=== PATIENT | female | born 1995 | race Caucasian/White ===

== ENCOUNTER 2019-12-22 13:41 | Emergency (ER) | payer BC, OTHER ==
--- NOTE | 2019-12-22 14:06 | ERPHSYRPT ---
- History of Present Illness Time Seen by Provider: 12/22/19 14:04 Source: patient Exam Limitations: no limitations Patient Subjective Stated Complaint: Pt c/o of pain in the right lateral side of neck that radiates to the jawbone and up the head causing blurred vision and head pain, pt states that this began yesterday afternoon and has gotten worse today Triage Nursing Assessment: Pt was brought to the ER by her , hypertensive , pain to right lateral side of neck with palpatation, denies being around anyone sick, nauseous, denies vomiting, rates overall pain as a 5/10 Physician History: Pt c/o of pain in the right lateral side of neck that radiates to the jawbone and up the head causing blurred vision and head pain, pt states that this began yesterday afternoon and has gotten worse today Timing/Duration: gradual onset Severity: moderate ENT Location: ear (R) Associated Symptoms: ear pain (R), facial pain/swelling, No fever, No chills Allergies/Adverse Reactions: No Known Drug Allergies Allergy (Verified 12/22/19 13:56) Home Medications: Losartan Potassium 100 mg PO DAILY 12/22/19 [History] Metoprolol Tartrate 50 mg PO BID 12/22/19 [History] Norethindrone-Ethin. Estradiol [Pirmella 1-35 28 Tablet] 1 each PO DAILY [History] Travel Risk - International Travel Have you traveled outside of the country in past 3 weeks: No Have you or anyone close to you been diagnosed with or: No Do your reside in a community with a known COVID-19 case?: Yes If Yes where:: [place] - Coronavirus Screening Has patient experienced Coronavirus symptoms: No - Review of Systems Constitutional: No Fever, No Chills Eyes: No Symptoms Ears, Nose, & Throat: Ear Pain, Throat Pain Respiratory: No Cough, No Dyspnea Cardiac: No Chest Pain, No Edema, No Syncope Abdominal/Gastrointestinal: No Abdominal Pain, No Nausea, No Vomiting, No Diarrhea Genitourinary Symptoms: No Dysuria Musculoskeletal: No Back Pain, No Neck Pain Skin: No Rash Neurological: No Dizziness, No Focal Weakness, No Sensory Changes Psychological: No Symptoms Endocrine: No Symptoms All Other Systems: Reviewed and Negative - Past Medical History Pertinent Past Medical History: Yes Cardiac History: Hypertension - Past Surgical History Past Surgical History: Yes Gastrointestinal: Cholecystectomy - Social History Smoking Status: Never smoker Exposure to second hand smoke: Yes Drug Use: none Patient Lives Alone: No - Female History Hx Last Menstrual Period: 12/05/2019 Hx Now: No (unsure) - Nursing Vital Signs Nursing Vital Signs: Initial Vital Signs Temperature 98.1 F 12/22/19 13:46 Pulse Rate 54 L 12/22/19 13:46 Blood Pressure 157/110 12/22/19 13:46 O2 Sat by Pulse Oximetry 97 12/22/19 13:46 Pain Scale Pain Intensity 5 - Physical Exam General Appearance: no apparent distress Eye Exam: bilateral eye: normal inspection Ear Exam: right ear: swelling Nasal Exam: normal inspection Throat Exam: pharynx swelling Neck Exam: normal inspection Cardiovascular/Respiratory Exam: chest non-tender Abdominal Exam: non-tender Neurologic Exam: alert, oriented x 3 SpO2: 97 - Course Nursing assessment & vital signs reviewed: Yes Lab/Rad Data: Laboratory Results 12/22/19 Range/Units 14:15 Group A Strep Antibody NOT DETECTED (NEGATIVE) - Progress Progress: unchanged Counseled pt/family regarding: lab results, diagnosis - Departure Departure Disposition: Home Clinical Impression: Pharyngitis, acute Qualifiers: Pharyngitis/tonsillitis etiology: other specified organisms Qualified Code(s): J02.8 - Acute pharyngitis due to other specified organisms Condition: Stable Critical Care Time: No Referrals: SLOANE TAYLOR [Primary Care Provider] - Instructions: Sore Throat, Adult (DC) Additional Instructions: Discharge/Care Plan WAI CÁRDENAS was seen on 12/22/19 in the Emergency Room. The patient was counseled regarding Diagnosis,Lab results, Imaging studies, need for follow up and when to return to the Emergency Room. Prescriptions given: Discharge Note I have spoken with the patient and/or caregivers. I have explained the patient' s condition, diagnosis and treatment plan based on the information available to me at this time. I have answered the patient's and/or caregiver's questions and addressed any concerns. The patient and/or caregivers have as good understanding of the patient's diagnosis, condition and treatment plan as can be expected at this point. The vital signs have been stable. The patient's condition is stable and appropriate for discharge from the emergency department. The patient will pursue further outpatient evaluation with the primary care physician or other designated or consulting physician as outlined in the discharge instructions. The patient and/or caregivers are agreeable to this plan of care and follow-up instructions have been explained in detail. The patient and/or caregivers have received these instruction. The patient/and or caregivers are aware that any significant change in condition or worsening of symptoms should prompt an immediate return to this or the closest emergency department or call 911. Prescriptions: Azithromycin [Zithromax] 250 mg PO UD 5 Days #6 tablet
[2019-12-22 14:56] VITALS: BP 101/59; PULSE 40; O2SAT 98
== END 2019-12-22 14:57 | disposition home or self-care (01) ==
LOC: ED 13:41
DX: J02.8 Acute pharyngitis due to other specified organisms (principal); I10 Essential (primary) hypertension; M54.2 Cervicalgia; R51 Headache
CPT/HCPCS: 87651; 99283

== ENCOUNTER 2020-01-04 14:43 | Emergency (ER) | payer BC ==
--- NOTE | 2020-01-04 15:19 | ERPHSYRPT ---
- History of Present Illness Time Seen by Provider: 01/04/20 15:17 Source: patient Exam Limitations: no limitations Patient Subjective Stated Complaint: pt reports approx 12/16/19 she dropped a mug onto the top of her right foot. pt states while at work today she stepped onto her right foot and heard a "pop" and began having pain to the right foot. Triage Nursing Assessment: pt is aox3, pupils perrl, afebrile, resps easy and non labored, cap refill < 3 seconds, pt skin pink warm dry. slight bruising noted to the dorsal right foot. skin is intact. pedal pulse strong. Physician History: pt reports approx 12/16/19 she dropped a mug onto the top of her right foot. pt states while at work today she stepped onto her right foot and heard a "pop" and began having pain to the right foot. Denies any other injury Method of Injury: twisted Occurred: just prior to arrival Quality: constant Severity of Pain-Max: moderate Severity of Pain-Current: moderate Lower Extremities Pain: ankle: right Modifying Factors: Improves With: nothing Associated Symptoms: popping sensation Allergies/Adverse Reactions: No Known Drug Allergies Allergy (Verified 01/04/20 15:04) Home Medications: Losartan Potassium 100 mg PO DAILY 12/22/19 [History] Metoprolol Tartrate 50 mg PO BID 12/22/19 [History] Norethindrone-Ethin. Estradiol [Pirmella 1-35 28 Tablet] 1 each PO DAILY [History] Hx Tetanus, Diphtheria Vaccination/Date Given: Yes Hx Influenza Vaccination/Date Given: Yes Hx Pneumococcal Vaccination/Date Given: No Immunizations Up to Date: Yes Travel Risk - International Travel Have you traveled outside of the country in past 3 weeks: No Have you or anyone close to you been diagnosed with or: No Do your reside in a community with a known COVID-19 case?: Yes If Yes where:: [place] - Coronavirus Screening Has patient experienced Coronavirus symptoms: No - Review of Systems Constitutional: No Symptoms Eyes: No Symptoms Ears, Nose, & Throat: No Symptoms Respiratory: No Symptoms Cardiac: No Symptoms Abdominal/Gastrointestinal: No Symptoms Genitourinary Symptoms: No Symptoms Musculoskeletal: Fall, Joint Pain, Joint Swelling (right ankle) - Past Medical History Pertinent Past Medical History: Yes Cardiac History: Hypertension - Past Surgical History Past Surgical History: Yes Gastrointestinal: Cholecystectomy - Social History Smoking Status: Never smoker Exposure to second hand smoke: Yes Drug Use: none Patient Lives Alone: Yes - Female History Hx Last Menstrual Period: 12/05/19 Hx Now: (unk) - Nursing Vital Signs Nursing Vital Signs: Initial Vital Signs Temperature 98 F 01/04/20 14:51 Pulse Rate 58 L 01/04/20 14:51 Respiratory Rate 18 01/04/20 14:51 Blood Pressure 142/96 01/04/20 14:51 O2 Sat by Pulse Oximetry 98 01/04/20 14:51 Pain Scale Pain Intensity 3 - Physical Exam General Appearance: no apparent distress Eyes, Ears, Nose, Throat Exam: normal ENT inspection Neck Exam: normal inspection Back Exam: normal inspection Ankle Exam: right ankle: pain, soft tissue tenderness, swelling SpO2: 98 - Radiology Exams Right Ankle X-ray Interpretation: Reviewed by me Ordered Tests: Active Orders 24 hr Category Date Time Status Cold Application STAT Care 01/04/20 14:55 Active ANKLE (3 VIEWS) Stat Exams 01/04/20 15:16 Taken FOOT (MINIMUM 3 VIEWS) Routine Exams 01/04/20 15:46 Taken - Departure Departure Disposition: Home Clinical Impression: Sprain of foot, right Qualifiers: Encounter type: initial encounter Qualified Code(s): S93.601A - Unspecified sprain of right foot, initial encounter Condition: Stable Critical Care Time: No Referrals: SLOANE TAYLOR [Primary Care Provider] - Instructions: Foot Sprain (DC) Additional Instructions: Discharge/Care Plan WAI CABRERA was seen on 01/04/20 in the Emergency Room. The patient was counseled regarding Diagnosis,Lab results, Imaging studies, need for follow up and when to return to the Emergency Room. Prescriptions given: Discharge Note I have spoken with the patient and/or caregivers. I have explained the patient' s condition, diagnosis and treatment plan based on the information available to me at this time. I have answered the patient's and/or caregiver's questions and addressed any concerns. The patient and/or caregivers have as good understanding of the patient's diagnosis, condition and treatment plan as can be expected at this point. The vital signs have been stable. The patient's condition is stable and appropriate for discharge from the emergency department. The patient will pursue further outpatient evaluation with the primary care physician or other designated or consulting physician as outlined in the discharge instructions. The patient and/or caregivers are agreeable to this plan of care and follow-up instructions have been explained in detail. The patient and/or caregivers have received these instruction. The patient/and or caregivers are aware that any significant change in condition or worsening of symptoms should prompt an immediate return to this or the closest emergency department or call 911. WAI CABRERA was seen on 01/04/20 n the Emergency Room. At that time you were treated for an emergent condition, during your visit Laboratory, Radiology and/or other procedures may have been ordered. It is very important that you follow-up with your Primary Care Physician SLOANE TAYLOR within the next 24-48 hours to review your Emergency Room visit and the final results of testing that was ordered. Some test results such as Urine Cultures, Blood Cultures, and other cultures if ordered will not be finalized for 24-48 hours. If you do not have a Primary Care Provider please call the medical records department at [phone] ext [phone] to obtain a copy of your results or you may sign into our patient portal to obtain these results by visiting us @ [email or web address] and completing the following steps: 1. Click on the Patient Portal link 2. Click the Patient Self Enrollment Link to complete the enrollment form and entering your 3. Once the enrollment form is completed you will receive an email with a temporary ID and password at the email address you provided. 4. Next choose a user name and password. Your user name must be at least 4 characters long and your password must be at least 4 characters long. 5. Choose a security question from the list and provide your answer to the question. If you already have signed into the Health Portal you may access your Health Care Information 27/02 by the following steps: 1. Login to our website @ [email or web address] 2. Enter your original user name and password. FAQS The [facility] Health Portal is an online tool that contains your Lab Results, Radiology Reports, Visit History, Discharge Instructions and Health Summary Lab and Radiology Results will not be available for 72 hours on the portal. The Portal is a secure site, passwords are encryted and URLs are re-written so they cannot be copied and pasted. You and authorized family members are the only ones who can access your Portal. Also there is a timeout feature that protects your information if you leave the Portal page open. If you have technical difficulty please use the Contact Us link on the page this will allow you to submit any questions you have regarding the Portal or you may contact the Medical Record Department at [phone] ext [phone]. Prescriptions: Naproxen 375 mg [Naprosyn 375 mg] 375 mg PO Q8H #30 tablet
[2020-01-04 16:39] VITALS: BP 116/63; PULSE 69; O2SAT 95
--- NOTE | 2020-01-04 20:59 | XRAY ---
Indication: Pain following injury 19 days ago. Comparison: None 3 nonweightbearing views right foot demonstrates tiny posterior heel spur. No other bony, articular, or soft tissue abnormalities.
--- NOTE | 2020-01-04 20:59 | XRAY ---
Indication: Pain following injury 19 days ago. Comparison: None 3 view right ankle demonstrates tiny posterior heel spur. No other bony, articular, or soft tissue abnormalities.
== END 2020-01-04 16:38 | disposition home or self-care (01) ==
LOC: ED 14:43
DX: S93.601A Unspecified sprain of right foot, initial encounter (principal); W22.8XXA Striking against or struck by other objects, initial encounter; Y93.89 Activity, other specified; Y92.29 Other specified public building as the place of occurrence of the external cause; Y99.0 Civilian activity done for income or pay
CPT/HCPCS: 73610; 73630; 99284

== ENCOUNTER 2020-08-14 09:29 | Emergency (ER) | payer BC ==
--- NOTE | 2020-08-14 10:01 | ERPHSYRPT ---
- History of Present Illness Time Seen by Provider: 08/14/20 10:01 Source: patient Exam Limitations: no limitations Patient Subjective Stated Complaint: Pt states that she is 10 weeks and took her blood pressure at work and it 169/101 Triage Nursing Assessment: Pt brought to the ER by her boyfriend, tachycardic, rates head pressure as 6/10 until she stands and then it is 8/10, pt feels like her pressure has been running high for about 3-4 days, blood pressure medicine was changed 2 days ago to a different one due to the other was not safe for the baby, pulses normal, pt doesn't appear to be in any distress Physician History: this is a 24-year-old overweight white female who is approximately 10 weeks pre gnant and presents with concerns of hypertension. Patient has a history of hypertension and was on metoprolol and losartan prior to her becoming . However her medication for controlling her blood pressure was changed to nifedipine XL once she was determined to be . Today she felt her head was a little bit cloudy and had pressure. These are her typical symptoms when she has had elevated blood pressure in the past. Patient states that her normal systolic blood pressure is 135 to 148 and her typical diastolic blood pressure is 70s to mid 80s. Timing/Duration: today Severity: mild Associated Symptoms: denies symptoms Allergies/Adverse Reactions: No Known Drug Allergies Allergy (Verified 08/14/20 09:52) Home Medications: NIFEdipine [Nifedipine ER] 30 mg PO BID 08/14/20 [History] Hx Tetanus, Diphtheria Vaccination/Date Given: Yes Hx Influenza Vaccination/Date Given: Yes Hx Pneumococcal Vaccination/Date Given: No Travel Risk - International Travel Have you traveled outside of the country in past 3 weeks: No - Coronavirus Screening Are you exhibiting any of the following symptoms?: No Close contact with a COVID-19 positive Pt in past 14-21 Days: No - Review of Systems Constitutional: No Symptoms Eyes: No Symptoms Ears, Nose, & Throat: No Symptoms Respiratory: No Symptoms Cardiac: No Symptoms Abdominal/Gastrointestinal: No Symptoms Genitourinary Symptoms: No Symptoms Musculoskeletal: No Symptoms Skin: No Symptoms Neurological: Headache (Not really a headache but more of a pressure and fullness sensation.) Psychological: No Symptoms Endocrine: No Symptoms Hematologic/Lymphatic: No Symptoms Immunological/Allergic: No Symptoms All Other Systems: Reviewed and Negative - Past Medical History Pertinent Past Medical History: Yes Neurological History: No Pertinent History ENT History: No Pertinent History Cardiac History: Hypertension Respiratory History: No Pertinent History Endocrine Medical History: No Pertinent History Musculoskeletal History: No Pertinent History GI Medical History: No Pertinent History History: No Pertinent History Psycho-Social History: No Pertinent History Female Reproductive Disorders: No Pertinent History - Past Surgical History Past Surgical History: Yes Neuro Surgical History: No Pertinent History Cardiac: No Pertinent History Respiratory: No Pertinent History Gastrointestinal: Cholecystectomy Genitourinary: No Pertinent History Musculoskeletal: No Pertinent History Female Surgical History: No Pertinent History - Social History Smoking Status: Never smoker Exposure to second hand smoke: Yes Drug Use: none Patient Lives Alone: Yes - Female History Hx Last Menstrual Period: 06/03/2020 Hx Now: Yes - Nursing Vital Signs Nursing Vital Signs: Initial Vital Signs Temperature 98.6 F 08/14/20 09:42 Pulse Rate 5 L 08/14/20 09:42 Blood Pressure 134/92 08/14/20 09:42 O2 Sat by Pulse Oximetry 99 08/14/20 09:42 Pain Scale Pain Intensity 0 - Physical Exam General Appearance: no apparent distress, anxiety, obese Eye Exam: PERRL/EOMI, eyes nml inspection Ears, Nose, Throat Exam: normal ENT inspection Neck Exam: normal inspection, non-tender, supple, full range of motion Respiratory Exam: normal breath sounds, lungs clear, airway intact, No chest tenderness, No respiratory distress Cardiovascular Exam: regular rate/rhythm, normal heart sounds, normal peripheral pulses Gastrointestinal/Abdomen Exam: soft, normal bowel sounds, No tenderness Pelvic Exam: not done Rectal Exam: not done Back Exam: normal inspection, normal range of motion, No CVA tenderness Extremity Exam: normal inspection, normal range of motion, pelvis stable Neurologic Exam: alert, oriented x 3, cooperative, bonbon dipper II-XII nml as tested, normal mood/affect, nml cerebellar function, nml station & gait, sensation nml Skin Exam: normal color, warm, dry Lymphatic Exam: adenopathy SpO2 Interpretation: normal SpO2: 99 O2 Delivery: Room Air - Course Nursing assessment & vital signs reviewed: Yes Ordered Tests: Active Orders 24 hr Category Date Time Status IV Insertion STAT Care 08/14/20 10:21 Active CBC W DIFF Stat Lab 08/14/20 10:21 Completed CMP Stat Lab 08/14/20 10:33 Completed CULTURE,URINE Stat Lab 08/14/20 10:34 Received UA W/RFX UR CULTURE Stat Lab 08/14/20 10:34 Completed Medication Summary Generic Name Dose Route Start Last Admin Trade Name Alisa PRN Reason Stop Dose Admin Sodium Chloride 500 mls @ 500 mls/hr 08/14/20 10:29 08/14/20 10:40 Sodium Chloride 0.9% 500 Ml IV 08/14/20 11:28 500 mls/hr .Q1H ONE Administration Discontinued Medications Generic Name Dose Route Start Last Admin Trade Name Alisa PRN Reason Stop Dose Admin Sodium Chloride Confirm 08/14/20 10:39 Sodium Chloride 0.9% 1000 Ml Administered 08/14/20 10:40 Dose 1,000 mls @ ud .ROUTE .STK-MED ONE Lab/Rad Data: Laboratory Result Diagrams 08/14/20 10:21 08/14/20 10:33 Laboratory Results 08/14/20 08/14/20 08/14/20 Range/Units 10:34 10:33 10:21 WBC 7.9 (4.0-10.5) K/mm3 RBC 4.71 (4.1-5.4) M/mm3 Hgb 13.2 (12.0-16.0) gm/dl Hct 39.7 (35-47) % MCV 84.3 (78-100) fl MCH 28.0 (26-32) pg MCHC 33.2 (32-36) g/dl RDW 13.9 (11.5-14.0) % Plt Count 299 (150-450) K/mm3 MPV 9.1 (7.5-11.0) fl Gran % 72.6 H (36.0-66.0) % Eos # (Auto) 0.08 (0-0.5) Absolute Lymphs (auto) 1.58 (1.0-4.6) Absolute Monos (auto) 0.47 (0.0-1.3) Lymphocytes % 20.1 L (24.0-44.0) % Monocytes % 6.0 (0.0-12.0) % Eosinophils % 1.0 (0.00-5.0) % Basophils % 0.3 (0.0-0.4) % Absolute Granulocytes 5.72 (1.4-6.9) Basophils # 0.02 (0-0.4) Sodium 136 L (137-145) mmol/L Potassium 3.8 (3.5-5.1) mmol/L Chloride 104 (98-107) mmol/L Carbon Dioxide 25 (22-30) mmol/L Anion Gap 11.4 (5-15) MEQ/L BUN 6 L (7-17) mg/dL Creatinine 0.40 L (0.52-1.04) mg/dL Estimated GFR > 60.0 ML/MIN Glucose 109 H (74-106) mg/dL Calcium 9.7 (8.4-10.2) mg/dL Total Bilirubin 0.60 (0.2-1.3) mg/dL AST 27 (14-36) U/L ALT 29 (0-35) U/L Alkaline Phosphatase 87 (38-126) U/L Serum Total Protein 7.6 (6.3-8.2) g/dL Albumin 4.1 (3.5-5.0) g/dL Urine Color ANAM (YELLOW) Urine Appearance CLOUDY (CLEAR) Urine pH 5.0 (5-6) Ur Specific Hutchinson 1.024 (1.005-1.025) Urine Protein 30 (Negative) Urine Ketones NEGATIVE (NEGATIVE) Urine Blood NEGATIVE (0-5) Raghav/ul Urine Nitrite NEGATIVE (NEGATIVE) Urine Bilirubin NEGATIVE (NEGATIVE) Urine Urobilinogen NEGATIVE (0-1) mg/dL Ur Leukocyte Esterase TRACE (NEGATIVE) Urine WBC (Auto) 6-10 (0-5) /HPF Urine RBC (Auto) 3-5 (0-2) /HPF U Epithel Cells (Auto) FEW (FEW) /HPF Urine Bacteria (Auto) FEW (NEGATIVE) /HPF Calcium Oxalate Crystal >100 (NEGATIVE) /HPF Urine Mucus (Auto) MANY (NEGATIVE) /HPF Urine Culture Reflexed YES (NO) Urine Glucose NEGATIVE (NEGATIVE) mg/dL - Progress Progress: improved, re-examined Progress Note: 08/14/20 11:25 Clinically, the patient's symptoms are improving. Her most recent systolic blood pressure is 113. She does have some protein in her urine. She also has a mild, early urinary tract infection and we will give her Keflex. She will follow up with her medication care manager for further management. Counseled pt/family regarding: lab results, diagnosis, need for follow-up - Departure Departure Disposition: Home Clinical Impression: UTI (urinary tract infection) during Condition: Stable Critical Care Time: No Referrals: SLOANE TAYLOR [Primary Care Provider] - Additional Instructions: Drink plenty of fluids. Call your medication care manager today to make arrangements for follow-up appointment and further management. Continue your medication as prescribed. Prescriptions: Cephalexin Mh 500 mg [Keflex 500 mg] 500 mg PO TID #15 capsule
[2020-08-14] MEDS ORDERED: Sodium Chloride 0.9% 500 ML 500 ML IV ONE (10:29)
[2020-08-14 10:39] LABS: Absolute Neutrophil Ct (ANC) 5.72 (1.4-6.9); BASOPHIL % 0.3 % (0.0-0.4); Basophil (Absolute #) 0.02 (0-0.4); Eosinophil (Absolute #) 0.08 (0-0.5); Hematocrit 39.7 % (35-47); Hemoglobin 13.2 gm/dl (12.0-16.0); Lymphocyte (Absolute #) 1.58 (1.0-4.6); Lymphocytes % 20.1 % (24.0-44.0); Mean Cell Volume 84.3 fl (78-100); Mean Corpuscular Hgb Concent. 33.2 g/dl (32-36); Mean Platelet Volume 9.1 fl (7.5-11.0); Monocyte (Absolute #) 0.47 (0.0-1.3); Neutrophil % 72.6 % (36.0-66.0); Platelet Count 299 K/mm3 (150-450); Red Blood Count 4.71 M/mm3 (4.1-5.4); Red Cell Distribution Width 13.9 % (11.5-14.0); White Blood Count 7.9 K/mm3 (4.0-10.5)
[2020-08-14] MEDS ORDERED: Sodium Chloride 0.9% 1000 ML 1,000 ML ONE (10:39)
[2020-08-14 10:51] VITALS: O2SAT 99
[2020-08-14 10:53] LABS: ALBUMIN 4.1 g/dL (3.5-5.0); ALKALINE PHOSPHATASE 87 U/L (38-126); ANION GAP 11.4 MEQ/L (5-15); BLOOD UREA NITROGEN 6 mg/dL (7-17); CHLORIDE 104 mmol/L (98-107); Calcium 9.7 mg/dL (8.4-10.2); Carbon Dioxide 25 mmol/L (22-30); EST GLOMERULAR FILTRATION RATE > 60.0 ML/MIN; Glucose 109 mg/dL (74-106); Potassium 3.8 mmol/L (3.5-5.1); SGOT/AST 27 U/L (14-36); SGPT/ALT 29 U/L (0-35); SODIUM 136 mmol/L (137-145); Total Protein 7.6 g/dL (6.3-8.2)
[2020-08-14 11:12] LABS: Appearance CLOUDY (CLEAR); Bacteria FEW /HPF (NEGATIVE); Bilirubin NEGATIVE (NEGATIVE); Blood NEGATIVE Ery/ul (0-5); Calcium Oxalate Crystals >100 /HPF (NEGATIVE); Epithelial Cells FEW /HPF (FEW); Glucose NEGATIVE (NEGATIVE); Ketones NEGATIVE (NEGATIVE); Leukocyte Esterase TRACE (NEGATIVE); Mucus MANY /HPF (NEGATIVE); Nitrite NEGATIVE (NEGATIVE); Protein,Urine Dip 30 (Negative); Specific Gravity 1.024 (1.005-1.025); Urobilinogen NEGATIVE mg/dL (0-1)
[2020-08-14 11:27] VITALS: BP 113/73; PULSE 95
[2020-08-14] MEDS ORDERED: KEFLEX 500 MG PO ONE (11:27)
[2020-08-14] MEDS ORDERED: KEFLEX 500 MG ONE (11:37)
== END 2020-08-14 11:51 | disposition home or self-care (01) ==
LOC: ED 09:29
DX: O23.41 Unspecified infection of urinary tract in pregnancy, first trimester (principal); Z3A.10 10 weeks gestation of pregnancy; R51.9 Headache, unspecified; I10 Essential (primary) hypertension
CPT/HCPCS: 36000; 36415; 80053; 81001; 85025; 87086; 96360; 99284; A9270-GY

== ENCOUNTER 2020-09-18 14:11 | Emergency (ER) | payer BC ==
--- NOTE | 2020-09-18 14:19 | ERPHSYRPT ---
- History of Present Illness Time Seen by Provider: 09/18/20 14:19 Source: patient Exam Limitations: no limitations Physician History: This is an obese 24-year-old white female with history of hypertension and is 15 weeks who presents with sudden onset of suprapubic cramping without vaginal bleeding that occurred this morning. She was concerned about the cram ping earlier and thought she would come in to be evaluated. 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 She had no dysuria or hematuria. She has had no vaginal bleeding. On arrival, she has no complaints of abdominal pain and the cramping has nearly completely subsided. Ultrasound performed on 08/13/2020, showed a single intrauterine . Timing/Duration: today Activites at Onset: none Quality: cramping Onset Location: suprapubic Pain Radiation: none Severity of Pain-Max: mild Severity of Pain-Current: none Prior abdominal problems: none Sexual intercourse history: non-contributory Modifying Factors: Improves With: nothing Associated Symptoms: denies symptoms Allergies/Adverse Reactions: No Known Drug Allergies Allergy (Verified 09/18/20 14:14) Home Medications: NIFEdipine [Nifedipine ER] 30 mg PO BID 08/14/20 [History] Labetalol HCl 100 mg [Trandate 100 MG] 1 ea DAILY 09/18/20 [History] Hx Tetanus, Diphtheria Vaccination/Date Given: Yes Hx Influenza Vaccination/Date Given: Yes Hx Pneumococcal Vaccination/Date Given: No Travel Risk - International Travel Have you traveled outside of the country in past 3 weeks: No - Coronavirus Screening Are you exhibiting any of the following symptoms?: No Close contact with a COVID-19 positive Pt in past 14-21 Days: No - Review of Systems Constitutional: No Symptoms Eyes: No Symptoms Ears, Nose, & Throat: No Symptoms Respiratory: No Symptoms Cardiac: No Symptoms Abdominal/Gastrointestinal: No Symptoms Genitourinary Symptoms: No Symptoms Musculoskeletal: No Symptoms Skin: No Symptoms Neurological: No Symptoms Psychological: No Symptoms Endocrine: No Symptoms Hematologic/Lymphatic: No Symptoms Immunological/Allergic: No Symptoms All Other Systems: Reviewed and Negative - Past Medical History Pertinent Past Medical History: Yes Neurological History: No Pertinent History ENT History: No Pertinent History Cardiac History: Hypertension Respiratory History: No Pertinent History Endocrine Medical History: No Pertinent History Musculoskeletal History: No Pertinent History GI Medical History: No Pertinent History History: No Pertinent History Psycho-Social History: No Pertinent History Female Reproductive Disorders: No Pertinent History - Past Surgical History Past Surgical History: Yes Neuro Surgical History: No Pertinent History Cardiac: No Pertinent History Respiratory: No Pertinent History Gastrointestinal: Cholecystectomy Genitourinary: No Pertinent History Musculoskeletal: No Pertinent History Female Surgical History: No Pertinent History - Social History Smoking Status: Never smoker Exposure to second hand smoke: Yes Drug Use: none Patient Lives Alone: Yes - Nursing Vital Signs Nursing Vital Signs: Initial Vital Signs Temperature 97.6 F 09/18/20 14:20 Pulse Rate 85 09/18/20 14:20 Respiratory Rate 18 09/18/20 14:20 Blood Pressure 133/88 09/18/20 14:20 O2 Sat by Pulse Oximetry 97 09/18/20 14:20 Pain Scale Pain Intensity 0 - Physical Exam General Appearance: no apparent distress, alert, anxiety, obese Eye Exam: PERRL/EOMI, eyes nml inspection Ears, Nose, Throat Exam: normal ENT inspection, moist mucous membranes Neck Exam: normal inspection, non-tender, supple, full range of motion Respiratory Exam: normal breath sounds, lungs clear, airway intact, No chest tenderness, No respiratory distress Cardiovascular Exam: regular rate/rhythm, normal heart sounds, normal peripheral pulses Gastrointestinal/Abdomen Exam: soft, normal bowel sounds, No tenderness Pelvic Exam: not done Rectal Exam: not done Back Exam: normal inspection, normal range of motion, No CVA tenderness Extremity Exam: normal inspection, normal range of motion, pelvis stable Neurologic Exam: alert, oriented x 3, cooperative, cob sawyer II-XII nml as tested, normal mood/affect, nml cerebellar function, nml station & gait, sensation nml Skin Exam: normal color, warm, dry Lymphatic Exam: No adenopathy SpO2 Interpretation: normal O2 Delivery: Room Air - Course Nursing assessment & vital signs reviewed: Yes Ordered Tests: Active Orders 24 hr Category Date Time Status OB >14 WKS 1st GESTATION [US] Stat Exams 09/18/20 14:49 Completed CBC W DIFF Stat Lab 09/18/20 14:46 Completed CMP Stat Lab 09/18/20 14:46 Completed UA W/RFX UR CULTURE Stat Lab 09/18/20 15:11 Completed Lab/Rad Data: Laboratory Result Diagrams 09/18/20 14:46 09/18/20 14:46 Laboratory Results 09/18/20 09/18/20 09/18/20 Range/Units 15:11 14:46 14:46 WBC 9.5 (4.0-10.5) K/mm3 RBC 3.98 L (4.1-5.4) M/mm3 Hgb 11.1 L (12.0-16.0) gm/dl Hct 33.8 L (35-47) % MCV 84.9 (78-100) fl MCH 27.9 (26-32) pg MCHC 32.8 (32-36) g/dl RDW 15.0 H (11.5-14.0) % Plt Count 322 (150-450) K/mm3 MPV 9.0 (7.5-11.0) fl Gran % 72.9 H (36.0-66.0) % Eos # (Auto) 0.09 (0-0.5) Absolute Lymphs (auto) 1.90 (1.0-4.6) Absolute Monos (auto) 0.57 (0.0-1.3) Lymphocytes % 20.0 L (24.0-44.0) % Monocytes % 6.0 (0.0-12.0) % Eosinophils % 0.9 (0.00-5.0) % Basophils % 0.2 (0.0-0.4) % Absolute Granulocytes 6.93 H (1.4-6.9) Basophils # 0.02 (0-0.4) Sodium 134 L (137-145) mmol/L Potassium 3.5 (3.5-5.1) mmol/L Chloride 104 (98-107) mmol/L Carbon Dioxide 21 L (22-30) mmol/L Anion Gap 12.3 (5-15) MEQ/L BUN 7 (7-17) mg/dL Creatinine 0.33 L (0.52-1.04) mg/dL Estimated GFR > 60.0 ML/MIN Glucose 86 (74-106) mg/dL Calcium 9.8 (8.4-10.2) mg/dL Total Bilirubin 0.50 (0.2-1.3) mg/dL AST 25 (14-36) U/L ALT 29 (0-35) U/L Alkaline Phosphatase 70 (38-126) U/L Serum Total Protein 6.8 (6.3-8.2) g/dL Albumin 3.7 (3.5-5.0) g/dL Urine Color ANAM (YELLOW) Urine Appearance CLOUDY (CLEAR) Urine pH 5.0 (5-6) Ur Specific [place] 1.024 (1.005-1.025) Urine Protein 30 (Negative) Urine Ketones NEGATIVE (NEGATIVE) Urine Blood NEGATIVE (0-5) Raghav/ul Urine Nitrite NEGATIVE (NEGATIVE) Urine Bilirubin NEGATIVE (NEGATIVE) Urine Urobilinogen NEGATIVE (0-1) mg/dL Ur Leukocyte Esterase NEGATIVE (NEGATIVE) Urine WBC (Auto) 0-2 (0-5) /HPF Urine RBC (Auto) 3-5 (0-2) /HPF U Epithel Cells (Auto) RARE (FEW) /HPF Urine Bacteria (Auto) FEW (NEGATIVE) /HPF Amorphous Crystals FEW (NEGATIVE) /HPF Urine Mucus (Auto) MANY (NEGATIVE) /HPF Urine Culture Reflexed NO (NO) Urine Glucose NEGATIVE (NEGATIVE) mg/dL - Progress Progress: improved, re-examined Air Movement: good Progress Note: 09/18/20 15:29 Limited transabdominal obstetric ultrasound reveals a single viable intrauterine . No other acute or new findings when compared to ultrasound performed on 08/13/2020 Blood Culture(s) Obtained: No Antibiotics given: No Counseled pt/family regarding: lab results, diagnosis, need for follow-up, rad results - Departure Departure Disposition: Home Clinical Impression: Abdominal pain during in second trimester Condition: Stable Critical Care Time: No Referrals: SLOANE TAYLOR [Primary Care Provider] - Additional Instructions: Follow-up with Dr. Guzman for further management. Return to the emergency department if symptoms worsen or recur.
[2020-09-18 15:21] LABS: Hematocrit 33.8 % (35-47); Hemoglobin 11.1 gm/dl (12.0-16.0); Mean Cell Volume 84.9 fl (78-100); Mean Corpuscular Hemoglobin 27.9 pg (26-32); Red Blood Count 3.98 M/mm3 (4.1-5.4); White Blood Count 9.5 K/mm3 (4.0-10.5)
[2020-09-18 15:22] LABS: Absolute Neutrophil Ct (ANC) 6.93 (1.4-6.9); BASOPHIL % 0.2 % (0.0-0.4); Basophil (Absolute #) 0.02 (0-0.4); Eosinophil % 0.9 % (0.00-5.0); Eosinophil (Absolute #) 0.09 (0-0.5); Mean Corpuscular Hgb Concent. 32.8 g/dl (32-36); Monocyte (Absolute #) 0.57 (0.0-1.3); Neutrophil % 72.9 % (36.0-66.0); Platelet Count 322 K/mm3 (150-450)
--- NOTE | 2020-09-18 15:25 | XRAY ---
Indication: Cramping. Previous subchorionic hemorrhage. Limited transabdominal early OB ultrasound performed. Comparison: August 13, 2020. Again there is a single viable intrauterine with heart rate 167 bpm. No abnormal subchorionic fluid or new/acute findings. No measurements obtained.
[2020-09-18 15:33] LABS: Amourphous Crystal FEW /HPF (NEGATIVE); Appearance CLOUDY (CLEAR); Bacteria FEW /HPF (NEGATIVE); Bilirubin NEGATIVE (NEGATIVE); Blood NEGATIVE Ery/ul (0-5); Epithelial Cells RARE /HPF (FEW); Glucose NEGATIVE (NEGATIVE); Ketones NEGATIVE (NEGATIVE); Leukocyte Esterase NEGATIVE (NEGATIVE); Mucus MANY /HPF (NEGATIVE); Nitrite NEGATIVE (NEGATIVE); Protein,Urine Dip 30 (Negative); Specific Gravity 1.024 (1.005-1.025); Urobilinogen NEGATIVE mg/dL (0-1); WBC 0-2 /HPF (0-5)
[2020-09-18 15:42] LABS: ALBUMIN 3.7 g/dL (3.5-5.0); ALKALINE PHOSPHATASE 70 U/L (38-126); ANION GAP 12.3 MEQ/L (5-15); BLOOD UREA NITROGEN 7 mg/dL (7-17); CHLORIDE 104 mmol/L (98-107); Calcium 9.8 mg/dL (8.4-10.2); Carbon Dioxide 21 mmol/L (22-30); Creatinine 1 0.33 mg/dL (0.52-1.04); EST GLOMERULAR FILTRATION RATE > 60.0 ML/MIN; Glucose 86 mg/dL (74-106); Potassium 3.5 mmol/L (3.5-5.1); SGOT/AST 25 U/L (14-36); SGPT/ALT 29 U/L (0-35); SODIUM 134 mmol/L (137-145); Total Protein 6.8 g/dL (6.3-8.2)
[2020-09-18 16:13] VITALS: BP 135/92; PULSE 76; O2SAT 98
== END 2020-09-18 16:15 | disposition home or self-care (01) ==
LOC: ED 14:11
DX: Z34.82 Encounter for supervision of other normal pregnancy, second trimester (principal); R10.2 Pelvic and perineal pain
CPT/HCPCS: 36415; 76805; 80053; 81001; 85025; 99283

== ENCOUNTER 2020-09-26 13:35 | Emergency (ER) | payer BC ==
--- NOTE | 2020-09-26 14:27 | ERPHSYRPT ---
- History of Present Illness Time Seen by Provider: 09/26/20 13:55 Historian: patient Exam Limitations: no limitations Patient Subjective Stated Complaint: PT states. I was at work and I started cramping. I am 16 weeks ." Triage Nursing Assessment: Pt presented alert and oriented X 3, skin pwd. Pt ambulates with an upright steady gait, able to speak in clear full sentences. Pt in nio apparent respiratroy distress. Physician History: 2020[birth year]05-24 or 16 weeks gestation who presents with abdominal pain. This crampy pain started while she was at work she does not have any bleeding or discharge to speak of she was told by her WEAVER HAND that her potassium was low at her last visit. Timing/Duration: today Activities at Onset: other (working) Quality: cramping Abdominal Pain Onset Location: suprapubic Pain Radiation: no radiation Severity of Pain-Max: moderate Severity of Pain-Current: mild Modifying Factors: Improves With: nothing Associated Symptoms: denies symptoms Allergies/Adverse Reactions: No Known Drug Allergies Allergy (Verified 09/18/20 14:14) Home Medications: NIFEdipine [Nifedipine ER] 30 mg PO BID 08/14/20 [History] Labetalol HCl 100 mg [Trandate 100 MG] 1 ea DAILY 09/18/20 [History] Metoclopramide HCl [Reglan] 5 mg PO BID 09/26/20 [History] Hx Tetanus, Diphtheria Vaccination/Date Given: No Hx Influenza Vaccination/Date Given: Yes Hx Pneumococcal Vaccination/Date Given: No Immunizations Up to Date: Yes Travel Risk - International Travel Have you traveled outside of the country in past 3 weeks: No - Coronavirus Screening Are you exhibiting any of the following symptoms?: No Close contact with a COVID-19 positive Pt in past 14-21 Days: No - Review of Systems Constitutional: No Fever, No Chills Eyes: No Symptoms Ears, Nose, & Throat: No Symptoms Respiratory: No Cough, No Dyspnea Cardiac: No Chest Pain, No Edema, No Syncope Abdominal/Gastrointestinal: No Abdominal Pain, No Nausea, No Vomiting, No Diarrhea Genitourinary Symptoms: No Dysuria Musculoskeletal: No Back Pain, No Neck Pain Skin: No Rash Neurological: No Dizziness, No Focal Weakness, No Sensory Changes Psychological: No Symptoms Endocrine: No Symptoms All Other Systems: Reviewed and Negative - Past Medical History Pertinent Past Medical History: Yes Neurological History: No Pertinent History ENT History: No Pertinent History Cardiac History: Hypertension Respiratory History: No Pertinent History Endocrine Medical History: No Pertinent History Musculoskeletal History: No Pertinent History GI Medical History: No Pertinent History History: No Pertinent History Psycho-Social History: No Pertinent History Female Reproductive Disorders: No Pertinent History - Past Surgical History Past Surgical History: Yes Neuro Surgical History: No Pertinent History Cardiac: No Pertinent History Respiratory: No Pertinent History Gastrointestinal: Cholecystectomy Genitourinary: No Pertinent History Musculoskeletal: No Pertinent History Female Surgical History: No Pertinent History - Social History Smoking Status: Never smoker Exposure to second hand smoke: Yes Drug Use: none Patient Lives Alone: No - Female History Hx Last Menstrual Period: 06/03/2020 Hx Now: Yes Expected Date of Delivery: 03/13/21 - Nursing Vital Signs Nursing Vital Signs: Initial Vital Signs Temperature 97.6 F 09/26/20 13:43 Pulse Rate 86 09/26/20 13:43 Respiratory Rate 22 09/26/20 13:43 Blood Pressure 133/89 09/26/20 13:43 O2 Sat by Pulse Oximetry 100 09/26/20 13:43 Pain Scale Pain Intensity 4 - Physical Exam General Appearance: mild distress, alert Eye Exam: PERRL/EOMI, eyes nml inspection Ears, Nose, Throat Exam: normal ENT inspection, pharynx normal, moist mucous membranes Neck Exam: normal inspection, non-tender, supple, full range of motion Respiratory Exam: normal breath sounds, lungs clear, No respiratory distress Cardiovascular Exam: regular rate/rhythm, normal heart sounds Gastrointestinal/Abdomen Exam: soft, other ( heart tones positive), No tenderness, No mass Back Exam: normal inspection, normal range of motion, No CVA tenderness, No vertebral tenderness Extremity Exam: normal inspection, normal range of motion, pelvis stable Neurologic Exam: alert, oriented x 3, cooperative, normal mood/affect, nml cerebellar function, sensation nml, No motor deficits Skin Exam: normal color, warm, dry SpO2: 100 Ordered Tests: Active Orders 24 hr Category Date Time Status BMP Stat Lab 09/26/20 14:22 Completed CBC W DIFF Stat Lab 09/26/20 14:22 Completed UA W/RFX UR CULTURE Stat Lab 09/26/20 14:20 Completed Lab/Rad Data: Laboratory Result Diagrams 09/26/20 14:22 09/26/20 14:22 Laboratory Results 09/26/20 09/26/20 09/26/20 Range/Units 14:22 14:22 14:20 WBC 10.8 H (4.0-10.5) K/mm3 RBC 4.18 (4.1-5.4) M/mm3 Hgb 11.6 L (12.0-16.0) gm/dl Hct 36.0 (35-47) % MCV 86.1 (78-100) fl MCH 27.8 (26-32) pg MCHC 32.2 (32-36) g/dl RDW 15.4 H (11.5-14.0) % Plt Count 341 (150-450) K/mm3 MPV 9.1 (7.5-11.0) fl Gran % 73.1 H (36.0-66.0) % Eos # (Auto) 0.13 (0-0.5) Absolute Lymphs (auto) 2.24 (1.0-4.6) Absolute Monos (auto) 0.52 (0.0-1.3) Lymphocytes % 20.7 L (24.0-44.0) % Monocytes % 4.8 (0.0-12.0) % Eosinophils % 1.2 (0.00-5.0) % Basophils % 0.2 (0.0-0.4) % Absolute Granulocytes 7.89 H (1.4-6.9) Basophils # 0.02 (0-0.4) Sodium 134 L (137-145) mmol/L Potassium 3.7 (3.5-5.1) mmol/L Chloride 104 (98-107) mmol/L Carbon Dioxide 21 L (22-30) mmol/L Anion Gap 12.8 (5-15) MEQ/L BUN 9 (7-17) mg/dL Creatinine 0.48 L (0.52-1.04) mg/dL Estimated GFR > 60.0 ML/MIN Glucose 85 (74-106) mg/dL Calcium 10.1 (8.4-10.2) mg/dL Urine Color YELLOW (YELLOW) Urine Appearance CLOUDY (CLEAR) Urine pH 5.0 (5-6) Ur Specific [place] 1.025 (1.005-1.025) Urine Protein 30 (Negative) Urine Ketones SMALL (NEGATIVE) Urine Blood NEGATIVE (0-5) Raghav/ul Urine Nitrite NEGATIVE (NEGATIVE) Urine Bilirubin NEGATIVE (NEGATIVE) Urine Urobilinogen 2 (0-1) mg/dL Ur Leukocyte Esterase NEGATIVE (NEGATIVE) Urine WBC (Auto) 3-5 (0-5) /HPF Urine RBC (Auto) NONE (0-2) /HPF U Hyaline Cast (Auto) 3-5 (0-2) /LPF U Epithel Cells (Auto) FEW (FEW) /HPF Urine Bacteria (Auto) FEW (NEGATIVE) /HPF Amorphous Crystals FEW (NEGATIVE) /HPF Urine Mucus (Auto) MODERATE (NEGATIVE) /HPF Urine Culture Reflexed NO (NO) Urine Glucose NEGATIVE (NEGATIVE) mg/dL - Progress Progress: improved, pain not gone completely - Departure Departure Disposition: Home Clinical Impression: Threatened miscarriage in early Condition: Stable Critical Care Time: No Referrals: SLOANE TAYLOR [Primary Care Provider] - Instructions: Threatened Miscarriage (DC)
[2020-09-26 14:31] LABS: Absolute Neutrophil Ct (ANC) 7.89 (1.4-6.9); BASOPHIL % 0.2 % (0.0-0.4); Basophil (Absolute #) 0.02 (0-0.4); Eosinophil % 1.2 % (0.00-5.0); Eosinophil (Absolute #) 0.13 (0-0.5); Hemoglobin 11.6 gm/dl (12.0-16.0); Lymphocyte (Absolute #) 2.24 (1.0-4.6); Lymphocytes % 20.7 % (24.0-44.0); Mean Cell Volume 86.1 fl (78-100); Mean Corpuscular Hemoglobin 27.8 pg (26-32); Mean Corpuscular Hgb Concent. 32.2 g/dl (32-36); Mean Platelet Volume 9.1 fl (7.5-11.0); Monocyte (Absolute #) 0.52 (0.0-1.3); Monocytes % 4.8 % (0.0-12.0); Neutrophil % 73.1 % (36.0-66.0); Platelet Count 341 K/mm3 (150-450); Red Blood Count 4.18 M/mm3 (4.1-5.4); Red Cell Distribution Width 15.4 % (11.5-14.0); White Blood Count 10.8 K/mm3 (4.0-10.5)
[2020-09-26 14:35] LABS: Amourphous Crystal FEW /HPF (NEGATIVE); Appearance CLOUDY (CLEAR); Bacteria FEW /HPF (NEGATIVE); Bilirubin NEGATIVE (NEGATIVE); Blood NEGATIVE Ery/ul (0-5); Epithelial Cells FEW /HPF (FEW); Glucose NEGATIVE (NEGATIVE); Ketones SMALL (NEGATIVE); Leukocyte Esterase NEGATIVE (NEGATIVE); Mucus MODERATE /HPF (NEGATIVE); Nitrite NEGATIVE (NEGATIVE); Protein,Urine Dip 30 (Negative); Specific Gravity 1.025 (1.005-1.025); Urobilinogen 2 mg/dL (0-1)
[2020-09-26 14:41] LABS: ANION GAP 12.8 MEQ/L (5-15); BLOOD UREA NITROGEN 9 mg/dL (7-17); CHLORIDE 104 mmol/L (98-107); Calcium 10.1 mg/dL (8.4-10.2); Carbon Dioxide 21 mmol/L (22-30); Creatinine 1 0.48 mg/dL (0.52-1.04); EST GLOMERULAR FILTRATION RATE > 60.0 ML/MIN; Glucose 85 mg/dL (74-106); Potassium 3.7 mmol/L (3.5-5.1); SODIUM 134 mmol/L (137-145)
[2020-09-26 14:56] VITALS: BP 118/74; PULSE 74; O2SAT 99
== END 2020-09-26 14:56 | disposition home or self-care (01) ==
LOC: ED 13:35
DX: O20.0 Threatened abortion (principal); Z3A.16 16 weeks gestation of pregnancy
CPT/HCPCS: 36415; 80048; 81001; 85025; 99283

== ENCOUNTER 2020-10-02 17:26 | Emergency (ER) | payer BC ==
--- NOTE | 2020-10-02 17:59 | ERPHSYRPT ---
- History of Present Illness Time Seen by Provider: 10/02/20 17:45 Patient Subjective Stated Complaint: PT states "I am still cramping. I have been here a few times and it is not getting any better." Triage Nursing Assessment: Pt presented alert and oriented X 3, skin pwd pt ambulates with an upright steady gait, able to speak in clear full sentences pt in no apparent respiratory distress. Physician History: This is a 24-year-old obese white female who is 17 weeks and has a history of hypertension and taking nifedipine and labetalol for this. Patient has been seen in the emergency department 4 times for similar symptoms. That is, suprapubic cramping with no vaginal bleeding and no vaginal discharge. Patient started back to work today and was standing for long period of time which prompted the cramping in the suprapubic region. She has had no fevers. She has no chest pain she is not short of breath. This is the patient's first . She has had an ultrasound on 08/13/2020 which showed a single intrauterine with no abnormalities present. A repeat ultrasound was performed on 09/18/2020 which showed a single viable intrauterine and no abnormalities present. Patient is not short of breath. Recently, patient received a saline infusion because the melting operator felt that the patient's symptoms may be related to mild dehydration and she received this within the last 2 to 3 days. Timing/Duration: today Severity: mild Associated Symptoms: abdominal pain (Mild suprapubic cramping), No nausea, No vomiting, No shortness of breath, No chest pain, No fever, No weakness Allergies/Adverse Reactions: No Known Drug Allergies Allergy (Verified 09/29/20 16:09) Home Medications: NIFEdipine [Nifedipine ER] 30 mg PO BID 08/14/20 [History] Labetalol HCl 100 mg [Trandate 100 MG] 1 ea PO TID 09/18/20 [History] Metoclopramide HCl [Reglan] 5 mg PO BID 09/26/20 [History] Vits W-Ca,Fe,FA(<1Mg) [] 1 each PO DAILY 09/29/20 [History] Pyridoxine HCl 100 mg [Vitamin B-6 (Pyridoxine) 100 MG] 100 mg PO DAILY 09/29/20 [History] Hx Tetanus, Diphtheria Vaccination/Date Given: No Hx Influenza Vaccination/Date Given: Yes Hx Pneumococcal Vaccination/Date Given: No Immunizations Up to Date: Yes Travel Risk - International Travel Have you traveled outside of the country in past 3 weeks: No - Coronavirus Screening Are you exhibiting any of the following symptoms?: No Close contact with a COVID-19 positive Pt in past 14-21 Days: No - Review of Systems Constitutional: No Symptoms Eyes: No Symptoms Ears, Nose, & Throat: No Symptoms Respiratory: No Symptoms Cardiac: No Symptoms Abdominal/Gastrointestinal: Abdominal Pain (Mild suprapubic cramping), No Nausea, No Vomiting, No Diarrhea Genitourinary Symptoms: No Symptoms, No Vaginal Bleeding, No Vaginal Discharge Musculoskeletal: No Symptoms Neurological: No Symptoms Psychological: Anxiety Endocrine: No Symptoms Hematologic/Lymphatic: No Symptoms Immunological/Allergic: No Symptoms All Other Systems: Reviewed and Negative - Past Medical History Pertinent Past Medical History: Yes Neurological History: No Pertinent History ENT History: No Pertinent History Cardiac History: Hypertension Respiratory History: No Pertinent History Endocrine Medical History: No Pertinent History Musculoskeletal History: No Pertinent History GI Medical History: Gallbladder Disease History: No Pertinent History Psycho-Social History: No Pertinent History Female Reproductive Disorders: No Pertinent History - Past Surgical History Past Surgical History: Yes Neuro Surgical History: No Pertinent History Cardiac: No Pertinent History Respiratory: No Pertinent History Gastrointestinal: Cholecystectomy Genitourinary: No Pertinent History Musculoskeletal: No Pertinent History Female Surgical History: No Pertinent History - Social History Smoking Status: Never smoker Exposure to second hand smoke: Yes (daily) Drug Use: none Patient Lives Alone: No - Female History Hx Last Menstrual Period: 06/03/2020 Hx Now: Yes Expected Date of Delivery: 03/10/21 - Nursing Vital Signs Nursing Vital Signs: Initial Vital Signs Temperature 98.4 F 10/02/20 17:34 Pulse Rate 80 10/02/20 17:34 Respiratory Rate 24 10/02/20 17:34 Blood Pressure 144/93 10/02/20 17:34 O2 Sat by Pulse Oximetry 96 10/02/20 17:34 Pain Scale Pain Intensity 4 - Physical Exam General Appearance: no apparent distress, alert, anxiety, obese Eye Exam: PERRL/EOMI, eyes nml inspection Ears, Nose, Throat Exam: normal ENT inspection, moist mucous membranes Neck Exam: normal inspection, non-tender, supple, full range of motion Respiratory Exam: normal breath sounds, lungs clear, airway intact, No chest tenderness, No respiratory distress Cardiovascular Exam: regular rate/rhythm, normal heart sounds, normal peripheral pulses Gastrointestinal/Abdomen Exam: soft, normal bowel sounds, tenderness (Mild suprapubic cramping), No guarding, No rebound Pelvic Exam: No not done Rectal Exam: No not done Back Exam: normal inspection, normal range of motion, CVA tenderness, vertebral tenderness Extremity Exam: normal inspection, normal range of motion, pelvis stable Neurologic Exam: alert, oriented x 3, cooperative, hospital receiving clerk II-XII nml as tested, normal mood/affect, nml cerebellar function, nml station & gait, sensation nml Skin Exam: normal color, warm, dry Lymphatic Exam: No adenopathy SpO2 Interpretation: normal SpO2: 96 O2 Delivery: Room Air Ordered Tests: Active Orders 24 hr Category Date Time Status AMYLASE Stat Lab 10/02/20 18:00 Completed CBC W DIFF Stat Lab 10/02/20 18:00 Completed CMP Stat Lab 10/02/20 18:00 Completed CULTURE,URINE Stat Lab 10/02/20 17:50 Received LIPASE Stat Lab 10/02/20 18:00 Completed Lactic Acid Stat Lab 10/02/20 18:08 Completed UA W/RFX UR CULTURE Stat Lab 10/02/20 17:50 Completed Medication Summary Discontinued Medications Generic Name Dose Route Start Last Admin Trade Name Amariq PRN Reason Stop Dose Admin Potassium Chloride 20 meq 10/02/20 18:25 10/02/20 18:31 Klor Con 10 Meq PO 10/02/20 18:26 20 meq STAT ONE Administration Potassium Chloride Confirm 10/02/20 18:30 Klor Con 10 Meq Administered 10/02/20 18:31 Dose 20 meq PO .STK-MED ONE Lab/Rad Data: Laboratory Result Diagrams 10/02/20 18:00 10/02/20 18:00 Laboratory Results 10/02/20 10/02/20 10/02/20 Range/Units 18:08 18:00 18:00 WBC 9.9 (4.0-10.5) K/mm3 RBC 3.90 L (4.1-5.4) M/mm3 Hgb 10.5 L (12.0-16.0) gm/dl Hct 33.2 L (35-47) % MCV 85.1 (78-100) fl MCH 26.9 (26-32) pg MCHC 31.6 L (32-36) g/dl RDW 15.1 H (11.5-14.0) % Plt Count 325 (150-450) K/mm3 MPV 9.2 (7.5-11.0) fl Gran % 72.1 H (36.0-66.0) % Eos # (Auto) 0.12 (0-0.5) Absolute Lymphs (auto) 2.07 (1.0-4.6) Absolute Monos (auto) 0.56 (0.0-1.3) Lymphocytes % 20.9 L (24.0-44.0) % Monocytes % 5.7 (0.0-12.0) % Eosinophils % 1.2 (0.00-5.0) % Basophils % 0.1 (0.0-0.4) % Absolute Granulocytes 7.14 H (1.4-6.9) Basophils # 0.01 (0-0.4) Sodium 134 L (137-145) mmol/L Potassium 3.2 L (3.5-5.1) mmol/L Chloride 104 (98-107) mmol/L Carbon Dioxide 20 L (22-30) mmol/L Anion Gap 13.8 (5-15) MEQ/L BUN 5 L (7-17) mg/dL Creatinine 0.45 L (0.52-1.04) mg/dL Estimated GFR > 60.0 ML/MIN Glucose 102 (74-106) mg/dL Lactic Acid 0.9 (0.4-2.0) Calcium 9.4 (8.4-10.2) mg/dL Total Bilirubin 0.60 (0.2-1.3) mg/dL AST 34 (14-36) U/L ALT 39 H (0-35) U/L Alkaline Phosphatase 69 (38-126) U/L Serum Total Protein 7.1 (6.3-8.2) g/dL Albumin 3.9 (3.5-5.0) g/dL Amylase 43 (30-110) U/L Lipase 61 (23-300) U/L Urine Color (YELLOW) Urine Appearance (CLEAR) Urine pH (5-6) Ur Specific Schroeder (1.005-1.025) Urine Protein (Negative) Urine Ketones (NEGATIVE) Urine Blood (0-5) Raghav/ul Urine Nitrite (NEGATIVE) Urine Bilirubin (NEGATIVE) Urine Urobilinogen (0-1) mg/dL Ur Leukocyte Esterase (NEGATIVE) Urine WBC (Auto) (0-5) /HPF Urine RBC (Auto) (0-2) /HPF U Epithel Cells (Auto) (FEW) /HPF Urine Bacteria (Auto) (NEGATIVE) /HPF Urine Mucus (Auto) (NEGATIVE) /HPF Urine Culture Reflexed (NO) Urine Glucose (NEGATIVE) mg/dL 10/02/20 Range/Units 17:50 WBC (4.0-10.5) K/mm3 RBC (4.1-5.4) M/mm3 Hgb (12.0-16.0) gm/dl Hct (35-47) % MCV (78-100) fl MCH (26-32) pg MCHC (32-36) g/dl RDW (11.5-14.0) % Plt Count (150-450) K/mm3 MPV (7.5-11.0) fl Gran % (36.0-66.0) % Eos # (Auto) (0-0.5) Absolute Lymphs (auto) (1.0-4.6) Absolute Monos (auto) (0.0-1.3) Lymphocytes % (24.0-44.0) % Monocytes % (0.0-12.0) % Eosinophils % (0.00-5.0) % Basophils % (0.0-0.4) % Absolute Granulocytes (1.4-6.9) Basophils # (0-0.4) Sodium (137-145) mmol/L Potassium (3.5-5.1) mmol/L Chloride (98-107) mmol/L Carbon Dioxide (22-30) mmol/L Anion Gap (5-15) MEQ/L BUN (7-17) mg/dL Creatinine (0.52-1.04) mg/dL Estimated GFR ML/MIN Glucose (74-106) mg/dL Lactic Acid (0.4-2.0) Calcium (8.4-10.2) mg/dL Total Bilirubin (0.2-1.3) mg/dL AST (14-36) U/L ALT (0-35) U/L Alkaline Phosphatase (38-126) U/L Serum Total Protein (6.3-8.2) g/dL Albumin (3.5-5.0) g/dL Amylase (30-110) U/L Lipase (23-300) U/L Urine Color ANAM (YELLOW) Urine Appearance CLOUDY (CLEAR) Urine pH 5.0 (5-6) Ur Specific Schroeder 1.034 (1.005-1.025) Urine Protein 100 (Negative) Urine Ketones TRACE (NEGATIVE) Urine Blood NEGATIVE (0-5) Raghav/ul Urine Nitrite NEGATIVE (NEGATIVE) Urine Bilirubin SMALL (NEGATIVE) Urine Urobilinogen 2 (0-1) mg/dL Ur Leukocyte Esterase NEGATIVE (NEGATIVE) Urine WBC (Auto) 6-10 (0-5) /HPF Urine RBC (Auto) 3-5 (0-2) /HPF U Epithel Cells (Auto) RARE (FEW) /HPF Urine Bacteria (Auto) MANY (NEGATIVE) /HPF Urine Mucus (Auto) MANY (NEGATIVE) /HPF Urine Culture Reflexed YES (NO) Urine Glucose NEGATIVE (NEGATIVE) mg/dL - Progress Progress: improved, re-examined Progress Note: 10/02/20 18:46 Medical decision making: The patient has no vaginal bleeding and no vaginal d ischarge. She has mild hypokalemia and we supplemented her with potassium today. She is to continue taking her vitamins. She is to push oral fluid intake. She was told to eat bananas and green leafy vegetables. She is also told to rest over the weekend and contact her OB doctor on Monday, October 05, 2020. I did speak with Dr. Lew who is covering for the [facility]. He agrees with the above plan. He also does not think that the patient has urinary tract infection. I reviewed the lab work and the patient's vital signs and clinical findings with him. He also does not feel that is necessary to order another ultrasound. Patient's heart tones is in the 16 0s range. Discussed with : Len Counseled pt/family regarding: lab results, diagnosis, need for follow-up - Departure Departure Disposition: Home Clinical Impression: Abdominal pain during in second trimester Condition: Stable Critical Care Time: No Referrals: SLOANE TAYLOR [Primary Care Provider] - Additional Instructions: Rest through the weekend and includes Monday, October 05, 2020. Follow-up with your melting operator on Monday, October 05, 2020 for further management. Drink plenty of fluids. Take your vitamins and iron as prescribed/instructed. We return to the emergency department if you are having a different type of pain or cramping or have associated vaginal discharge, vaginal bleeding or vomiting episodes. Forms: Work/School Release Form
[2020-10-02 18:18] LABS: ALBUMIN 3.9 g/dL (3.5-5.0); ALKALINE PHOSPHATASE 69 U/L (38-126); AMYLASE 43 U/L (30-110); ANION GAP 13.8 MEQ/L (5-15); Absolute Neutrophil Ct (ANC) 7.14 (1.4-6.9); BASOPHIL % 0.1 % (0.0-0.4); BLOOD UREA NITROGEN 5 mg/dL (7-17); Basophil (Absolute #) 0.01 (0-0.4); CHLORIDE 104 mmol/L (98-107); Calcium 9.4 mg/dL (8.4-10.2); Carbon Dioxide 20 mmol/L (22-30); Creatinine 1 0.45 mg/dL (0.52-1.04); EST GLOMERULAR FILTRATION RATE > 60.0 ML/MIN; Eosinophil % 1.2 % (0.00-5.0); Eosinophil (Absolute #) 0.12 (0-0.5); Glucose 102 mg/dL (74-106); Hematocrit 33.2 % (35-47); Hemoglobin 10.5 gm/dl (12.0-16.0); LIPASE 61 U/L (23-300); Lymphocyte (Absolute #) 2.07 (1.0-4.6); Lymphocytes % 20.9 % (24.0-44.0); Mean Cell Volume 85.1 fl (78-100); Mean Corpuscular Hemoglobin 26.9 pg (26-32); Mean Corpuscular Hgb Concent. 31.6 g/dl (32-36); Mean Platelet Volume 9.2 fl (7.5-11.0); Monocyte (Absolute #) 0.56 (0.0-1.3); Monocytes % 5.7 % (0.0-12.0); Neutrophil % 72.1 % (36.0-66.0); Platelet Count 325 K/mm3 (150-450); Potassium 3.2 mmol/L (3.5-5.1); Red Cell Distribution Width 15.1 % (11.5-14.0); SGOT/AST 34 U/L (14-36); SGPT/ALT 39 U/L (0-35); SODIUM 134 mmol/L (137-145); Total Protein 7.1 g/dL (6.3-8.2); White Blood Count 9.9 K/mm3 (4.0-10.5)
[2020-10-02 18:19] LABS: Appearance CLOUDY (CLEAR); Bacteria MANY /HPF (NEGATIVE); Bilirubin SMALL (NEGATIVE); Blood NEGATIVE Ery/ul (0-5); Epithelial Cells RARE /HPF (FEW); Glucose NEGATIVE (NEGATIVE); Ketones TRACE (NEGATIVE); Leukocyte Esterase NEGATIVE (NEGATIVE); Mucus MANY /HPF (NEGATIVE); Nitrite NEGATIVE (NEGATIVE); Protein,Urine Dip 100 (Negative); Specific Gravity 1.034 (1.005-1.025); Urobilinogen 2 mg/dL (0-1)
[2020-10-02] MEDS ORDERED: Klor Con 10 MEQ PO ONE ×2 (18:25→18:30)
[2020-10-02 18:30] VITALS: BP 128/73; PULSE 89
[2020-10-02 18:50] VITALS: O2SAT 96
== END 2020-10-02 19:03 | disposition home or self-care (01) ==
LOC: ED 17:26
DX: R10.30 Lower abdominal pain, unspecified (principal); Z3A.17 17 weeks gestation of pregnancy; I10 Essential (primary) hypertension; E87.6 Hypokalemia
CPT/HCPCS: 36415; 80053; 81001; 82150; 83605; 83690; 85025; 87086; 99284; A9270-GY

== ENCOUNTER 2020-11-20 14:11 | Observation (INO) | payer BC, MEDICAID ==
[2020-11-20 15:09] LABS: Appearance CLOUDY (CLEAR); Bacteria MANY /HPF (NEGATIVE); Bilirubin SMALL (NEGATIVE); Blood NEGATIVE Ery/ul (0-5); Epithelial Cells FEW /HPF (FEW); Glucose NEGATIVE (NEGATIVE); Ketones TRACE (NEGATIVE); Leukocyte Esterase NEGATIVE (NEGATIVE); Mucus MANY /HPF (NEGATIVE); Nitrite NEGATIVE (NEGATIVE); Protein,Urine Dip 100 (Negative); Specific Gravity 1.032 (1.005-1.025); Urobilinogen 2 mg/dL (0-1)
--- NOTE | 2020-11-20 15:22 | XRAY ---
Indication: Right lower quadrant pain. Limited OB ultrasound performed. Comparison: October 06, 2020. Again there is a single viable intrauterine in breech presentation with heart rate 159 bpm and posterior placenta without abruption/previa. Cervical length is 4.4 cm.
[2020-11-20 15:26] LABS: Amphetamine,Urine NEGATIVE (NEGATIVE); Barbiturate,Urine NEGATIVE (NEGATIVE); Benzodiazepine,Urine NEGATIVE (NEGATIVE); Cocaine,Urine NEGATIVE (NEGATIVE); Methadone,Urine NEGATIVE (NEGATIVE); Opiate,Urine NEGATIVE (NEGATIVE); PCP,Urine NEGATIVE (NEGATIVE); THC,Urine NEGATIVE (NEGATIVE)
[2020-11-20] MEDS ORDERED: Lactated Ringers 1,000 ML IV ONE (15:58)
[2020-11-20] MEDS ORDERED: ROCEPHIN 1 Gm-D5w 50 ml Bag** 1 G/50 ML IVPB IV SCH (16:00)
[2020-11-20 16:46] LABS: Absolute Neutrophil Ct (ANC) 8.13 (1.4-6.9); BASOPHIL % 0.2 % (0.0-0.4); Basophil (Absolute #) 0.02 (0-0.4); Eosinophil % 0.9 % (0.00-5.0); Hematocrit 31.7 % (35-47); Hemoglobin 10.4 gm/dl (12.0-16.0); Lymphocyte (Absolute #) 1.99 (1.0-4.6); Lymphocytes % 18.6 % (24.0-44.0); Mean Cell Volume 87.3 fl (78-100); Mean Corpuscular Hemoglobin 28.7 pg (26-32); Mean Corpuscular Hgb Concent. 32.8 g/dl (32-36); Mean Platelet Volume 8.9 fl (7.5-11.0); Monocyte (Absolute #) 0.44 (0.0-1.3); Monocytes % 4.1 % (0.0-12.0); Neutrophil % 76.2 % (36.0-66.0); Platelet Count 301 K/mm3 (150-450); Red Blood Count 3.63 M/mm3 (4.1-5.4); Red Cell Distribution Width 14.9 % (11.5-14.0); White Blood Count 10.7 K/mm3 (4.0-10.5)
[2020-11-20 17:11] LABS: ALBUMIN 3.7 g/dL (3.5-5.0); ALKALINE PHOSPHATASE 83 U/L (38-126); ANION GAP 11.4 MEQ/L (5-15); BLOOD UREA NITROGEN 5 mg/dL (7-17); CHLORIDE 107 mmol/L (98-107); Calcium 9.1 mg/dL (8.4-10.2); Carbon Dioxide 20 mmol/L (22-30); Creatinine 1 0.39 mg/dL (0.52-1.04); EST GLOMERULAR FILTRATION RATE > 60.0 ML/MIN; Glucose 73 mg/dL (74-106); Potassium 3.3 mmol/L (3.5-5.1); SGOT/AST 40 U/L (14-36); SGPT/ALT 28 U/L (0-35); SODIUM 136 mmol/L (137-145); Total Protein 6.8 g/dL (6.3-8.2)
[2020-11-20 19:44] VITALS: PULSE 81
[2020-11-20 19:46] VITALS: BP 130/60
== END 2020-11-20 20:00 | disposition home or self-care (01) ==
LOC: OB 14:11 → UNDOADMOB 14:11
PROVIDERS: ADMIT Family Medicine; ATTEND Family Medicine
DX: Z34.82 Encounter for supervision of other normal pregnancy, second trimester (principal); Z3A.24 24 weeks gestation of pregnancy
CPT/HCPCS: 36415; 76815; 80053; 80307; 81001; 85025; 87086; G0378; J0696

== ENCOUNTER 2020-12-12 18:38 | Observation (INO) | payer BC, MEDICAID ==
[2020-12-12 21:03] LABS: Amourphous Crystal FEW /HPF (NEGATIVE); Appearance SLIGHTLY CLOUDY (CLEAR); Bacteria MODERATE /HPF (NEGATIVE); Bilirubin NEGATIVE (NEGATIVE); Blood NEGATIVE Ery/ul (0-5); Epithelial Cells RARE /HPF (FEW); Glucose NEGATIVE (NEGATIVE); Ketones NEGATIVE (NEGATIVE); Leukocyte Esterase NEGATIVE (NEGATIVE); Mucus SLIGHT /HPF (NEGATIVE); Nitrite NEGATIVE (NEGATIVE); Protein,Urine Dip NEGATIVE (Negative); RBC 0-2 /HPF (0-2); Specific Gravity 1.014 (1.005-1.025); Urobilinogen NEGATIVE mg/dL (0-1)
[2020-12-12 21:24] LABS: Amphetamine,Urine NEGATIVE (NEGATIVE); Barbiturate,Urine NEGATIVE (NEGATIVE); Benzodiazepine,Urine NEGATIVE (NEGATIVE); Cocaine,Urine NEGATIVE (NEGATIVE); Methadone,Urine NEGATIVE (NEGATIVE); Opiate,Urine NEGATIVE (NEGATIVE); PCP,Urine NEGATIVE (NEGATIVE); THC,Urine NEGATIVE (NEGATIVE)
[2020-12-13 01:17] VITALS: BP 117/56; PULSE 78; O2SAT 98
== END 2020-12-12 22:45 | disposition home or self-care (01) ==
LOC: OB 18:38
PROVIDERS: ADMIT Family Medicine; ATTEND Family Medicine
DX: Z34.02 Encounter for supervision of normal first pregnancy, second trimester (principal); Z3A.27 27 weeks gestation of pregnancy
CPT/HCPCS: 80307; 81001; 87086; G0378

== ENCOUNTER 2020-12-17 14:01 | Observation (INO) | payer BC, MEDICAID ==
[2020-12-17 15:16] VITALS: BP 123/79; PULSE 72
--- NOTE | 2020-12-17 16:24 | XRAY ---
Exam: OB biophysical profile with nonstress from 12/17/2020. Comparison: None. Indication: Supervision for normal . heart rate measured 145 bpm. The amniotic fluid index measured 10.18 cm. Biophysical profile consisting of breath breathing movements, gross body movements, tone, and qualitative amniotic fluid volume scored 6 points out of a maximum of 8 points. The score for breathing movements with 0 (less than 30 seconds of sustained breathing movements in 30 minutes observation). Impression: 1. OB biophysical profile score was 6 points out of a maximum of 8 points. See above.
== END 2020-12-17 16:35 | disposition home or self-care (01) ==
LOC: OB 14:01
PROVIDERS: ADMIT Family Medicine; ATTEND Family Medicine
DX: Z34.02 Encounter for supervision of normal first pregnancy, second trimester (principal); Z3A.25 25 weeks gestation of pregnancy
CPT/HCPCS: 59025; 76818; G0378

== ENCOUNTER 2021-01-05 11:52 | Observation (INO) | payer BC, MEDICAID ==
[2021-01-05 12:54] LABS: Appearance CLOUDY (CLEAR); Bacteria RARE /HPF (NEGATIVE); Bilirubin SMALL (NEGATIVE); Blood NEGATIVE Ery/ul (0-5); Epithelial Cells FEW /HPF (FEW); Glucose NEGATIVE (NEGATIVE); Ketones TRACE (NEGATIVE); Leukocyte Esterase NEGATIVE (NEGATIVE); Mucus MANY /HPF (NEGATIVE); Nitrite NEGATIVE (NEGATIVE); Protein,Urine Dip 100 (Negative); Specific Gravity 1.031 (1.005-1.025); Urobilinogen 2 mg/dL (0-1); WBC 26-50 /HPF (0-5)
[2021-01-05 12:59] LABS: Granular Casts 25-50 /LPF (NEGATIVE)
[2021-01-05 13:06] LABS: Amphetamine,Urine NEGATIVE (NEGATIVE); Barbiturate,Urine NEGATIVE (NEGATIVE); Benzodiazepine,Urine NEGATIVE (NEGATIVE); Cocaine,Urine NEGATIVE (NEGATIVE); Methadone,Urine NEGATIVE (NEGATIVE); Opiate,Urine NEGATIVE (NEGATIVE); PCP,Urine NEGATIVE (NEGATIVE); THC,Urine NEGATIVE (NEGATIVE)
[2021-01-05 13:58] LABS: Absolute Neutrophil Ct (ANC) 9.83 (1.4-6.9); BASOPHIL % 0.2 % (0.0-0.4); Basophil (Absolute #) 0.02 (0-0.4); Eosinophil % 0.7 % (0.00-5.0); Eosinophil (Absolute #) 0.09 (0-0.5); Hematocrit 30.5 % (35-47); Lymphocyte (Absolute #) 2.05 (1.0-4.6); Lymphocytes % 16.4 % (24.0-44.0); Mean Cell Volume 87.6 fl (78-100); Mean Corpuscular Hemoglobin 28.7 pg (26-32); Mean Corpuscular Hgb Concent. 32.8 g/dl (32-36); Mean Platelet Volume 9.1 fl (7.5-11.0); Monocyte (Absolute #) 0.54 (0.0-1.3); Monocytes % 4.3 % (0.0-12.0); Neutrophil % 78.4 % (36.0-66.0); Platelet Count 279 K/mm3 (150-450); Red Blood Count 3.48 M/mm3 (4.1-5.4); Red Cell Distribution Width 15.5 % (11.5-14.0); White Blood Count 12.5 K/mm3 (4.0-10.5)
[2021-01-05 14:10] LABS: ALBUMIN 3.7 g/dL (3.5-5.0); ALKALINE PHOSPHATASE 91 U/L (38-126); ANION GAP 13.3 MEQ/L (5-15); BLOOD UREA NITROGEN 10 mg/dL (7-17); CHLORIDE 104 mmol/L (98-107); Calcium 9.9 mg/dL (8.4-10.2); Carbon Dioxide 22 mmol/L (22-30); Creatinine 1 0.43 mg/dL (0.52-1.04); EST GLOMERULAR FILTRATION RATE > 60.0 ML/MIN; Glucose 106 mg/dL (74-106); Potassium 3.1 mmol/L (3.5-5.1); SGOT/AST 27 U/L (14-36); SGPT/ALT 27 U/L (0-35); SODIUM 136 mmol/L (137-145); Total Protein 6.3 g/dL (6.3-8.2)
--- NOTE | 2021-01-05 15:16 | XRAY ---
Indication: Bilateral flank pain. 32 weeks . Two-dimensional renal sonogram performed. Comparison: October 12, 2020. Again both kidneys demonstrate normal reniform shape with normal color perfusion. Right kidney measures 13.9 x 6.6 x 8.2 cm and the left measures 14.1 x 5.4 x 6.1 cm. Right kidney now demonstrates mild hydronephrosis presumably related to . Otherwise no focal solid/cystic renal mass. Cortical medullary differentiation preserved. Images of the minimally distended urinary bladder grossly unremarkable. Normal left ureteral jet. Right ureteral jet not seen within the allotted exam time. Post void demonstrates complete emptying of the urinary bladder. Impression: New mild right hydronephrosis presumed related to . Remaining renal sonogram negative.
--- NOTE | 2021-01-05 15:17 | XRAY ---
Indication: Bilateral flank pain. labor. Evaluate cervical length. 2-dimensional OB ultrasound performed. Comparison: October 27, 2020. Again there is a single viable intrauterine in cephalic presentation. heart rate 154 BPM. anatomy previously documented. Again posterior placenta without abruption/previa. Cervical length is 3.5 cm. BPD measures 7.86 cm corresponding to 31 weeks 4 days. HC measures 29.24 cm corresponding to 32 weeks 2 days. AC measures 27.54 cm corresponding to 31 weeks 4 days. FL measures 5.79 cm corresponding to 30 weeks 2 days. Estimated weight 3 lbs. 13 oz., +/-9 ounces. Approximately 52 percentile. MILANA is 10.7 cm. Impression: Again single viable intrauterine with mean gestational age 31 weeks 3 days. There has been progression of with fetus now measuring 8 days larger with respect to first exam August 13, 2020.
[2021-01-05 15:55] LABS: Creatinine, Urine Random 419.7 mg/dl
[2021-01-05] MEDS ORDERED: TYLENOL 325 MG PO PRN (16:40)
[2021-01-05] MEDS ORDERED: XYLOCAINE 1% HCL 20 ML MDV IJ PRN (16:51)
[2021-01-05] MEDS ORDERED: Rocephin 1000 MG INJ IM ONE (17:00)
[2021-01-05] MEDS ORDERED: Lactated Ringers 1,000 ML IV ONE ×2 (17:27→20:42)
[2021-01-05 17:34] LABS: CHLAMYDIA DNA NOT DETECTED (NEGATIVE); GC DNA Probe NOT DETECTED (NEGATIVE)
[2021-01-05] MEDS: Trandate 100 MG PO SCH (20:41)
[2021-01-05] MEDS: Adalat CC 30 MG TABLET PO SCH (20:41)
[2021-01-05] MEDS: ROCEPHIN 1 Gm-D5w 50 ml Bag** 1 G/50 ML IVPB IV SCH (20:43)
[2021-01-05] MEDS: Lactated Ringers 1,000 ML IV SCH (20:43)
[2021-01-06] MEDS ORDERED: Lactated Ringers 1,000 ML IV ONE (04:24)
[2021-01-06] MEDS: Lactated Ringers 1,000 ML IV SCH (04:25)
[2021-01-06 05:11] LABS: Absolute Neutrophil Ct (ANC) 8.04 (1.4-6.9); BASOPHIL % 0.2 % (0.0-0.4); Basophil (Absolute #) 0.02 (0-0.4); Eosinophil (Absolute #) 0.11 (0-0.5); Hematocrit 30.8 % (35-47); Hemoglobin 9.9 gm/dl (12.0-16.0); Lymphocyte (Absolute #) 2.45 (1.0-4.6); Lymphocytes % 22.1 % (24.0-44.0); Mean Corpuscular Hemoglobin 28.3 pg (26-32); Mean Corpuscular Hgb Concent. 32.1 g/dl (32-36); Mean Platelet Volume 9.2 fl (7.5-11.0); Monocyte (Absolute #) 0.47 (0.0-1.3); Monocytes % 4.2 % (0.0-12.0); Neutrophil % 72.5 % (36.0-66.0); Platelet Count 277 K/mm3 (150-450); Red Cell Distribution Width 15.8 % (11.5-14.0); White Blood Count 11.1 K/mm3 (4.0-10.5)
[2021-01-06 05:17] LABS: ALBUMIN 3.4 g/dL (3.5-5.0); ALKALINE PHOSPHATASE 95 U/L (38-126); ANION GAP 12.2 MEQ/L (5-15); BLOOD UREA NITROGEN 6 mg/dL (7-17); CHLORIDE 105 mmol/L (98-107); Calcium 8.8 mg/dL (8.4-10.2); Carbon Dioxide 22 mmol/L (22-30); Creatinine 1 0.35 mg/dL (0.52-1.04); EST GLOMERULAR FILTRATION RATE > 60.0 ML/MIN; Glucose 90 mg/dL (74-106); SGOT/AST 25 U/L (14-36); SGPT/ALT 25 U/L (0-35); SODIUM 135 mmol/L (137-145); Total Protein 6.2 g/dL (6.3-8.2)
[2021-01-06] MEDS ORDERED: Sodium Chloride 0.9% W/ 20 mEq KCl/LITER 1,000 ML IV SCH (08:45)
--- NOTE | 2021-01-06 08:47 | PCM.DS ---
Discharge Summary Date of Admission: 01/05/21 11:52 Admitting Physician: RIKI ARORA Primary Care Provider: SLOANE TAYLOR Allergies Allergies No Known Drug Allergies Allergy (Verified 12/17/20 14:52) Hospital Summary - Hospital Course Hospital Course: Pt is 25 yo at 31w 6d, came in yesterday for abd pain. Found to have nl u/s, good FHT. Mildly elevated WBC count and generalized TTP. Found to have UTI; ucx pending and started on IV rocephin. This morning she is denying abd pain but c/o some "discomfort." Thinks she may want to eat breakfast. On exam, she is only mildly tender in suprapubic and periumbilical areas, less than yesterday. Her potassium was 3.0 this morning; will replete that and recheck at noon. Rocephin dose #2 at noon, then home on keflex to finish 7d. She is to return to ER if the abd pain returns. - Vitals & Intake/Output Vital Signs: Vital Signs Temperature 98.3 F 01/06/21 04:00 Pulse Rate 78 01/06/21 04:00 Respiratory Rate 18 01/06/21 04:00 Blood Pressure 128/70 01/06/21 04:00 O2 Sat by Pulse Oximetry Intake & Output: Intake & Output 01/03/21 01/04/21 01/05/21 01/06/21 11:59 11:59 11:59 11:59 Intake Total 1200 Balance 1200 Weight 150.139 kg - Lab Result Diagrams: 01/06/21 04:57 01/06/21 04:57 Lab Results-Last 24 Hrs: Lab Results-Last 24 Hours 01/05/21 01/05/21 01/05/21 Range/Units 12:05 12:30 12:30 WBC (4.0-10.5) K/mm3 RBC (4.1-5.4) M/mm3 Hgb (12.0-16.0) gm/dl Hct (35-47) % MCV (78-100) fl MCH (26-32) pg MCHC (32-36) g/dl RDW (11.5-14.0) % Plt Count (150-450) K/mm3 MPV (7.5-11.0) fl Gran % (36.0-66.0) % Eos # (Auto) (0-0.5) Absolute Lymphs (auto) (1.0-4.6) Absolute Monos (auto) (0.0-1.3) Lymphocytes % (24.0-44.0) % Monocytes % (0.0-12.0) % Eosinophils % (0.00-5.0) % Basophils % (0.0-0.4) % Absolute Granulocytes (1.4-6.9) Basophils # (0-0.4) Sodium (137-145) mmol/L Potassium (3.5-5.1) mmol/L Chloride (98-107) mmol/L Carbon Dioxide (22-30) mmol/L Anion Gap (5-15) MEQ/L BUN (7-17) mg/dL Creatinine (0.52-1.04) mg/dL Estimated GFR ML/MIN Glucose (74-106) mg/dL Uric Acid (2.6-6.0) mg/dL Calcium (8.4-10.2) mg/dL Total Bilirubin (0.2-1.3) mg/dL AST (14-36) U/L ALT (0-35) U/L Alkaline Phosphatase (38-126) U/L Serum Total Protein (6.3-8.2) g/dL Albumin (3.5-5.0) g/dL Urine Color ANAM (YELLOW) Urine Appearance CLOUDY (CLEAR) Urine pH 5.0 (5-6) Ur Specific [place] 1.031 (1.005-1.025) Urine Protein 100 (Negative) Urine Ketones TRACE (NEGATIVE) Urine Blood NEGATIVE (0-5) Raghav/ul Urine Nitrite NEGATIVE (NEGATIVE) Urine Bilirubin SMALL (NEGATIVE) Urine Urobilinogen 2 (0-1) mg/dL Ur Leukocyte Esterase NEGATIVE (NEGATIVE) Urine WBC (Auto) 26-50 (0-5) /HPF Urine RBC (Auto) 3-5 (0-2) /HPF U Epithel Cells (Auto) FEW (FEW) /HPF Urine Bacteria (Auto) RARE (NEGATIVE) /HPF Calcium Oxalate Crystal 11-25 (NEGATIVE) /HPF Granular Casts (Auto) 25-50 (NEGATIVE) /LPF Urine Mucus (Auto) MANY (NEGATIVE) /HPF Urine Culture Reflexed YES (NO) Ur Random Creatinine mg/dl U Random Total Protein (<12) mg/dl U Sunset Prot/Creat Ratio (0.00-0.15) mg/mg Urine Glucose NEGATIVE (NEGATIVE) mg/dL POC Amnio Swab Test Negative Urine Opiates Level NEGATIVE (NEGATIVE) Ur Methadone NEGATIVE (NEGATIVE) Urine Barbiturates NEGATIVE (NEGATIVE) Ur Phencyclidine (PCP) NEGATIVE (NEGATIVE) Urine Amphetamine NEGATIVE (NEGATIVE) U Benzodiazepine Level NEGATIVE (NEGATIVE) Urine Cocaine NEGATIVE (NEGATIVE) Urine Marijuana (THC) NEGATIVE (NEGATIVE) Chlamydia DNA Probe (NEGATIVE) N.gonorrhoeae DNA Probe (NEGATIVE) 01/05/21 01/05/21 01/05/21 Range/Units 12:45 13:35 13:54 WBC 12.5 H (4.0-10.5) K/mm3 RBC 3.48 L (4.1-5.4) M/mm3 Hgb 10.0 L (12.0-16.0) gm/dl Hct 30.5 L (35-47) % MCV 87.6 (78-100) fl MCH 28.7 (26-32) pg MCHC 32.8 (32-36) g/dl RDW 15.5 H (11.5-14.0) % Plt Count 279 (150-450) K/mm3 MPV 9.1 (7.5-11.0) fl Gran % 78.4 H (36.0-66.0) % Eos # (Auto) 0.09 (0-0.5) Absolute Lymphs (auto) 2.05 (1.0-4.6) Absolute Monos (auto) 0.54 (0.0-1.3) Lymphocytes % 16.4 L (24.0-44.0) % Monocytes % 4.3 (0.0-12.0) % Eosinophils % 0.7 (0.00-5.0) % Basophils % 0.2 (0.0-0.4) % Absolute Granulocytes 9.83 H (1.4-6.9) Basophils # 0.02 (0-0.4) Sodium (137-145) mmol/L Potassium (3.5-5.1) mmol/L Chloride (98-107) mmol/L Carbon Dioxide (22-30) mmol/L Anion Gap (5-15) MEQ/L BUN (7-17) mg/dL Creatinine (0.52-1.04) mg/dL Estimated GFR ML/MIN Glucose (74-106) mg/dL Uric Acid 4.2 (2.6-6.0) mg/dL Calcium (8.4-10.2) mg/dL Total Bilirubin (0.2-1.3) mg/dL AST (14-36) U/L ALT (0-35) U/L Alkaline Phosphatase (38-126) U/L Serum Total Protein (6.3-8.2) g/dL Albumin (3.5-5.0) g/dL Urine Color (YELLOW) Urine Appearance (CLEAR) Urine pH (5-6) Ur Specific [place] (1.005-1.025) Urine Protein (Negative) Urine Ketones (NEGATIVE) Urine Blood (0-5) Raghav/ul Urine Nitrite (NEGATIVE) Urine Bilirubin (NEGATIVE) Urine Urobilinogen (0-1) mg/dL Ur Leukocyte Esterase (NEGATIVE) Urine WBC (Auto) (0-5) /HPF Urine RBC (Auto) (0-2) /HPF U Epithel Cells (Auto) (FEW) /HPF Urine Bacteria (Auto) (NEGATIVE) /HPF Calcium Oxalate Crystal (NEGATIVE) /HPF Granular Casts (Auto) (NEGATIVE) /LPF Urine Mucus (Auto) (NEGATIVE) /HPF Urine Culture Reflexed (NO) Ur Random Creatinine mg/dl U Random Total Protein (<12) mg/dl U Sunset Prot/Creat Ratio (0.00-0.15) mg/mg Urine Glucose (NEGATIVE) mg/dL POC Amnio Swab Test Urine Opiates Level (NEGATIVE) Ur Methadone (NEGATIVE) Urine Barbiturates (NEGATIVE) Ur Phencyclidine (PCP) (NEGATIVE) Urine Amphetamine (NEGATIVE) U Benzodiazepine Level (NEGATIVE) Urine Cocaine (NEGATIVE) Urine Marijuana (THC) (NEGATIVE) Chlamydia DNA Probe NOT DETECTED (NEGATIVE) N.gonorrhoeae DNA Probe NOT DETECTED (NEGATIVE) 01/05/21 01/05/21 01/06/21 Range/Units 13:54 14:16 04:57 WBC 11.1 H (4.0-10.5) K/mm3 RBC 3.50 L (4.1-5.4) M/mm3 Hgb 9.9 L (12.0-16.0) gm/dl Hct 30.8 L (35-47) % MCV 88.0 (78-100) fl MCH 28.3 (26-32) pg MCHC 32.1 (32-36) g/dl RDW 15.8 H (11.5-14.0) % Plt Count 277 (150-450) K/mm3 MPV 9.2 (7.5-11.0) fl Gran % 72.5 H (36.0-66.0) % Eos # (Auto) 0.11 (0-0.5) Absolute Lymphs (auto) 2.45 (1.0-4.6) Absolute Monos (auto) 0.47 (0.0-1.3) Lymphocytes % 22.1 L (24.0-44.0) % Monocytes % 4.2 (0.0-12.0) % Eosinophils % 1.0 (0.00-5.0) % Basophils % 0.2 (0.0-0.4) % Absolute Granulocytes 8.04 H (1.4-6.9) Basophils # 0.02 (0-0.4) Sodium 136 L (137-145) mmol/L Potassium 3.1 L (3.5-5.1) mmol/L Chloride 104 (98-107) mmol/L Carbon Dioxide 22 (22-30) mmol/L Anion Gap 13.3 (5-15) MEQ/L BUN 10 (7-17) mg/dL Creatinine 0.43 L (0.52-1.04) mg/dL Estimated GFR > 60.0 ML/MIN Glucose 106 (74-106) mg/dL Uric Acid (2.6-6.0) mg/dL Calcium 9.9 (8.4-10.2) mg/dL Total Bilirubin 0.50 (0.2-1.3) mg/dL AST 27 (14-36) U/L ALT 27 (0-35) U/L Alkaline Phosphatase 91 (38-126) U/L Serum Total Protein 6.3 (6.3-8.2) g/dL Albumin 3.7 (3.5-5.0) g/dL Urine Color (YELLOW) Urine Appearance (CLEAR) Urine pH (5-6) Ur Specific [place] (1.005-1.025) Urine Protein (Negative) Urine Ketones (NEGATIVE) Urine Blood (0-5) Raghav/ul Urine Nitrite (NEGATIVE) Urine Bilirubin (NEGATIVE) Urine Urobilinogen (0-1) mg/dL Ur Leukocyte Esterase (NEGATIVE) Urine WBC (Auto) (0-5) /HPF Urine RBC (Auto) (0-2) /HPF U Epithel Cells (Auto) (FEW) /HPF Urine Bacteria (Auto) (NEGATIVE) /HPF Calcium Oxalate Crystal (NEGATIVE) /HPF Granular Casts (Auto) (NEGATIVE) /LPF Urine Mucus (Auto) (NEGATIVE) /HPF Urine Culture Reflexed (NO) Ur Random Creatinine 419.7 mg/dl U Random Total Protein 18.0 (<12) mg/dl U Sunset Prot/Creat Ratio 0.04 (0.00-0.15) mg/mg Urine Glucose (NEGATIVE) mg/dL POC Amnio Swab Test Urine Opiates Level (NEGATIVE) Ur Methadone (NEGATIVE) Urine Barbiturates (NEGATIVE) Ur Phencyclidine (PCP) (NEGATIVE) Urine Amphetamine (NEGATIVE) U Benzodiazepine Level (NEGATIVE) Urine Cocaine (NEGATIVE) Urine Marijuana (THC) (NEGATIVE) Chlamydia DNA Probe (NEGATIVE) N.gonorrhoeae DNA Probe (NEGATIVE) 01/06/21 Range/Units 04:57 WBC (4.0-10.5) K/mm3 RBC (4.1-5.4) M/mm3 Hgb (12.0-16.0) gm/dl Hct (35-47) % MCV (78-100) fl MCH (26-32) pg MCHC (32-36) g/dl RDW (11.5-14.0) % Plt Count (150-450) K/mm3 MPV (7.5-11.0) fl Gran % (36.0-66.0) % Eos # (Auto) (0-0.5) Absolute Lymphs (auto) (1.0-4.6) Absolute Monos (auto) (0.0-1.3) Lymphocytes % (24.0-44.0) % Monocytes % (0.0-12.0) % Eosinophils % (0.00-5.0) % Basophils % (0.0-0.4) % Absolute Granulocytes (1.4-6.9) Basophils # (0-0.4) Sodium 135 L (137-145) mmol/L Potassium 3.0 L* (3.5-5.1) mmol/L Chloride 105 (98-107) mmol/L Carbon Dioxide 22 (22-30) mmol/L Anion Gap 12.2 (5-15) MEQ/L BUN 6 L (7-17) mg/dL Creatinine 0.35 L (0.52-1.04) mg/dL Estimated GFR > 60.0 ML/MIN Glucose 90 (74-106) mg/dL Uric Acid (2.6-6.0) mg/dL Calcium 8.8 (8.4-10.2) mg/dL Total Bilirubin 0.60 (0.2-1.3) mg/dL AST 25 (14-36) U/L ALT 25 (0-35) U/L Alkaline Phosphatase 95 (38-126) U/L Serum Total Protein 6.2 L (6.3-8.2) g/dL Albumin 3.4 L (3.5-5.0) g/dL Urine Color (YELLOW) Urine Appearance (CLEAR) Urine pH (5-6) Ur Specific [place] (1.005-1.025) Urine Protein (Negative) Urine Ketones (NEGATIVE) Urine Blood (0-5) Raghav/ul Urine Nitrite (NEGATIVE) Urine Bilirubin (NEGATIVE) Urine Urobilinogen (0-1) mg/dL Ur Leukocyte Esterase (NEGATIVE) Urine WBC (Auto) (0-5) /HPF Urine RBC (Auto) (0-2) /HPF U Epithel Cells (Auto) (FEW) /HPF Urine Bacteria (Auto) (NEGATIVE) /HPF Calcium Oxalate Crystal (NEGATIVE) /HPF Granular Casts (Auto) (NEGATIVE) /LPF Urine Mucus (Auto) (NEGATIVE) /HPF Urine Culture Reflexed (NO) Ur Random Creatinine mg/dl U Random Total Protein (<12) mg/dl U Sunset Prot/Creat Ratio (0.00-0.15) mg/mg Urine Glucose (NEGATIVE) mg/dL POC Amnio Swab Test Urine Opiates Level (NEGATIVE) Ur Methadone (NEGATIVE) Urine Barbiturates (NEGATIVE) Ur Phencyclidine (PCP) (NEGATIVE) Urine Amphetamine (NEGATIVE) U Benzodiazepine Level (NEGATIVE) Urine Cocaine (NEGATIVE) Urine Marijuana (THC) (NEGATIVE) Chlamydia DNA Probe (NEGATIVE) N.gonorrhoeae DNA Probe (NEGATIVE) Micro Results-Entire Visit: Microbiology 01/05/21 12:30 Urine Culture - Preliminary Clean Catch Midstream NO GROWTH TO DATE - Radiology Exams Ordered Rad Exams-Entire Visit: Radiology Procedures Category Date Time Status OB >14 WKS 1st GESTATION [US] Stat Exams 01/05/21 14:40 Completed Ultrasound Kidney [KIDNEY] [US] Stat Exams 01/05/21 14:40 Completed Discharge Exam General Appearance: no apparent distress, obese Neurologic Exam: oriented x 3, cooperative Eye Exam: eyes nml inspection Ears, Nose, Throat Exam: moist mucous membranes Respiratory Exam: normal breath sounds, lungs clear, No crackles/rales, No rhonchi, No wheezing Cardiovascular Exam: regular rate/rhythm, normal heart sounds, No murmur Gastrointestinal/Abdomen Exam: soft, tenderness (suprapubic and periumbilical), other (gravid), No normal bowel sounds (hypoactive but present), No guarding, No rebound Back Exam: normal inspection, No rash Skin Exam: normal color, warm, dry, No rash Final Diagnosis/Problem List - Final Discharge Diagnosis/Problem (1) Abdominal pain during in third trimester Current Visit: Yes Status: Acute Assessment & Plan: I think d/t UTI. Much improved. If returns, or she has other sx, return to [facility]. Intermittent monitoring with good FHT here. Code(s): O26.893 - OTH RELATED CONDITIONS, THIRD TRIMESTER; R10.9 - UNSPECIFIED ABDOMINAL PAIN (2) UTI (urinary tract infection) during Current Visit: No Status: Acute Assessment & Plan: home after Rocephin #2 today. Keflex at home to finish 7d. F/u with Dr. Guzman next week. Code(s): O23.40 - UNSP INFECTION OF URINARY TRACT IN , UNSP TRIMESTER - Discharge Disposition: Home, Self-Care Condition: Stable Prescriptions: New Cephalexin Mh 500 mg [Keflex 500 mg] 500 mg PO QID #20 capsule Continue NIFEdipine [Nifedipine ER] 30 mg PO BID Labetalol HCl 100 mg [Trandate 100 MG] 1 ea PO TID Metoclopramide HCl [Reglan] 5 mg PO BID Pyridoxine HCl 100 mg [Vitamin B-6 (Pyridoxine) 100 MG] 100 mg PO DAILY Vits W-Ca,Fe,FA(<1Mg) [] 1 each PO DAILY Ferrous Sulfate [Iron] 650 mg PO DAILY Docusate Sodium [Stool Softener] 50 mg PO DAILY Aspirin EC 81 mg [Ecotrin 81 mg] 81 mg PO DAILY Ascorbic Acid 500 mg [Vitamin C 500 MG] 1,000 mg PO DAILY Follow up with: SLOANE TAYLOR [Primary Care Provider] -
[2021-01-06] MEDS: Adalat CC 30 MG TABLET PO SCH (09:12)
[2021-01-06] MEDS ORDERED: Klor Con 10 MEQ PO ONE (10:00)
[2021-01-06] MEDS: Trandate 100 MG PO SCH (11:59)
[2021-01-06] MEDS: ROCEPHIN 1 Gm-D5w 50 ml Bag** 1 G/50 ML IVPB IV SCH (12:00)
[2021-01-06 13:38] VITALS: BP 127/58; PULSE 81; O2SAT 97
[2021-01-06 14:40] LABS: ANION GAP 14.2 MEQ/L (5-15); BLOOD UREA NITROGEN 5 mg/dL (7-17); CHLORIDE 106 mmol/L (98-107); Calcium 8.7 mg/dL (8.4-10.2); Carbon Dioxide 22 mmol/L (22-30); Creatinine 1 0.36 mg/dL (0.52-1.04); EST GLOMERULAR FILTRATION RATE > 60.0 ML/MIN; Glucose 137 mg/dL (74-106); MAGNESIUM 1.5 mg/dL (1.6-2.3); Potassium 3.3 mmol/L (3.5-5.1); SODIUM 139 mmol/L (137-145)
== END 2021-01-06 14:00 | disposition home or self-care (01) ==
LOC: OB 11:52
PROVIDERS: ADMIT Family Medicine; ATTEND Family Medicine
DX: O26.893 Other specified pregnancy related conditions, third trimester (principal); R10.9 Unspecified abdominal pain; O23.43 Unspecified infection of urinary tract in pregnancy, third trimester; Z3A.31 31 weeks gestation of pregnancy; I10 Essential (primary) hypertension; Z79.899 Other long term (current) drug therapy; N13.30 Unspecified hydronephrosis
CPT/HCPCS: 36415; 76770; 76805; 80048; 80053; 80307; 81001; 82570; 83735; 84112; 84156; 84550; 85025; 87086; 87491; 87591; G0378; J0696; A9270-GY

== ENCOUNTER 2021-01-14 13:31 | Observation (INO) | payer BC, MEDICAID ==
--- NOTE | 2021-01-14 15:12 | XRAY ---
Indication: Routine care. Ultrasound biophysical profile exam performed. Comparison: December 17, 2020 biophysical profile score 6 out of 8. Again single viable intrauterine with heart rate 150 BPM. Four-quadrant MILANA is 13.8 cm, largest pocket 4.8 cm. 2 points given for breathing, movements, tone, and qualitative amniotic fluid volume. Impression: Total biophysical profile score is now 8 out of 8.
[2021-01-14 15:14] VITALS: BP 129/81; PULSE 73
== END 2021-01-14 15:15 | disposition home or self-care (01) ==
LOC: OB 13:31
PROVIDERS: ADMIT Family Medicine; ATTEND Family Medicine
DX: Z34.03 Encounter for supervision of normal first pregnancy, third trimester (principal); Z3A.32 32 weeks gestation of pregnancy
CPT/HCPCS: 59025; 76818; G0378

== ENCOUNTER 2021-01-22 13:33 | Observation (INO) | payer BC, MEDICAID ==
--- NOTE | 2021-01-22 14:32 | XRAY ---
Indication: Routine care. Ultrasound biophysical profile exam performed. Comparison: January 14, 2021 Again single viable intrauterine in cephalic presentation with heart rate 152 bpm. 4 quadrant MILANA is 13.3 cm, largest pocket 3.9 cm. 2 points given for breathing, movements, tone, and qualitative amniotic fluid volume. Impression: Total biophysical profile score is again 8 out of 8.
[2021-01-22 14:36] VITALS: BP 134/65; PULSE 76; O2SAT 98
== END 2021-01-22 15:05 | disposition home or self-care (01) ==
LOC: RAD 13:33 → EDSTATUS 13:35 → OB 13:36
PROVIDERS: ADMIT Family Medicine; ATTEND Family Medicine
DX: O24.419 Gestational diabetes mellitus in pregnancy, unspecified control (principal); Z3A.32 32 weeks gestation of pregnancy
CPT/HCPCS: 59025; 76818; G0378

== ENCOUNTER 2021-01-29 10:19 | Observation (INO) | payer BC, MEDICAID ==
[2021-01-29 19:37] VITALS: BP 136/66; PULSE 73; O2SAT 96
--- NOTE | 2021-01-30 20:42 | XRAY ---
Exam: OB biophysical profile with nonstress from 01/29/2021. Comparison: OB biophysical profile with nonstress from 24/09/2020. Indication: Routine care. Findings: A single live intrauterine fetus is seen in the cephalic lie. The heart rate measured 133 bpm. The amniotic fluid index measured 13.35 cm (previously 13.3 cm) with the largest vertical pocket measuring 3.9 cm in AP dimension. Biophysical profile score was 6 points out of a maximum of 8 points, with a score of 0 points for movements, i.e. 2 or less gross body movements in 30 minutes of observation. The other parameters of breathing movements, tone, and qualitative amniotic fluid scored 2 points out of a possible 2 points for each category. Impression: 1. Biophysical profile score is 6 points out of a maximum of 8 points, previously 8 points on 01/22/2021. 2. The fetus is in cephalic lie with the heart rate of 133 bpm.
== END 2021-01-29 16:30 | disposition home or self-care (01) ==
LOC: OB 14:06
PROVIDERS: ADMIT Family Medicine; ATTEND Family Medicine
DX: Z34.03 Encounter for supervision of normal first pregnancy, third trimester (principal); Z3A.34 34 weeks gestation of pregnancy
CPT/HCPCS: 59025; 76818; G0378

== ENCOUNTER 2021-02-05 13:39 | Observation (INO) | payer BC, MEDICAID ==
[2021-02-05 14:48] VITALS: PULSE 73
[2021-02-05 15:09] VITALS: BP 138/83
--- NOTE | 2021-02-05 15:11 | XRAY ---
Indication: Third trimester . History of hypertension. Ultrasound biophysical profile study performed and compared to January 29, 2021. Biophysical profile score then was 6 out of 8. Again there is a single viable intrauterine with heart rate 161 BPM. Four-quadrant MILANA is 14.6 cm, largest pocket 4.5 cm. 2 points given for breathing, movements, tone, and qualitative amniotic fluid volume. Impression: Total biophysical profile score is now 8 out of 8.
== END 2021-02-05 15:05 | disposition home or self-care (01) ==
LOC: OB 13:39
PROVIDERS: ADMIT Family Medicine; ATTEND Family Medicine
DX: O24.419 Gestational diabetes mellitus in pregnancy, unspecified control (principal); Z3A.35 35 weeks gestation of pregnancy
CPT/HCPCS: 59025; 76819; G0378

== ENCOUNTER 2021-02-12 13:48 | Observation (INO) | payer BC, MEDICAID ==
[2021-02-12 15:01] VITALS: BP 134/74; PULSE 92; O2SAT 97
== END 2021-02-12 15:29 | disposition home or self-care (01) ==
LOC: OB 14:42
PROVIDERS: ADMIT Family Medicine; ATTEND Family Medicine
DX: O24.419 Gestational diabetes mellitus in pregnancy, unspecified control (principal); Z3A.36 36 weeks gestation of pregnancy
CPT/HCPCS: 59025; G0378

== ENCOUNTER 2021-02-13 19:15 | Observation (INO) | payer BC, MEDICAID ==
[2021-02-13 20:26] LABS: Appearance CLOUDY (CLEAR); Bacteria MANY /HPF (NEGATIVE); Bilirubin NEGATIVE (NEGATIVE); Blood NEGATIVE Ery/ul (0-5); Calcium Oxalate Crystals 26-50 /HPF (NEGATIVE); Epithelial Cells MODERATE /HPF (FEW); Glucose NEGATIVE (NEGATIVE); Ketones NEGATIVE (NEGATIVE); Leukocyte Esterase SMALL (NEGATIVE); Mucus MANY /HPF (NEGATIVE); Nitrite NEGATIVE (NEGATIVE); Protein,Urine Dip 30 (Negative); Specific Gravity 1.024 (1.005-1.025); Urobilinogen 2 mg/dL (0-1)
[2021-02-13 20:37] LABS: Amphetamine,Urine NEGATIVE (NEGATIVE); Barbiturate,Urine NEGATIVE (NEGATIVE); Benzodiazepine,Urine NEGATIVE (NEGATIVE); Cocaine,Urine NEGATIVE (NEGATIVE); Methadone,Urine NEGATIVE (NEGATIVE); Opiate,Urine NEGATIVE (NEGATIVE); PCP,Urine NEGATIVE (NEGATIVE); THC,Urine NEGATIVE (NEGATIVE)
[2021-02-13] MEDS ORDERED: KEFLEX 500 MG PO ONE (21:55)
[2021-02-13] MEDS ORDERED: KEFLEX 500 MG ONE ×2 (21:59→22:23)
[2021-02-13 22:55] VITALS: BP 134/75; PULSE 80; O2SAT 98
[2021-02-14] MEDS ORDERED: KEFLEX 500 MG PO ONE (04:00)
== END 2021-02-13 22:29 | disposition home or self-care (01) ==
LOC: OB 19:15
PROVIDERS: ADMIT Family Medicine; ATTEND Family Medicine
DX: Z34.03 Encounter for supervision of normal first pregnancy, third trimester (principal); Z3A.36 36 weeks gestation of pregnancy
CPT/HCPCS: 80307; 81001; 87086; G0378; A9270-GY

== ENCOUNTER 2021-02-16 15:42 | Observation (INO) | payer BC, MEDICAID ==
[2021-02-16 16:34] VITALS: BP 140/85; PULSE 69; O2SAT 93
[2021-02-16 16:37] LABS: Absolute Neutrophil Ct (ANC) 10.41 (1.4-6.9); BASOPHIL % 0.1 % (0.0-0.4); Basophil (Absolute #) 0.01 (0-0.4); Eosinophil % 0.8 % (0.00-5.0); Eosinophil (Absolute #) 0.11 (0-0.5); Hematocrit 34.1 % (35-47); Hemoglobin 11.1 gm/dl (12.0-16.0); Lymphocyte (Absolute #) 2.08 (1.0-4.6); Lymphocytes % 15.7 % (24.0-44.0); Mean Cell Volume 88.6 fl (78-100); Mean Corpuscular Hemoglobin 28.8 pg (26-32); Mean Corpuscular Hgb Concent. 32.6 g/dl (32-36); Mean Platelet Volume 8.9 fl (7.5-11.0); Monocyte (Absolute #) 0.64 (0.0-1.3); Monocytes % 4.8 % (0.0-12.0); Neutrophil % 78.6 % (36.0-66.0); Platelet Count 312 K/mm3 (150-450); Red Blood Count 3.85 M/mm3 (4.1-5.4); Red Cell Distribution Width 16.1 % (11.5-14.0); White Blood Count 13.3 K/mm3 (4.0-10.5)
[2021-02-16 16:56] LABS: ALBUMIN 3.7 g/dL (3.5-5.0); ALKALINE PHOSPHATASE 136 U/L (38-126); ANION GAP 15.2 MEQ/L (5-15); BLOOD UREA NITROGEN 7 mg/dL (7-17); CHLORIDE 105 mmol/L (98-107); Calcium 9.4 mg/dL (8.4-10.2); Carbon Dioxide 21 mmol/L (22-30); Creatinine 1 0.42 mg/dL (0.52-1.04); EST GLOMERULAR FILTRATION RATE > 60.0 ML/MIN; Glucose 93 mg/dL (74-106); Potassium 4.1 mmol/L (3.5-5.1); SGOT/AST 30 U/L (14-36); SGPT/ALT 23 U/L (0-35); SODIUM 137 mmol/L (137-145); Uric Acid 4.7 mg/dL (2.6-6.0)
[2021-02-16 16:58] LABS: Creatinine, Urine Random 230.7 mg/dl
--- NOTE | 2021-02-17 13:28 | XRAY ---
Exam: OB biophysical profile with nonstress from 02/16/2021. Comparison: OB biophysical profile from 02/12/2021 Indication: well-being; third trimester . Findings: The fetus scored 0 points for breathing movements (i.e. less than 30 seconds of breathing movements in a 30 minute observation period). However, the fetus scored 2 points out of a possible 2 points for gross body movements, tone, and qualitative amniotic fluid volume. The fetus is in cephalic lie. heart rate measured 144 bpm. Amniotic fluid alignment is given as 11.64 cm with the largest pocket measuring 5.60 cm. Impression: 1. Total biophysical profile score is 6 points out of a possible 8 points. This is the same as that noted on 02/12/2021.
--- NOTE | 2021-02-17 13:48 | XRAY ---
Exam: OB ultrasound follow-up for fetus from 02/16/2021. Comparison: OB ultrasound greater than 14 weeks from 01/05/2021. Indication: Supervision of normal . Findings: A single live intrauterine fetus is seen in the cephalic lie. The placenta is posterior. There is a normal amount of amniotic fluid with the amniotic fluid index measuring 14.0 cm, previously 10.8 cm. The heart measures 147 bpm. biometry: The biparietal diameter measures 9.35 cm consistent with a gestational age of 38 weeks, 0 days. The head circumference measures 32.62 cm consistent with a gestational age is 37 weeks, 0 days. The abdominal circumference measures 31.62 cm consistent with a gestational age of 35 weeks, 4 days. The femur length measures 7.19 cm consistent with a gestational age of 36 weeks, 6 days. The average gestational age based on all of the above measurements is 36 weeks, 6 days plus or -2 weeks, 4 days yielding an estimated due date of 03/10/2021, which is in excellent accordance with the gestational age by dates (also 03/10/2021). Estimated weight is 2903 g plus or -435.47 g (6 lbs. 6 oz.+ or -15 ounces) placing the fetus in the 40.2 percentile. The amniotic fluid index measures 14.00 cm which is normal. All size ratios are within normal limits. The nuclear medicine pet ct technologist took some color flow images where she noticed a nuchal cord around the neck. In addition, the renal pelvi are slightly prominent. However, AP diameter on 1 side is about 3.7 mm and on the other side about 3.6 mm. This is not dilated for a third trimester . The urinary bladder did appear somewhat prominent throughout the course of this study. A full detailed anatomy scan was not performed. Impression: 1. 36 week, 6 day single live intrauterine fetus in the cephalic lie with a heart rate of 147 bpm. Estimated due date is 03/10/2021 which is in good agreement with the gestational age by dates (also 03/10/2021). 2. The placenta is posterior. 3. Amniotic fluid index measures 14.0 cm which is unremarkable. 4. Incidentally, with color blood flow imaging, there appears to be a nuchal cord around the neck. Clinical correlation is recommended.
== END 2021-02-16 17:50 | disposition home or self-care (01) ==
LOC: RAD 15:42 → OB 15:43
PROVIDERS: ADMIT Family Medicine; ATTEND Family Medicine
DX: O24.419 Gestational diabetes mellitus in pregnancy, unspecified control (principal); Z3A.36 36 weeks gestation of pregnancy
CPT/HCPCS: 36415; 59025; 76816; 76818; 80053; 82570; 84156; 84550; 85025; G0378

== ENCOUNTER 2021-02-19 13:34 | Observation (INO) | payer BC, MEDICAID ==
[2021-02-19 14:37] VITALS: PULSE 68
[2021-02-19 14:38] VITALS: BP 124/78
--- NOTE | 2021-02-19 15:22 | XRAY ---
Indication: Routine care. Ultrasound biophysical profile study performed and compared to February 16, 2021. Again single viable intrauterine with heart rate 147 BPM. Four-quadrant MILANA is 15.1 cm, largest pocket 5.2 cm. 2 points given for breathing, movements, tone, and qualitative amniotic fluid volume. Impression: Total biophysical profile score is now 8 out of 8. This was previously 6 out of 8.
== END 2021-02-19 15:01 | disposition home or self-care (01) ==
LOC: OB 13:34
PROVIDERS: ADMIT Family Medicine; ATTEND Family Medicine
DX: O24.419 Gestational diabetes mellitus in pregnancy, unspecified control (principal); Z3A.37 37 weeks gestation of pregnancy
CPT/HCPCS: 59025; 76818; G0378

== ENCOUNTER 2021-02-24 08:30 | Inpatient (IN) | payer BC, MEDICAID ==
[2021-02-24] MEDS ORDERED: Zofran 4 MG/2 ML VIAL IV PRN (20:00)
[2021-02-24 20:54] LABS: Absolute Neutrophil Ct (ANC) 11.54 (1.4-6.9); BASOPHIL % 0.2 % (0.0-0.4); Basophil (Absolute #) 0.03 (0-0.4); Eosinophil % 0.6 % (0.00-5.0); Eosinophil (Absolute #) 0.09 (0-0.5); Hematocrit 34.6 % (35-47); Hemoglobin 11.3 gm/dl (12.0-16.0); Lymphocytes % 15.8 % (24.0-44.0); Mean Cell Volume 88.3 fl (78-100); Mean Corpuscular Hemoglobin 28.8 pg (26-32); Mean Corpuscular Hgb Concent. 32.7 g/dl (32-36); Mean Platelet Volume 9.1 fl (7.5-11.0); Monocyte (Absolute #) 0.61 (0.0-1.3); Monocytes % 4.2 % (0.0-12.0); Neutrophil % 79.2 % (36.0-66.0); Platelet Count 334 K/mm3 (150-450); Red Blood Count 3.92 M/mm3 (4.1-5.4); Red Cell Distribution Width 16.1 % (11.5-14.0); White Blood Count 14.6 K/mm3 (4.0-10.5)
[2021-02-24] MEDS: CYTOTEC PO SCH ×2 (20:55→22:55)
[2021-02-24 21:04] LABS: Appearance CLOUDY (CLEAR); Bacteria PACKED /HPF (NEGATIVE); Bilirubin NEGATIVE (NEGATIVE); Blood NEGATIVE Ery/ul (0-5); Epithelial Cells MANY /HPF (FEW); Glucose NEGATIVE (NEGATIVE); Ketones NEGATIVE (NEGATIVE); Leukocyte Esterase MODERATE (NEGATIVE); Mucus MANY /HPF (NEGATIVE); Nitrite NEGATIVE (NEGATIVE); Protein,Urine Dip 100 (Negative); Specific Gravity 1.025 (1.005-1.025); Urobilinogen 2 mg/dL (0-1)
[2021-02-24 21:07] LABS: ALBUMIN 3.8 g/dL (3.5-5.0); ALKALINE PHOSPHATASE 182 U/L (38-126); ANION GAP 17.2 MEQ/L (5-15); BLOOD UREA NITROGEN 12 mg/dL (7-17); CHLORIDE 105 mmol/L (98-107); Calcium 9.2 mg/dL (8.4-10.2); Carbon Dioxide 19 mmol/L (22-30); EST GLOMERULAR FILTRATION RATE > 60.0 ML/MIN; Glucose 137 mg/dL (74-106); Potassium 3.4 mmol/L (3.5-5.1); SGOT/AST 40 U/L (14-36); SGPT/ALT 32 U/L (0-35); SODIUM 139 mmol/L (137-145); Total Protein 7.2 g/dL (6.3-8.2)
[2021-02-24 21:12] LABS: Amphetamine,Urine NEGATIVE (NEGATIVE); Barbiturate,Urine NEGATIVE (NEGATIVE); Benzodiazepine,Urine NEGATIVE (NEGATIVE); Cocaine,Urine NEGATIVE (NEGATIVE); Methadone,Urine NEGATIVE (NEGATIVE); Opiate,Urine NEGATIVE (NEGATIVE); PCP,Urine NEGATIVE (NEGATIVE); THC,Urine NEGATIVE (NEGATIVE)
[2021-02-24] MEDS ORDERED: TRANDATE 20 MG/4 ML SYRINGE IV PRN (21:30)
[2021-02-24] MEDS ORDERED: Nubain 10 MG/ML IV PRN (21:45)
[2021-02-24] MEDS ORDERED: Vitamin C 500 MG PO SCH (22:00)
[2021-02-24] MEDS ORDERED: ROCEPHIN 1 Gm-D5w 50 ml Bag** 1 G/50 ML IVPB IV ONE (22:09)
[2021-02-24] MEDS: ECOTRIN 81 MG PO SCH (22:17)
[2021-02-24] MEDS: Pepcid 20 MG PO SCH (22:18)
[2021-02-24] MEDS: Trandate 100 MG PO SCH (22:18)
[2021-02-24] MEDS: FEOSOL 325 MG PO SCH (22:18)
[2021-02-24] MEDS: Adalat CC 30 MG TABLET PO SCH (22:18)
[2021-02-24] MEDS ORDERED: Lactated Ringers 1,000 ML IV ONE (22:27)
[2021-02-24] MEDS: Lactated Ringers 1,000 ML IV SCH (22:51)
[2021-02-25] MEDS: CYTOTEC PO SCH ×5 (00:55→06:57)
[2021-02-25] MEDS ORDERED: XYLOCAINE 1% HCL 20 ML MDV IJ PRN (08:00)
[2021-02-25] MEDS ORDERED: PITOCIN 30 UNITS/ LR 500 ML 30 UNITS/500 ML IV.SOLN. IV SCH ×2 (08:00→09:00)
[2021-02-25] MEDS ORDERED: BRETHINE 1 MG/ML SQ PRN (09:00)
[2021-02-25] MEDS ORDERED: ROCEPHIN 1 Gm-D5w 50 ml Bag** 1 G/50 ML IVPB IV SCH (10:00)
[2021-02-25] MEDS: Vitamin B-6 (Pyridoxine) 100 MG PO SCH (10:31)
[2021-02-25] MEDS: FEOSOL 325 MG PO SCH ×2 (10:33→21:28)
[2021-02-25] MEDS: Colace 100 MG PO SCH (10:33)
[2021-02-25] MEDS: Trandate 100 MG PO SCH ×3 (10:33→21:28)
[2021-02-25] MEDS: Adalat CC 30 MG TABLET PO SCH ×2 (10:33→21:28)
[2021-02-25] MEDS: THERAGRAN MULTIVITAMIN PO SCH (10:33)
[2021-02-25] MEDS: TYLENOL EXTRA STRENGTH 500 MG PO PRN ×2 (13:52→22:47)
[2021-02-25] MEDS: Lactated Ringers 1,000 ML IV SCH (18:28)
[2021-02-25 19:51] LABS: Creatinine, Urine Random 165.7 mg/dl
[2021-02-25 20:19] LABS: ABO TYPING O; RH TYPING POSITIVE
[2021-02-25 20:20] LABS: Antibody Screen NEGATIVE (NEGATIVE)
[2021-02-25] MEDS: ECOTRIN 81 MG PO SCH (21:28)
[2021-02-25] MEDS: Pepcid 20 MG PO SCH (21:28)
[2021-02-25] MEDS ORDERED: ROCEPHIN 1 Gm-D5w 50 ml Bag** 1 G/50 ML IVPB IV ONE (22:00)
[2021-02-26] MEDS: Vitamin C 500 MG PO SCH ×2 (00:45→21:03)
[2021-02-26] MEDS: Trandate 100 MG PO SCH ×3 (09:40→22:15)
[2021-02-26] MEDS: Colace 100 MG PO SCH ×2 (09:40→21:02)
[2021-02-26] MEDS: Adalat CC 30 MG TABLET PO SCH ×2 (09:41→22:15)
[2021-02-26] MEDS: FEOSOL 325 MG PO SCH ×2 (09:41→21:02)
[2021-02-26] MEDS: THERAGRAN MULTIVITAMIN PO SCH (09:41)
[2021-02-26] MEDS: Vitamin B-6 (Pyridoxine) 100 MG PO SCH (09:55)
[2021-02-26] MEDS ORDERED: SOD CITRATE-CITRIC ACID SOLN PO SCH (12:15)
[2021-02-26] MEDS ORDERED: Reglan 10 MG/2 ML IV SCH (12:15)
[2021-02-26] MEDS ORDERED: Pepcid 20 MG VIAL IV SCH (12:15)
[2021-02-26 12:48] LABS: Hematocrit 32.7 % (35-47); Hemoglobin 10.7 gm/dl (12.0-16.0); Mean Cell Volume 88.9 fl (78-100); Mean Corpuscular Hemoglobin 29.1 pg (26-32); Mean Corpuscular Hgb Concent. 32.7 g/dl (32-36); Platelet Count 315 K/mm3 (150-450); Red Blood Count 3.68 M/mm3 (4.1-5.4); White Blood Count 12.5 K/mm3 (4.0-10.5)
[2021-02-26 12:56] LABS: INR 1.02 (0.8-3.0)
[2021-02-26 12:58] LABS: PTT 30.6 SECONDS (25.1-36.5)
[2021-02-26] MEDS ORDERED: Zithromax 500 MG/ 250 ML NaCl Premix 500 MG/250 ML IVPB IV ONE (13:30)
[2021-02-26] MEDS: KEFZOL 1 GM** 3 G in Sodium Chloride 0.9% 50 ML 50 ML IV SCH ×2 (14:14→22:13)
[2021-02-26] MEDS ORDERED: Astramorph-Pf 5 MG/10 ML ONE (15:34)
[2021-02-26] MEDS ORDERED: Dextrose 5%-Lr IV Solution 1000 ML 1,000 ML IV SCH (16:00)
[2021-02-26] MEDS ORDERED: CLARITIN 10 MG PO PRN (16:00)
[2021-02-26] MEDS ORDERED: Sodium Chloride 0.9% 10 ML FLUSH Syringe IJ PRN (16:00)
[2021-02-26] MEDS ORDERED: CORTISONE 1% CREAM TP PRN (16:00)
[2021-02-26] MEDS ORDERED: MORPHINE SULFATE 2 MG INJ IV PRN (16:00)
[2021-02-26] MEDS ORDERED: HOLD NARCOTIC ANALGESICS AND SEDATIVES X24 HR MC PRN (16:00)
[2021-02-26] MEDS ORDERED: Narcan 0.4 MG/ML IV PRN (16:00)
[2021-02-26] MEDS ORDERED: Nubain 10 MG/ML IV PRN (16:00)
[2021-02-26] MEDS ORDERED: PERCOCET TABLET 5/325MG PO PRN (16:00)
[2021-02-26] MEDS ORDERED: Mylicon 80MG PO PRN (16:00)
[2021-02-26] MEDS ORDERED: DEMEROL 50 MG IV PRN (16:00)
[2021-02-26] MEDS ORDERED: Dulcolax 10 MG SUPP PR PRN (16:00)
[2021-02-26] MEDS ORDERED: Anucort-HC SUPPOSITORY PR PRN (16:00)
[2021-02-26] MEDS ORDERED: LANSINOH 40 GM TOP PRN (16:00)
[2021-02-26] MEDS ORDERED: BENADRYL 50 MG/ML IV PRN (16:00)
[2021-02-26] MEDS ORDERED: TUCKS TP PRN (16:00)
[2021-02-26] MEDS ORDERED: PHENYLEPHRINE HCL ONE (16:14)
[2021-02-26] MEDS ORDERED: TORAdol 30 mg Injection ONE (16:14)
[2021-02-26] MEDS ORDERED: Pitocin 10 UNITS/ML ONE ×2 (16:14)
[2021-02-26] MEDS ORDERED: Zofran 4 MG/2 ML VIAL ONE (16:14)
[2021-02-26 17:44] LABS: Appearance SLIGHTLY CLOUDY (CLEAR); Bilirubin NEGATIVE (NEGATIVE); Blood NEGATIVE Ery/ul (0-5); Epithelial Cells RARE /HPF (FEW); Glucose NEGATIVE (NEGATIVE); Ketones SMALL (NEGATIVE); Leukocyte Esterase NEGATIVE (NEGATIVE); Mucus SLIGHT /HPF (NEGATIVE); Nitrite NEGATIVE (NEGATIVE); Protein,Urine Dip 30 (Negative); Specific Gravity 1.023 (1.005-1.025); Urobilinogen NEGATIVE mg/dL (0-1)
[2021-02-26 19:32] LABS: HBsAg Screen Negative (Negative)
[2021-02-26] MEDS: ECOTRIN 81 MG PO SCH (21:02)
[2021-02-26] MEDS: Pepcid 20 MG PO SCH (21:03)
[2021-02-27] MEDS: TYLENOL EXTRA STRENGTH 500 MG PO PRN ×2 (02:00→22:05)
[2021-02-27] MEDS ORDERED: ENOXAPARIN SODIUM SQ SCH (03:00)
[2021-02-27 05:47] LABS: Absolute Neutrophil Ct (ANC) 9.44 (1.4-6.9); BASOPHIL % 0.2 % (0.0-0.4); Basophil (Absolute #) 0.02 (0-0.4); Eosinophil % 0.8 % (0.00-5.0); Lymphocyte (Absolute #) 2.36 (1.0-4.6); Lymphocytes % 18.7 % (24.0-44.0); Mean Cell Volume 90.6 fl (78-100); Mean Corpuscular Hemoglobin 29.3 pg (26-32); Mean Corpuscular Hgb Concent. 32.3 g/dl (32-36); Monocyte (Absolute #) 0.72 (0.0-1.3); Monocytes % 5.7 % (0.0-12.0); Neutrophil % 74.6 % (36.0-66.0); Platelet Count 262 K/mm3 (150-450); Red Blood Count 2.87 M/mm3 (4.1-5.4); Red Cell Distribution Width 16.2 % (11.5-14.0); White Blood Count 12.6 K/mm3 (4.0-10.5)
[2021-02-27 05:50] LABS: Hemoglobin 8.4 gm/dl (12.0-16.0)
[2021-02-27] MEDS: MOTRIN 400 MG PO PRN ×2 (07:03→16:02)
[2021-02-27] MEDS: Adalat CC 30 MG TABLET PO SCH ×2 (10:28→22:05)
[2021-02-27] MEDS: Colace 100 MG PO SCH ×2 (10:28→22:06)
[2021-02-27] MEDS: ENOXAPARIN SODIUM SQ SCH (10:28)
[2021-02-27] MEDS: FERREX 150 PO SCH (10:28)
[2021-02-27] MEDS: THERAGRAN MULTIVITAMIN PO SCH (10:28)
[2021-02-27] MEDS: Vitamin B-6 (Pyridoxine) 100 MG PO SCH (10:29)
[2021-02-27] MEDS: Trandate 100 MG PO SCH ×3 (10:30→22:13)
--- NOTE | 2021-02-27 11:00 | PCM.NOTE ---
Date and Time: 02/27/21 1057 Subjective Assessment: POD 1 SP CSCTION PT RESTING IN BED AND DOING WELL. PT NOT AMBULATING AT THIS POINT. PT TOLERATING DIET. VSS AFEBRILE ABD; SOFT INCISION C/D/INTACT UTERUS; FIRM LOCHIA; MILD HGB; 8.4 A/P SP CSECTON POD 1 SECONDARY TO CHRONIC HTN WITH FAILED INDUCTION BP STABLE WITHOUT LABETOLOL WILL CONTINUE WITH PROCARDIA SHOULD ENCOURAGE AMBULATION Objective Exam Wound Assessment: Skin/Wound Assessment Wound/Incision Assessment Start: 02/27/21 01:58 Text: Status: Active Freq: Q6H Protocol: Document 02/27/21 01:58 LM (Rec: 02/27/21 01:59 LM [id number]) Wound/Incision Assessment Lower Anterior Abdomen Wound Type Incision Dressing Status Drainage circled Drainage Amount Minimal Drainage Description Serosanguineous Drainage Odor None/Absent OBJECTIVE DATA Vital Signs: Vital Signs - 24 hr Temp Pulse Resp BP BP Pulse Ox 02/27/21 01:47 97.4 F 74 18 125/67 98 02/26/21 21:57 98.2 F 72 18 135/71 97 02/26/21 19:15 85 18 121/57 02/26/21 17:45 64 18 124/66 02/26/21 17:15 62 18 131/74 02/26/21 15:00 98.1 F 18 02/26/21 14:12 98.1 F 70 18 134/77 02/26/21 12:00 98.1 F 70 18 132/72 Pain Assessment - Last Documented Pain Intensity [Anterior 5 Medial] Pain Intensity 4 Pain Scale Used 0-10 Pain Scale Intake and Output: Intake & Output 02/24/21 02/25/21 02/26/21 02/27/21 11:59 11:59 11:59 11:59 Intake Total 800 2170 0 Balance 800 2170 0 Weight 149.685 kg 149.685 kg Lab Results: Lab Results-Last 24 Hours 02/24/21 02/26/21 02/26/21 Range/Units 20:45 12:36 12:36 WBC 12.5 H (4.0-10.5) K/mm3 RBC 3.68 L (4.1-5.4) M/mm3 Hgb 10.7 L (12.0-16.0) gm/dl Hct 32.7 L (35-47) % MCV 88.9 (78-100) fl MCH 29.1 (26-32) pg MCHC 32.7 (32-36) g/dl RDW 16.0 H (11.5-14.0) % Plt Count 315 (150-450) K/mm3 MPV 9.0 (7.5-11.0) fl Gran % (36.0-66.0) % Eos # (Auto) (0-0.5) Absolute Lymphs (auto) (1.0-4.6) Absolute Monos (auto) (0.0-1.3) Lymphocytes % (24.0-44.0) % Monocytes % (0.0-12.0) % Eosinophils % (0.00-5.0) % Basophils % (0.0-0.4) % Absolute Granulocytes (1.4-6.9) Basophils # (0-0.4) PT 12.0 (9.4-12.5) SECONDS INR 1.02 (0.8-3.0) APTT 30.6 (25.1-36.5) SECONDS POC Glucometer (74 to 106) mg/dL Urine Color (YELLOW) Urine Appearance (CLEAR) Urine pH (5-6) Ur Specific [place] (1.005-1.025) Urine Protein (Negative) Urine Ketones (NEGATIVE) Urine Blood (0-5) Raghav/ul Urine Nitrite (NEGATIVE) Urine Bilirubin (NEGATIVE) Urine Urobilinogen (0-1) mg/dL Ur Leukocyte Esterase (NEGATIVE) Urine WBC (Auto) (0-5) /HPF Urine RBC (Auto) (0-2) /HPF U Epithel Cells (Auto) (FEW) /HPF Urine Bacteria (Auto) (NEGATIVE) /HPF Urine Mucus (Auto) (NEGATIVE) /HPF Urine Glucose (NEGATIVE) mg/dL Hep Bs Antigen Negative (Negative) 02/26/21 02/27/21 02/27/21 Range/Units 16:33 05:42 07:44 WBC 12.6 H (4.0-10.5) K/mm3 RBC 2.87 L (4.1-5.4) M/mm3 Hgb 8.4 L D (12.0-16.0) gm/dl Hct 26.0 L (35-47) % MCV 90.6 (78-100) fl MCH 29.3 (26-32) pg MCHC 32.3 (32-36) g/dl RDW 16.2 H (11.5-14.0) % Plt Count 262 (150-450) K/mm3 MPV 9.0 (7.5-11.0) fl Gran % 74.6 H (36.0-66.0) % Eos # (Auto) 0.10 (0-0.5) Absolute Lymphs (auto) 2.36 (1.0-4.6) Absolute Monos (auto) 0.72 (0.0-1.3) Lymphocytes % 18.7 L (24.0-44.0) % Monocytes % 5.7 (0.0-12.0) % Eosinophils % 0.8 (0.00-5.0) % Basophils % 0.2 (0.0-0.4) % Absolute Granulocytes 9.44 H (1.4-6.9) Basophils # 0.02 (0-0.4) PT (9.4-12.5) SECONDS INR (0.8-3.0) APTT (25.1-36.5) SECONDS POC Glucometer 66 L (74 to 106) mg/dL Urine Color ANAM (YELLOW) Urine Appearance SLIGHTLY CLOUDY (CLEAR) Urine pH 5.0 (5-6) Ur Specific [place] 1.023 (1.005-1.025) Urine Protein 30 (Negative) Urine Ketones SMALL (NEGATIVE) Urine Blood NEGATIVE (0-5) Raghav/ul Urine Nitrite NEGATIVE (NEGATIVE) Urine Bilirubin NEGATIVE (NEGATIVE) Urine Urobilinogen NEGATIVE (0-1) mg/dL Ur Leukocyte Esterase NEGATIVE (NEGATIVE) Urine WBC (Auto) 3-5 (0-5) /HPF Urine RBC (Auto) 6-10 (0-2) /HPF U Epithel Cells (Auto) RARE (FEW) /HPF Urine Bacteria (Auto) NONE (NEGATIVE) /HPF Urine Mucus (Auto) SLIGHT (NEGATIVE) /HPF Urine Glucose NEGATIVE (NEGATIVE) mg/dL Hep Bs Antigen (Negative) Multi-Disciplinary Progress Notes: Multi-Disciplinary Progress Notes 02/26/21 16:35 Respiratory Note by Nancy Richardson Baby born via . Baby crying upon delivery. Dried and stimulated and pinked up. Initialized on 02/26/21 16:35 - END OF NOTE Assessment/Plan (1) delivery due to maternal disorder Current Visit: Yes Status: Acute Code(s): O99.892 - OTH DISEASES AND CONDITIONS COMPLICATING CHILDBIRTH (2) Chronic hypertension affecting Current Visit: Yes Status: Acute Code(s): O10.919 - UNSP PRE-EXISTING HTN COMP , UNSP TRIMESTER (3) Morbid obesity Current Visit: Yes Status: Acute Code(s): E66.01 - MORBID (SEVERE) OBESITY DUE TO EXCESS CALORIES (4) Failed induction of labor Current Visit: Yes Status: Acute Code(s): O61.9 - FAILED INDUCTION OF LABOR, UNSPECIFIED
[2021-02-27] MEDS: FEOSOL 325 MG PO SCH ×2 (11:10→22:06)
[2021-02-27] MEDS: KEFZOL 1 GM** 3 G in Sodium Chloride 0.9% 50 ML 50 ML IV SCH (11:33)
[2021-02-27] MEDS ORDERED: NORCO 5/325 MG PO PRN (16:00)
[2021-02-27] MEDS ORDERED: Nubain 10 MG/ML IV PRN (16:00)
[2021-02-27 19:30] VITALS: O2SAT 97
[2021-02-27] MEDS: Vitamin C 500 MG PO SCH (22:05)
[2021-02-27] MEDS: Pepcid 20 MG PO SCH (22:05)
[2021-02-27] MEDS: ECOTRIN 81 MG PO SCH (22:06)
[2021-02-28] MEDS: MOTRIN 400 MG PO PRN ×2 (07:51→18:01)
[2021-02-28] MEDS: FEOSOL 325 MG PO SCH (09:12)
[2021-02-28] MEDS: Colace 100 MG PO SCH (09:12)
[2021-02-28] MEDS: Trandate 100 MG PO SCH ×2 (09:13→18:01)
[2021-02-28] MEDS: ENOXAPARIN SODIUM SQ SCH (09:13)
[2021-02-28] MEDS: THERAGRAN MULTIVITAMIN PO SCH (09:13)
[2021-02-28] MEDS: FERREX 150 PO SCH (09:14)
[2021-02-28] MEDS: Adalat CC 30 MG TABLET PO SCH (09:14)
[2021-02-28] MEDS: Vitamin B-6 (Pyridoxine) 100 MG PO SCH (09:14)
--- NOTE | 2021-02-28 09:25 | PCM.NOTE ---
Date and Time: 02/28/21922 Subjective Assessment: pod 2 sp csection pt resting in bed and doing well able to ambulate and tolerate diet.\ vss afebrile abd; soft incision c/d/intact uterus; firm lochia; mild a/p sp csection pod 2 with chronic htn will continue her procardia bid and labetolol will receive her lovenox this am will dc home today and fu in office this monday for incision check she will fu with provider for bp evaluation. Objective Exam Wound Assessment: Skin/Wound Assessment Wound/Incision Assessment Start: 02/27/21 01:58 Text: Status: Active Freq: Q6H Protocol: Document 02/28/21 01:00 (Rec: 02/28/21 06:35 [id number]) Wound/Incision Assessment Lower Anterior Abdomen Wound Type Incision Dressing Status Drainage circled Drainage Amount Minimal Drainage Description Serosanguineous Drainage Odor None/Absent OBJECTIVE DATA Vital Signs: Vital Signs - 24 hr Temp Pulse Resp BP Pulse Ox 02/28/21 07:00 98 F 97 H 18 143/92 02/28/21 06:40 98.3 F 82 18 131/72 02/28/21 01:28 98.6 F 93 H 18 133/81 02/27/21 16:00 98.2 F 79 18 128/60 97 02/27/21 09:55 98.1 F 79 18 122/60 Pain Assessment - Last Documented Pain Intensity [Anterior 5 Medial] Pain Intensity 6 Pain Scale Used 0-10 Pain Scale Intake and Output: Intake & Output 02/25/21 02/26/21 02/27/21 02/28/21 11:59 11:59 11:59 11:59 Intake Total 800 2170 0 Output Total 100 Balance 800 2170 0 -100 Weight 149.685 kg 149.685 kg Lab Results: Lab Results-Last 24 Hours 02/28/21 Range/Units 08:48 POC Glucometer 91 (74 to 106) mg/dL Assessment/Plan (1) delivery due to maternal disorder Current Visit: Yes Status: Acute Code(s): O99.892 - OTH DISEASES AND CONDITIONS COMPLICATING CHILDBIRTH (2) Chronic hypertension affecting Current Visit: Yes Status: Acute Code(s): O10.919 - UNSP PRE-EXISTING HTN COMP , UNSP TRIMESTER (3) Morbid obesity Current Visit: Yes Status: Acute Code(s): E66.01 - MORBID (SEVERE) OBESITY DUE TO EXCESS CALORIES (4) Failed induction of labor Current Visit: Yes Status: Acute Code(s): O61.9 - FAILED INDUCTION OF LABOR, UNSPECIFIED
--- NOTE | 2021-02-28 09:33 | PCM.DS ---
Discharge Summary Date of Admission: 02/26/21 08:30 Admitting Physician: MICHELLE MOON MD Consults: Consults on Case 02/26/21 12:15 Notify Physician OF ADMISSION 02/26/21 12:23 Notify Anesthesia Provider PRN Notify Anesthesia Provider ROUTINE 02/26/21 20:10 Navigation ONCE Primary Care Provider: SLOANE TAYLOR Allergies Allergies No Known Drug Allergies Allergy (Verified 02/24/21 21:13) Hospital Summary - Hospital Course Hospital Course: pt admitted on for induction secondary to chronic htn and morbid obesity however after two rounds of cytotec with oral and vaginal pt did not have cerv ical change therefore it was decided to proceed with csection on february 26. pt underwent csection without complication and delivered live baby boy without complication. during postop period did well and bp remained stable however reducing her labetolol dose to only taking it once daily however resuming her procardia to twice daily. at this time pt is stable for discharge and is to fu in my office this monday for incision check and her provider for bp evaluation. all questions answered to her satisfaction and rx for norco and ibuprofen to be sent. - Vitals & Intake/Output Vital Signs: Vital Signs Temperature 98 F 02/28/21 07:00 Pulse Rate 97 H 02/28/21 07:00 Respiratory Rate 18 02/28/21 07:00 Blood Pressure 143/92 02/28/21 07:00 O2 Sat by Pulse Oximetry 97 02/27/21 16:00 Intake & Output: Intake & Output 02/25/21 02/26/21 02/27/21 02/28/21 11:59 11:59 11:59 11:59 Intake Total 800 2170 0 Output Total 100 Balance 800 2170 0 -100 Weight 149.685 kg 149.685 kg - Lab Result Diagrams: 02/27/21 05:42 02/24/21 20:45 Lab Results-Last 24 Hrs: Lab Results-Last 24 Hours 02/28/21 Range/Units 08:48 POC Glucometer 91 (74 to 106) mg/dL Micro Results-Entire Visit: Microbiology 02/26/21 16:33 Urine Culture - Final Urine, Void NO GROWTH 02/24/21 20:45 Urine Culture - Final Urine, Void <10K NORMAL SKIN ALISA PROBABLE SKIN CONTAMINANT - Procedures and Test Procedures and Tests throughout Hospitalization: Therapy Orders & Screens 02/26/21 16:37 Standby STAT Comment: Discharge Exam Wound Assessment: Skin/Wound Assessment Wound/Incision Assessment Start: 02/27/21 01:58 Text: Status: Active Freq: Q6H Protocol: Document 02/28/21 01:00 (Rec: 02/28/21 06:35 [id number]) Wound/Incision Assessment Lower Anterior Abdomen Wound Type Incision Dressing Status Drainage circled Drainage Amount Minimal Drainage Description Serosanguineous Drainage Odor None/Absent Final Diagnosis/Problem List - Final Discharge Diagnosis/Problem (1) delivery due to maternal disorder Current Visit: Yes Status: Acute Code(s): O99.892 - OTH DISEASES AND CONDITIONS COMPLICATING CHILDBIRTH (2) Chronic hypertension affecting Current Visit: Yes Status: Acute Code(s): O10.919 - UNSP PRE-EXISTING HTN COMP , UNSP TRIMESTER (3) Morbid obesity Current Visit: Yes Status: Acute Code(s): E66.01 - MORBID (SEVERE) OBESITY DUE TO EXCESS CALORIES (4) Failed induction of labor Current Visit: Yes Status: Acute Code(s): O61.9 - FAILED INDUCTION OF LABOR, UNSPECIFIED - Discharge Disposition: Home, Self-Care Condition: Stable Prescriptions: New Aspirin EC 81 mg [Ecotrin 81 mg] 162 mg PO HS tablet.ec Ferrous Sulfate 325 mg [Feosol 325 mg] 325 mg PO BID 30 Days #60 tablet Labetalol HCl 100 mg [Trandate 100 MG] 100 mg PO TID tablet Hydrocodone/Acetaminophen [Hydrocodone-Acetamin 5-325 mg] 1 tab PO Q6HPRN PRN #30 tablet MDD 4 PRN Reason: Pain Ibuprofen 600 mg PO Q6H PRN PRN #42 tablet PRN Reason: Pain Continue NIFEdipine [Nifedipine ER] 60 mg PO BID Labetalol HCl 100 mg [Trandate 100 MG] 1 ea PO TID Pyridoxine HCl 100 mg [Vitamin B-6 (Pyridoxine) 100 MG] 25 mg PO DAILY Vits W-Ca,Fe,FA(<1Mg) [] 1 each PO DAILY Ferrous Sulfate [Iron] 325 mg PO BID Docusate Sodium [Stool Softener] 100 mg PO DAILY Aspirin EC 81 mg [Ecotrin 81 mg] 162 mg PO HS Ascorbic Acid [Vitamin C] 100 mg PO HS Discontinued Cephalexin Mh 500 mg [Keflex 500 mg] 250 mg PO BID Follow up with: SLOANE TAYLOR [Primary Care Provider] -
[2021-02-28] MEDS: TYLENOL EXTRA STRENGTH 500 MG PO PRN (09:42)
[2021-02-28 22:28] VITALS: BP 145/81; PULSE 92
--- NOTE | 2021-03-01 13:36 | OP ---
SURGERY DATE/TIME: 02/26/2021 1538 PREOPERATIVE DIAGNOSIS: Intrauterine at 38 weeks and 4 days gestation with chronic hypertension, morbid obesity, arrest of dilatation with failed induction. POSTOPERATIVE DIAGNOSIS: Intrauterine at 38 weeks and 4 days gestation with chronic hypertension, morbid obesity, arrest of dilatation with failed induction with nuchal cord x2. PROCEDURE: Primary section, low flap transverse uterine incision, Pfannenstiel skin incision. SURGEON: Cortez Alba D.O. [employer] HELPER: Dru Banks and Michelle Gunn, surgical technicians. ANESTHESIA: Spinal. ESTIMATED BLOOD LOSS: 400 cc. COMPLICATIONS: None. INDICATIONS: The risks, benefits, indications and alternatives of the procedure were reviewed with the patient prior to procedure. The patient understood the risk of infection, bleeding, bowel injury, bladder injury, ureteral injury, uterine perforation, pelvic infection and thromboembolic disorder associated with the surgery however desires to have this surgery as a possible need to alleviate her current medical condition. DESCRIPTION OF PROCEDURE AND FINDINGS: At this point the patient is taken to the operating room where her spinal anesthesia was found to adequate. She was then prepared and draped in normal sterile fashion in the dorsal supine position with a leftward tilt. A Pfannenstiel skin incision is made with a scalpel and carried through to the underlying layer of the fascia with Bovie. The fascia was then incised in the midline and the incision extended laterally with Fiore scissors. The superior aspect of the fascial incision was then grasped Kimmy clamps elevated and the underlying rectus muscles dissected off bluntly. Attention is then turned to the inferior aspect of this incision which in similar fashion was grasped, tented up with Kimmy clamps and the rectus muscles dissected off bluntly. The rectus muscles were then at the midline and the peritoneum identified, tented up and entered sharply with Metzenbaum scissors. The peritoneal incision was then extended superiorly and inferiorly with good visualization of the bladder. The bladder blade was then inserted and the vesicouterine peritoneum identified, grasped with a pickup and entered sharply with Metzenbaum scissors. This incision was then extended laterally and bladder flap created digitally. The bladder blade was then reinserted and the lower uterine segment incised in transverse fashion with a scalpel. The uterine incision was then extended laterally with bandage scissors. The bladder blade was then removed. The 's head was delivered atraumatically and was noted with nuchal cord x2 which was reduced. The nose and mouth were suctioned with bulb suction and the cord clamped and cut. The infant was then handed off to the awaiting nurses. The placenta was then removed manually. The uterus exteriorized and cleared of all clots and debris. The uterine incision was repaired with 1-0 chromic in a running locked fashion. A second layer of the same suture was used to obtain excellent hemostasis. At this point the uterus is then returned to the abdomen. The gutters were cleared of clots and the peritoneal muscle closed in interrupted fashion using 2-0 chromic suture. The fascia was re-approximated with 0 Vicryl in a running fashion. The subcutaneous layer was closed with 2-0 Vicryl and the skin was closed with absorbable donna called INSORB. The patient tolerated the procedure well. Sponge, lap, needle and instrument counts were correct x2. The patient was then taken to the recovery room in stable condition. The patient delivered a live baby boy at 1611 hours, weight of the baby was 6 pounds 9 ounces and 's were 9 at 1 minute and 9 at 5 minutes.
== END 2021-02-28 20:00 | disposition home or self-care (01) | DRG 788 ==
LOC: OB 08:30 → OBSVTOIN 02-26 08:30
PROVIDERS: ADMIT Family Medicine; ATTEND Family Medicine
PROC: 10D00Z1 Extraction of Products of Conception, Low, Open Approach (ICD-10-PCS; principal; 2021-02-26)
DX: O10.92 Unspecified pre-existing hypertension complicating childbirth (principal); O62.0 Primary inadequate contractions; O61.0 Failed medical induction of labor; Z3A.38 38 weeks gestation of pregnancy; Z37.0 Single live birth; E66.01 Morbid (severe) obesity due to excess calories
CPT/HCPCS: 36415; 59510; 62322; 64488; 76942; 80053; 80307; 81001; 82570; 82947; 84156; 84550; 85025; 85027; 85610; 85730; 86850; 86900; 86901; 87086; 87340; 94799; 96372; G0378; J0456; J0690; J0696; J1650; J1885; J2274; J2370; J2405; J2590; L0625; A9270-GY

== ENCOUNTER 2021-03-02 14:03 | Emergency (ER) | payer BC, MEDICAID ==
[2021-03-02] MEDS ORDERED: Sodium Chloride 0.9% 1000 ML 1,000 ML ONE (15:19)
[2021-03-02] MEDS: Sodium Chloride 0.9% 1000 ML 1,000 ML IV STA (15:21)
[2021-03-02 15:24] LABS: Absolute Neutrophil Ct (ANC) 9.17 (1.4-6.9); BASOPHIL % 0.3 % (0.0-0.4); Basophil (Absolute #) 0.04 (0-0.4); Eosinophil % 2.4 % (0.00-5.0); Hemoglobin 8.9 gm/dl (12.0-16.0); Lymphocyte (Absolute #) 2.37 (1.0-4.6); Lymphocytes % 18.9 % (24.0-44.0); Mean Cell Volume 91.2 fl (78-100); Mean Corpuscular Hgb Concent. 31.8 g/dl (32-36); Mean Platelet Volume 9.2 fl (7.5-11.0); Monocyte (Absolute #) 0.68 (0.0-1.3); Monocytes % 5.4 % (0.0-12.0); Platelet Count 383 K/mm3 (150-450); Red Blood Count 3.07 M/mm3 (4.1-5.4); Red Cell Distribution Width 15.8 % (11.5-14.0); White Blood Count 12.6 K/mm3 (4.0-10.5)
[2021-03-02 15:30] LABS: ALBUMIN 3.7 g/dL (3.5-5.0); ALKALINE PHOSPHATASE 113 U/L (38-126); ANION GAP 14.1 MEQ/L (5-15); BLOOD UREA NITROGEN 8 mg/dL (7-17); CHLORIDE 105 mmol/L (98-107); Calcium 9.5 mg/dL (8.4-10.2); Carbon Dioxide 24 mmol/L (22-30); Creatinine 1 0.47 mg/dL (0.52-1.04); EST GLOMERULAR FILTRATION RATE > 60.0 ML/MIN; Glucose 84 mg/dL (74-106); Potassium 3.4 mmol/L (3.5-5.1); SGOT/AST 74 U/L (14-36); SGPT/ALT 58 U/L (0-35); SODIUM 139 mmol/L (137-145); Total Protein 6.8 g/dL (6.3-8.2)
[2021-03-02 17:38] LABS: Appearance SLIGHTLY CLOUDY (CLEAR); Bilirubin NEGATIVE (NEGATIVE); Blood LARGE Ery/ul (0-5); Epithelial Cells RARE /HPF (FEW); Glucose NEGATIVE (NEGATIVE); Ketones NEGATIVE (NEGATIVE); Leukocyte Esterase NEGATIVE (NEGATIVE); Mucus SLIGHT /HPF (NEGATIVE); Nitrite NEGATIVE (NEGATIVE); Protein,Urine Dip 30 (Negative); Specific Gravity 1.018 (1.005-1.025); Urobilinogen NEGATIVE mg/dL (0-1)
[2021-03-02 17:39] LABS: Bacteria NONE SEEN /HPF (NEGATIVE); RBC >101 /HPF (0-2)
--- NOTE | 2021-03-02 17:45 | ERPHSYRPT ---
- History of Present Illness Time Seen by Provider: 03/02/21 14:35 Source: patient Exam Limitations: no limitations Patient Subjective Stated Complaint: pt here for loose stools since last night , total 7 stools, she has had 4 glasses of water today, but is breast feeding 136/92, pt had c/s on 02/26 Triage Nursing Assessment: pt alert, walked in , resp easy skin w/d/p. abd soft, mucus membranses moist Physician History: Patient is a 25-year-old female 1 week postop secondary delivery. The delivery was uncomplicated. Patient states she has been experiencing loose stools all day today. Patient had approximately 7 loose stools today. Patient called the primary care doctor who advised her to come to our ED for hydration. Patient does not have pain. No fever. No rash. No trauma. Symptoms are mild to moderate in intensity. No specific worsening or improving factors. Patient voices no other complaints or concerns at this time. Timing/Duration: today Severity: moderate Modifying Factors: Improves With: nothing Associated Symptoms: denies symptoms Allergies/Adverse Reactions: No Known Drug Allergies Allergy (Verified 03/02/21 14:28) Home Medications: NIFEdipine [Nifedipine ER] 60 mg PO BID 08/14/20 [History] Vits W-Ca,Fe,FA(<1Mg) [] 1 each PO DAILY 09/29/20 [History] Pyridoxine HCl 100 mg [Vitamin B-6 (Pyridoxine) 100 MG] 25 mg PO DAILY 09/29/20 [History] Docusate Sodium [Stool Softener] 100 mg PO DAILY 10/06/20 [History] Ferrous Sulfate [Iron] 325 mg PO BID 10/06/20 [History] Ascorbic Acid [Vitamin C] 100 mg PO HS 01/22/21 [History] Labetalol HCl 100 mg [Trandate 100 MG] 200 mg PO BID 03/02/21 [History] Hx Tetanus, Diphtheria Vaccination/Date Given: No Hx Influenza Vaccination/Date Given: Yes Hx Pneumococcal Vaccination/Date Given: No Immunizations Up to Date: Yes Travel Risk - International Travel Have you traveled outside of the country in past 3 weeks: No - Coronavirus Screening Are you exhibiting any of the following symptoms?: No Close contact with a COVID-19 positive Pt in past 14-21 Days: No - Vaccine Status Have you recieved a Covid-19 vaccination: No - Review of Systems Constitutional: No Symptoms, No Fever, No Chills Eyes: No Symptoms Ears, Nose, & Throat: No Symptoms Respiratory: No Symptoms, No Cough, No Dyspnea Cardiac: No Symptoms, No Chest Pain, No Edema, No Syncope Abdominal/Gastrointestinal: No Symptoms, No Abdominal Pain, No Nausea, No Vo miting, No Diarrhea Genitourinary Symptoms: No Symptoms, No Dysuria Musculoskeletal: No Symptoms, No Back Pain, No Neck Pain Skin: No Symptoms, No Rash Neurological: No Symptoms, No Dizziness, No Focal Weakness, No Sensory Changes Psychological: No Symptoms Endocrine: No Symptoms Hematologic/Lymphatic: No Symptoms Immunological/Allergic: No Symptoms All Other Systems: Reviewed and Negative - Past Medical History Pertinent Past Medical History: Yes Neurological History: Migraines ENT History: No Pertinent History Cardiac History: Hypertension Respiratory History: No Pertinent History Endocrine Medical History: Diabetes Type II, Other Musculoskeletal History: No Pertinent History GI Medical History: Gallbladder Disease, Other History: No Pertinent History, Other Psycho-Social History: No Pertinent History Female Reproductive Disorders: No Pertinent History Other Medical History: GESTASIONAL DIABETES, GALLBLADDER REMOVED, UTI WITH - Past Surgical History Past Surgical History: Yes Neuro Surgical History: No Pertinent History Cardiac: No Pertinent History Respiratory: No Pertinent History Gastrointestinal: Cholecystectomy Genitourinary: No Pertinent History Musculoskeletal: No Pertinent History Female Surgical History: Section - Social History Smoking Status: Never smoker Exposure to second hand smoke: No Drug Use: none Patient Lives Alone: No - Female History Hx Last Menstrual Period: may 2020 Hx Now: No - Nursing Vital Signs Nursing Vital Signs: Initial Vital Signs Temperature 96.8 F 03/02/21 14:03 Pulse Rate 75 03/02/21 14:03 Respiratory Rate 16 03/02/21 14:03 Blood Pressure 136/92 03/02/21 14:03 O2 Sat by Pulse Oximetry 97 03/02/21 14:03 Pain Scale Pain Intensity 0 - Physical Exam General Appearance: no apparent distress, alert Eye Exam: PERRL/EOMI, eyes nml inspection Ears, Nose, Throat Exam: normal ENT inspection, TMs normal, pharynx normal, moist mucous membranes Neck Exam: normal inspection, non-tender, supple, full range of motion Respiratory Exam: normal breath sounds, lungs clear, No respiratory distress Cardiovascular Exam: regular rate/rhythm, normal heart sounds, normal peripheral pulses Gastrointestinal/Abdomen Exam: soft, normal bowel sounds, No tenderness, No mass Back Exam: normal inspection, normal range of motion, No CVA tenderness, No vertebral tenderness Extremity Exam: normal inspection, normal range of motion, pelvis stable Neurologic Exam: alert, oriented x 3, cooperative, normal mood/affect, nml cerebellar function, nml station & gait, sensation nml, No motor deficits Skin Exam: normal color, warm, dry, No rash Lymphatic Exam: No adenopathy SpO2 Interpretation: normal SpO2: 98 O2 Delivery: Room Air - Course Nursing assessment & vital signs reviewed: Yes Ordered Tests: Active Orders 24 hr Category Date Time Status IV Insertion STAT Care 03/02/21 15:02 Active CBC W DIFF Stat Lab 03/02/21 15:00 Completed CMP Stat Lab 03/02/21 15:00 Completed CULTURE,URINE Stat Lab 03/02/21 16:08 Received UA W/RFX UR CULTURE Stat Lab 03/02/21 16:08 Completed Medication Summary Discontinued Medications Generic Name Dose Route Start Last Admin Trade Name Alisa PRN Reason Stop Dose Admin Sodium Chloride 1,000 mls @ 999 mls/hr 03/02/21 15:18 03/02/21 16:34 Sodium Chloride 0.9% 1000 Ml IV 03/02/21 16:18 Infused .Q1H1M STA Infusion Sodium Chloride Confirm 03/02/21 15:19 Sodium Chloride 0.9% 1000 Ml Administered 03/02/21 15:20 Dose 1,000 mls @ ud .ROUTE .K-MED ONE Lab/Rad Data: Laboratory Result Diagrams 03/02/21 15:00 03/02/21 15:00 Laboratory Results 03/02/21 03/02/21 03/02/21 Range/Units 16:08 15:00 15:00 WBC 12.6 H (4.0-10.5) K/mm3 RBC 3.07 L (4.1-5.4) M/mm3 Hgb 8.9 L (12.0-16.0) gm/dl Hct 28.0 L (35-47) % MCV 91.2 (78-100) fl MCH 29.0 (26-32) pg MCHC 31.8 L (32-36) g/dl RDW 15.8 H (11.5-14.0) % Plt Count 383 (150-450) K/mm3 MPV 9.2 (7.5-11.0) fl Gran % 73.0 H (36.0-66.0) % Eos # (Auto) 0.30 (0-0.5) Absolute Lymphs (auto) 2.37 (1.0-4.6) Absolute Monos (auto) 0.68 (0.0-1.3) Lymphocytes % 18.9 L (24.0-44.0) % Monocytes % 5.4 (0.0-12.0) % Eosinophils % 2.4 (0.00-5.0) % Basophils % 0.3 (0.0-0.4) % Absolute Granulocytes 9.17 H (1.4-6.9) Basophils # 0.04 (0-0.4) Sodium 139 (137-145) mmol/L Potassium 3.4 L (3.5-5.1) mmol/L Chloride 105 (98-107) mmol/L Carbon Dioxide 24 (22-30) mmol/L Anion Gap 14.1 (5-15) MEQ/L BUN 8 (7-17) mg/dL Creatinine 0.47 L (0.52-1.04) mg/dL Estimated GFR > 60.0 ML/MIN Glucose 84 (74-106) mg/dL Calcium 9.5 (8.4-10.2) mg/dL Total Bilirubin 0.40 (0.2-1.3) mg/dL AST 74 H (14-36) U/L ALT 58 H (0-35) U/L Alkaline Phosphatase 113 (38-126) U/L Serum Total Protein 6.8 (6.3-8.2) g/dL Albumin 3.7 (3.5-5.0) g/dL Urine Color YELLOW (YELLOW) Urine Appearance SLIGHTLY CLOUDY (CLEAR) Urine pH 6.0 (5-6) Ur Specific [place] 1.018 (1.005-1.025) Urine Protein 30 (Negative) Urine Ketones NEGATIVE (NEGATIVE) Urine Blood LARGE (0-5) Raghav/ul Urine Nitrite NEGATIVE (NEGATIVE) Urine Bilirubin NEGATIVE (NEGATIVE) Urine Urobilinogen NEGATIVE (0-1) mg/dL Ur Leukocyte Esterase NEGATIVE (NEGATIVE) Urine WBC (Auto) 6-10 (0-5) /HPF Urine RBC (Auto) >101 (0-2) /HPF U Epithel Cells (Auto) RARE (FEW) /HPF Urine Bacteria (Auto) NONE SEEN (NEGATIVE) /HPF Urine Mucus (Auto) SLIGHT (NEGATIVE) /HPF Urine Culture Reflexed YES (NO) Urine Glucose NEGATIVE (NEGATIVE) mg/dL - Progress Progress: improved Progress Note: Case discussed with Dr. Alba. We will treat patient symptomatically. Patient received a liter IV fluids. She feels much better. No bowel movements while in our ED. Patient's hemoglobin is 8.9. Her hemoglobin is trending up as compared to her discharge hemoglobin. Mild leukocytosis. UA appears to have a UTI. We forwarded a prescription of Zofran and Macrobid to patient's pharmacy. Patient currently has a an appointment scheduled with Dr. Beckford next Monday. Patient states he is ready for discharge. She voices no other complaints or concerns at this time. 03/02/21 17:[address] Soledad Will see patient in: office Counseled pt/family regarding: lab results, diagnosis, need for follow-up - Departure Departure Disposition: Home Clinical Impression: UTI (urinary tract infection), Nausea and vomiting, Normocytic anemia Condition: Stable Critical Care Time: No Referrals: SLOANE TAYLOR [Primary Care Provider] - Instructions: Dehydration, Adult (DC) Prescriptions: Ondansetron ODT 4 MG [Zofran Odt 4 mg] 4 mg PO Q6H PRN PRN #10 tab.rapdis PRN Reason: Vomiting Nitrofurantoin Monohyd/M-Cryst [Macrobid 100 mg Capsule] 100 mg PO BID 7 Days #14 capsule
[2021-03-02 17:48] VITALS: BP 134/85; PULSE 68
[2021-03-02 17:53] VITALS: O2SAT 98
== END 2021-03-02 17:52 | disposition home or self-care (01) ==
LOC: ED 14:03
DX: N39.0 Urinary tract infection, site not specified (principal)
CPT/HCPCS: 36000; 36415; 80053; 81001; 85025; 87077; 87086; 87186; 96360; 99284

== ENCOUNTER 2022-05-08 03:46 | Emergency (ER) | payer BC, MEDICAID ==
[2022-05-08] MEDS ORDERED: Hydromorphone 1 mg/ml Injection IV ONE (04:15)
[2022-05-08] MEDS ORDERED: Sodium Chloride 0.9% 1000 ML 1,000 ML IV STA ×2 (04:15→04:55)
[2022-05-08] MEDS ORDERED: Zofran 4 MG/2 ML VIAL IV ONE (04:15)
[2022-05-08] MEDS ORDERED: PROTONIX 40 MG IV IV ONE ×2 (04:15→04:31)
--- NOTE | 2022-05-08 04:15 | ERPHSYRPT ---
- History of Present Illness Historian: patient Exam Limitations: no limitations Patient Subjective Stated Complaint: pt is stating that she has been feeling sick to her stomach, then for the last 4 hours has had nusea and vomiting. states pain is 7/10 in abdomen Triage Nursing Assessment: pt is alert and oriented. vitals wnl. Timing/Duration: today Activities at Onset: none Quality: cramping Abdominal Pain Onset Location: generalized abdomen Pain Radiation: no radiation Severity of Pain-Max: moderate Severity of Pain-Current: moderate Modifying Factors: Improves With: vomiting Associated Symptoms: diarrhea, loss of appetite, nausea, vomiting, No chest pain, No shortness of breath Previous symptoms: no prior history Hx Tetanus, Diphtheria Vaccination/Date Given: No Hx Influenza Vaccination/Date Given: Yes Hx Pneumococcal Vaccination/Date Given: No - History of Present Illness Time Seen by Provider: 05/08/22 04:10 Physician History: This is a morbidly obese 26-year-old white female who feels she may have food poisoning. Patient ate at 11 PM over 24 hours ago and within 8 to 12 hours of eating her meal she began feeling nausea and having a "acid" stomach. Few hours later she began having more intense nausea and a few episodes of vomiting. Within the last 4 hours she has had several episodes of vomiting, diarrhea and abdominal cramping pain. She has not had a fever. No one else in the family ate what she ate and is not having symptoms that she is having. She has had no fever. She denies cough. She has no chest pain she is not short of breath her abdominal pain is nonradiating, cramping and generalized. (LEONARDO MOROCHO) Allergies/Adverse Reactions: No Known Drug Allergies Allergy (Verified 03/02/21 14:28) Home Medications: NIFEdipine [Nifedipine ER] 60 mg PO BID 08/14/20 [History] Vits W-Ca,Fe,FA(<1Mg) [] 1 each PO DAILY 09/29/20 [History] Pyridoxine HCl 100 mg [Vitamin B-6 (Pyridoxine) 100 MG] 25 mg PO DAILY 09/29/20 [History] Docusate Sodium [Stool Softener] 100 mg PO DAILY 10/06/20 [History] Ferrous Sulfate [Iron] 325 mg PO BID 10/06/20 [History] Ascorbic Acid [Vitamin C] 100 mg PO HS 01/22/21 [History] Labetalol HCl 100 mg [Trandate 100 MG] 200 mg PO BID 03/02/21 [History] Travel Risk - International Travel Have you traveled outside of the country in past 3 weeks: No - Coronavirus Screening Are you exhibiting any of the following symptoms?: No Close contact with a COVID-19 positive Pt in past 14-21 Days: No - Vaccine Status Have you recieved a Covid-19 vaccination: No - Review of Systems Constitutional: No Symptoms Eyes: No Symptoms Ears, Nose, & Throat: No Symptoms Respiratory: No Symptoms Cardiac: No Symptoms Abdominal/Gastrointestinal: Abdominal Pain, Nausea, Vomiting, Diarrhea, No C onstipation Genitourinary Symptoms: No Symptoms Musculoskeletal: No Symptoms Skin: No Symptoms Neurological: No Symptoms Psychological: No Symptoms Endocrine: No Symptoms Hematologic/Lymphatic: No Symptoms Immunological/Allergic: No Symptoms All Other Systems: Reviewed and Negative - Past Medical History Pertinent Past Medical History: Yes Neurological History: Migraines ENT History: No Pertinent History Cardiac History: Hypertension Respiratory History: No Pertinent History Endocrine Medical History: Diabetes Type II, Other Musculoskeletal History: No Pertinent History GI Medical History: Gallbladder Disease, Other History: No Pertinent History, Other Psycho-Social History: No Pertinent History Female Reproductive Disorders: No Pertinent History Other Medical History: GESTASIONAL DIABETES, GALLBLADDER REMOVED, UTI WITH - Past Surgical History Past Surgical History: Yes Neuro Surgical History: No Pertinent History Cardiac: No Pertinent History Respiratory: No Pertinent History Gastrointestinal: Cholecystectomy Genitourinary: No Pertinent History Musculoskeletal: No Pertinent History Female Surgical History: Section - Social History Smoking Status: Never smoker Exposure to second hand smoke: No Drug Use: none Patient Lives Alone: No - Female History Hx Last Menstrual Period: 08/07/21 Hx Now: No - Physical Exam General Appearance: no apparent distress, alert, anxiety, obese Eye Exam: PERRL/EOMI, eyes nml inspection Ears, Nose, Throat Exam: normal ENT inspection, moist mucous membranes Neck Exam: normal inspection, non-tender, supple, full range of motion Respiratory Exam: normal breath sounds, lungs clear, airway intact, No chest tenderness, No respiratory distress Cardiovascular Exam: regular rate/rhythm, normal heart sounds, normal peripheral pulses Gastrointestinal/Abdomen Exam: soft, normal bowel sounds, tenderness, guarding, No rebound Pelvic Exam: not done Rectal Exam: not done Back Exam: normal inspection, normal range of motion, No CVA tenderness, No vertebral tenderness Extremity Exam: normal inspection, normal range of motion, pelvis stable Neurologic Exam: alert, oriented x 3, cooperative, clinical trial leader II-XII nml as tested, normal mood/affect, nml cerebellar function, nml station & gait, sensation nml Skin Exam: normal color, warm, dry Lymphatic Exam: No adenopathy SpO2 Interpretation: normal SpO2: 97 O2 Delivery: Room Air - Nursing Vital Signs Nursing Vital Signs: Initial Vital Signs Temperature 97.4 F 05/08/22 03:51 Pulse Rate 75 05/08/22 03:51 Respiratory Rate 18 05/08/22 03:51 Blood Pressure 148/98 05/08/22 03:51 O2 Sat by Pulse Oximetry 97 05/08/22 03:51 Pain Scale Pain Intensity 0 - Course Nursing assessment & vital signs reviewed: Yes Ordered Tests: Active Orders 24 hr Category Date Time Status IV Insertion STAT Care 05/08/22 04:15 Completed ABDOMEN AND PELVIS W/0 CONTRAS [CT] Stat Exams 05/08/22 04:15 Completed AMYLASE Stat Lab 05/08/22 04:30 Completed BLOOD CULTURE Stat Lab 05/08/22 04:31 Received CBC W DIFF Stat Lab 05/08/22 04:30 Completed CMP Stat Lab 05/08/22 04:30 Completed HCG,QUALITATIVE URINE Stat Lab 05/08/22 04:22 Completed LIPASE Stat Lab 05/08/22 04:30 Completed Lactic Acid Stat Lab 05/08/22 04:27 Completed UA W/RFX CULTURE Stat Lab 05/08/22 04:22 Completed Medication Summary Discontinued Medications Generic Name Dose Route Start Last Admin Trade Name Freq PRN Reason Stop Dose Admin Hydromorphone HCl 1 mg 05/08/22 04:15 05/08/22 04:33 Hydromorphone 1 Mg/1ml Inj 1 Mg/Ml Syringe IV 05/08/22 04:16 1 mg STAT ONE Administration Hydromorphone HCl Confirm 05/08/22 04:31 Hydromorphone 1 Mg/1ml Inj 1 Mg/Ml Syringe Administered 05/08/22 04:32 Dose 1 mg .ROUTE .STK-MED ONE Sodium Chloride 1,000 mls @ 999 mls/hr 05/08/22 04:15 05/08/22 07:04 Sodium Chloride 0.9% 1000 Ml IV 05/08/22 05:15 Infused .Q1H1M STA Infusion Sodium Chloride Confirm 05/08/22 04:31 Sodium Chloride 0.9% 1000 Ml Administered 05/08/22 04:32 Dose 1,000 mls @ ud .ROUTE .STK-MED ONE Sodium Chloride 1,000 mls @ 999 mls/hr 05/08/22 04:55 05/08/22 07:03 Sodium Chloride 0.9% 1000 Ml IV 05/08/22 05:55 Infused .Q1H1M STA Infusion Sodium Chloride Confirm 05/08/22 05:47 Sodium Chloride 0.9% 1000 Ml Administered 05/08/22 05:48 Dose 1,000 mls @ ud .ROUTE .STK-MED ONE Sodium Chloride 500 mls @ 500 mls/hr 05/08/22 06:43 05/08/22 08:14 Sodium Chloride 0.9% 500 Ml IV 05/08/22 07:42 Infused .Q1H ONE Infusion Sodium Chloride Confirm 05/08/22 06:45 Sodium Chloride 0.9% 500 Ml Administered 05/08/22 06:46 Dose 500 mls @ ud IV .STK-MED ONE Ondansetron HCl 4 mg 05/08/22 04:15 05/08/22 04:34 Ondansetron Hcl 4 Mg/2 Ml Vial IV 05/08/22 04:16 4 mg STAT ONE Administration Ondansetron HCl Confirm 05/08/22 04:31 Ondansetron Hcl 4 Mg/2 Ml Vial Administered 05/08/22 04:32 Dose 4 mg .ROUTE .STK-MED ONE Pantoprazole Sodium 40 mg 05/08/22 04:15 05/08/22 04:34 Pantoprazole 40 Mg Vial IV 05/08/22 04:16 40 mg STAT ONE Administration Pantoprazole Sodium Confirm 05/08/22 04:31 Pantoprazole 40 Mg Vial Administered 05/08/22 04:32 Dose 40 mg IV .STK-MED ONE Lab/Rad Data: Laboratory Result Diagrams 05/08/22 04:30 05/08/22 04:30 Laboratory Results 05/08/22 05/08/22 05/08/22 Range/Units 04:36 04:30 04:30 WBC 10.8 H (4.0-10.5) x10^3/uL RBC 4.77 (4.1-5.4) x10^6/uL Hgb 13.6 (12.0-16.0) g/dL Hct 41.2 (35-47) % MCV 86.4 (78-100) fL MCH 28.5 (26-32) pg MCHC 33.0 (32-36) g/dL RDW 13.2 (11.5-14.0) % Plt Count 376 (150-450) x10^3/uL MPV 9.1 (7.5-11.0) fL Gran % 67.7 H (36.0-66.0) % Immature Gran % (Auto) 0.2 (0.00-0.4) % Nucleat RBC Rel Count 0.0 (0.00-0.1) % Eos # (Auto) 0.17 (0-0.5) x10^3/uL Immature Gran # (Auto) 0.02 (0.00-0.03) x10^3u/L Absolute Lymphs (auto) 2.67 (1.0-4.6) x10^3/uL Absolute Monos (auto) 0.56 (0.0-1.3) x10^3/uL Absolute Nucleated RBC 0.00 (0.00-0.01) x10^3u/L Lymphocytes % 24.8 (24.0-44.0) % Monocytes % 5.2 (0.0-12.0) % Eosinophils % 1.6 (0.00-5.0) % Basophils % 0.5 (0.0-0.4) % Absolute Granulocytes 7.29 H (1.4-6.9) x10^3/uL Basophils # 0.05 (0-0.4) x10^3/uL Sodium 138 (137-145) mmol/L Potassium 4.2 (3.5-5.1) mmol/L Chloride 104 (98-107) mmol/L Carbon Dioxide 27 (22-30) mmol/L Anion Gap 11.0 (5-15) MEQ/L BUN 9 (7-17) mg/dL Creatinine 0.55 (0.52-1.04) mg/dL Estimated GFR > 60.0 ML/MIN Glucose 136 H (74-106) mg/dL Lactic Acid (0.4-2.0) Calcium 8.9 (8.4-10.2) mg/dL Total Bilirubin 1.00 (0.2-1.3) mg/dL AST 31 (14-36) U/L ALT 37 H (0-35) U/L Alkaline Phosphatase 115 (38-126) U/L Serum Total Protein 7.0 (6.3-8.2) g/dL Albumin 4.1 (3.5-5.0) g/dL Amylase 54 (30-110) U/L Lipase 84 (23-300) U/L Urinalys Dipstick Clnc Urine Color (YELLOW) Urine Appearance (CLEAR) Urine pH (5-6) Ur Specific [place] (1.005-1.025) POC Urine Protein Conf (Negative) Urine Ketones (NEGATIVE) Urine Nitrite (NEGATIVE) Urine Bilirubin (NEGATIVE) Urine Urobilinogen (0-1) mg/dL Urine Leukocytes (NEGATIVE) Urine WBC (Auto) (0-5) /HPF Urine RBC (Auto) (0-2) /HPF U Hyaline Cast (Auto) (0-2) /LPF U Epithel Cells (Auto) (FEW) /HPF Urine Bacteria (Auto) (NEGATIVE) /HPF Urine RBC (0-5) Raghav/ul Other Casts (Auto) (NEGATIVE) /LPF Urine Mucus (Auto) (NEGATIVE) /HPF Ur Culture Indicated? Urine Glucose (NEGATIVE) mg/dL Urine HCG, Qual (Negative) Influenza Type A Ag NEGATIVE (NEGATIVE) Influenza Type B Ag NEGATIVE (NEGATIVE) RSV (PCR) NEGATIVE (Negative) SARS-CoV-2 (PCR) NEGATIVE (NEGATIVE) 05/08/22 05/08/22 05/08/22 Range/Units 04:27 04:22 04:22 WBC (4.0-10.5) x10^3/uL RBC (4.1-5.4) x10^6/uL Hgb (12.0-16.0) g/dL Hct (35-47) % MCV (78-100) fL MCH (26-32) pg MCHC (32-36) g/dL RDW (11.5-14.0) % Plt Count (150-450) x10^3/uL MPV (7.5-11.0) fL Gran % (36.0-66.0) % Immature Gran % (Auto) (0.00-0.4) % Nucleat RBC Rel Count (0.00-0.1) % Eos # (Auto) (0-0.5) x10^3/uL Immature Gran # (Auto) (0.00-0.03) x10^3u/L Absolute Lymphs (auto) (1.0-4.6) x10^3/uL Absolute Monos (auto) (0.0-1.3) x10^3/uL Absolute Nucleated RBC (0.00-0.01) x10^3u/L Lymphocytes % (24.0-44.0) % Monocytes % (0.0-12.0) % Eosinophils % (0.00-5.0) % Basophils % (0.0-0.4) % Absolute Granulocytes (1.4-6.9) x10^3/uL Basophils # (0-0.4) x10^3/uL Sodium (137-145) mmol/L Potassium (3.5-5.1) mmol/L Chloride (98-107) mmol/L Carbon Dioxide (22-30) mmol/L Anion Gap (5-15) MEQ/L BUN (7-17) mg/dL Creatinine (0.52-1.04) mg/dL Estimated GFR ML/MIN Glucose (74-106) mg/dL Lactic Acid 1.1 (0.4-2.0) Calcium (8.4-10.2) mg/dL Total Bilirubin (0.2-1.3) mg/dL AST (14-36) U/L ALT (0-35) U/L Alkaline Phosphatase (38-126) U/L Serum Total Protein (6.3-8.2) g/dL Albumin (3.5-5.0) g/dL Amylase (30-110) U/L Lipase (23-300) U/L Urinalys Dipstick Clnc MAIN LAB Urine Color DARK YELLOW (YELLOW) Urine Appearance CLEAR (CLEAR) Urine pH 5.5 (5-6) Ur Specific [place] >=1.030 (1.005-1.025) POC Urine Protein Conf 30 (Negative) Urine Ketones NEGATIVE (NEGATIVE) Urine Nitrite NEGATIVE (NEGATIVE) Urine Bilirubin NEGATIVE (NEGATIVE) Urine Urobilinogen 0.2 (0-1) mg/dL Urine Leukocytes NEGATIVE (NEGATIVE) Urine WBC (Auto) 0-2 (0-5) /HPF Urine RBC (Auto) 0-2 (0-2) /HPF U Hyaline Cast (Auto) 3-5 (0-2) /LPF U Epithel Cells (Auto) RARE (FEW) /HPF Urine Bacteria (Auto) NONE SEEN (NEGATIVE) /HPF Urine RBC NEGATIVE (0-5) Raghav/ul Other Casts (Auto) NEGATIVE (NEGATIVE) /LPF Urine Mucus (Auto) SLIGHT (NEGATIVE) /HPF Ur Culture Indicated? NO Urine Glucose NEGATIVE (NEGATIVE) mg/dL Urine HCG, Qual NEGATIVE (Negative) Influenza Type A Ag (NEGATIVE) Influenza Type B Ag (NEGATIVE) RSV (PCR) (Negative) SARS-CoV-2 (PCR) (NEGATIVE) - Progress Progress: improved, pain not gone completely, re-examined Counseled pt/family regarding: lab results, diagnosis, need for follow-up, rad results - Progress Progress Note: 05/08/22 06:40 Patient states that she is feeling better. She has some mild nausea but that is much better than before. Her abdominal cramping is improving. We have checked a couple times with radiology and nighttime radiology service is on slow time which generally means prolonged time before we get our CAT scans read. I discussed this with the patient. Patient care is being transferred to Dr. Ballard at shift change. He will follow- up on the lab and radiographic study results and make final disposition. (LEONARDO MOROCHO) 05/08/22 08:06 Patient is checked out to me at shift change from Dr. Morocho with pending CT abdomen pelvis. On my evaluation patient is complaining of mild nausea but no abdominal cramping at all. No vomiting or diarrhea episodes since she has been in here. I reviewed lab which seems unremarkable. If CT is negative patient will be discharged and Dr. Morocho has already sent prescription of Zofran/Pepcid which she is advised to take. 05/08/22 08:21 CT abdomen pelvis is negative. She is being discharged with outpatient follow- up. Discussed signs symptoms of worsening needing return to ER which she seems understanding. (MYRNA BALLARD) - Departure Departure Disposition: Home Critical Care Time: No - Departure Clinical Impression: Abdominal pain, Vomiting and diarrhea Condition: Stable Referrals: RIKI SEARS [Primary Care Provider] - Follow up/PCP as directed Additional Instructions: Drink plenty of clear liquids before advancing diet. Take your medication as prescribed. Follow-up with your primary care physician for further evaluation and management. Prescriptions: Ondansetron ODT 4 MG [Zofran Odt 4 mg] 4 mg PO Q6H PRN PRN #10 tablet PRN Reason: Vomiting Famotidine 20 mg [Pepcid 20 MG] 20 mg PO DAILY #10 tablet
[2022-05-08] MEDS ORDERED: Sodium Chloride 0.9% 1000 ML 1,000 ML ONE ×2 (04:31→05:47)
[2022-05-08] MEDS ORDERED: Zofran 4 MG/2 ML VIAL ONE (04:31)
[2022-05-08] MEDS ORDERED: Hydromorphone 1 mg/ml Injection ONE (04:31)
[2022-05-08 04:33] LABS: Absolute Neutrophil Ct (ANC) 7.29 x10^3/uL (1.4-6.9); Basophil (Absolute #) 0.05 x10^3/uL (0-0.4); Eosinophil % 1.6 % (0.00-5.0); Eosinophil (Absolute #) 0.17 x10^3/uL (0-0.5); Hematocrit 41.2 % (35-47); Hemoglobin 13.6 g/dL (12.0-16.0); Lymphocyte (Absolute #) 2.67 x10^3/uL (1.0-4.6); Lymphocytes % 24.8 % (24.0-44.0); Mean Cell Volume 86.4 fL (78-100); Mean Corpuscular Hemoglobin 28.5 pg (26-32); Mean Platelet Volume 9.1 fL (7.5-11.0); Monocyte (Absolute #) 0.56 x10^3/uL (0.0-1.3); Monocytes % 5.2 % (0.0-12.0); Neutrophil % 67.7 % (36.0-66.0); Platelet Count 376 x10^3/uL (150-450); Red Blood Count 4.77 x10^6/uL (4.1-5.4); Red Cell Distribution Width 13.2 % (11.5-14.0); White Blood Count 10.8 x10^3/uL (4.0-10.5)
[2022-05-08 04:48] LABS: ALBUMIN 4.1 g/dL (3.5-5.0); ALKALINE PHOSPHATASE 115 U/L (38-126); AMYLASE 54 U/L (30-110); BLOOD UREA NITROGEN 9 mg/dL (7-17); CHLORIDE 104 mmol/L (98-107); Calcium 8.9 mg/dL (8.4-10.2); Carbon Dioxide 27 mmol/L (22-30); Creatinine 1 0.55 mg/dL (0.52-1.04); EST GLOMERULAR FILTRATION RATE > 60.0 ML/MIN; Glucose 136 mg/dL (74-106); LIPASE 84 U/L (23-300); Potassium 4.2 mmol/L (3.5-5.1); SGOT/AST 31 U/L (14-36); SGPT/ALT 37 U/L (0-35); SODIUM 138 mmol/L (137-145)
[2022-05-08 04:49] LABS: Epithelial Cells RARE /HPF (FEW); Mucus SLIGHT /HPF (NEGATIVE); RBC 0-2 /HPF (0-2); WBC 0-2 /HPF (0-5)
[2022-05-08 04:50] LABS: Appearance CLEAR (CLEAR); Bacteria NONE SEEN /HPF (NEGATIVE); Bilirubin NEGATIVE (NEGATIVE); Dipstick done @ ? MAIN LAB; Glucose NEGATIVE (NEGATIVE); Ketones NEGATIVE (NEGATIVE); Nitrite NEGATIVE (NEGATIVE); Ph 5.5 (5-6); Protein,Urine Dip 30 (Negative); RBC NEGATIVE Ery/ul (0-5); Specific Gravity >=1.030 (1.005-1.025); Urine Cultured Indicated? NO; Urobilinogen 0.2 mg/dL (0-1)
[2022-05-08 05:15] LABS: INFLUENZA A NEGATIVE (NEGATIVE); INFLUENZA B NEGATIVE (NEGATIVE); RESPIRATORY SYNCTIAL VIRUS NEGATIVE (Negative); SARS-CoV-2 Xpert Express NEGATIVE (NEGATIVE)
[2022-05-08 06:30] VITALS: PULSE 68
[2022-05-08] MEDS ORDERED: Sodium Chloride 0.9% 500 ML 500 ML IV ONE ×2 (06:43→06:45)
[2022-05-08 08:28] VITALS: BP 117/71; O2SAT 98
--- NOTE | 2022-05-08 09:15 | XRAY ---
Indication: Lower abdomen pain. Bloating, nausea, vomiting, diarrhea, and chills. Multiple contiguous axial images obtained through the abdomen and pelvis without contrast. Comparison: None Lung bases clear. Heart not enlarged. Stomach distended with food/fluid. Noncontrasted stomach and bowel loops appear nonobstructed with normal appendix. Previous cholecystectomy. No free fluid/air. Mild diffuse fatty liver and 16.5 cm splenomegaly. Uterus demonstrates IUD in situ. Remaining liver, pancreas, spleen, adrenal glands, kidneys, ureters, bladder, and aorta are unremarkable for noncontrast exam. Osseous structures intact. No ventral or inguinal hernias. Impression: 1. Mild fatty liver, splenomegaly, and IUD in situ. 2. Remaining CT abdomen/pelvis without contrast exam is negative. Comment: Preliminary interpretation made by C. No critical discrepancy.
== END 2022-05-08 08:27 | disposition home or self-care (01) ==
LOC: ED 03:46
DX: R10.84 Generalized abdominal pain (principal); R11.2 Nausea with vomiting, unspecified; R19.7 Diarrhea, unspecified; I10 Essential (primary) hypertension; E11.9 Type 2 diabetes mellitus without complications; Z79.899 Other long term (current) drug therapy; Z28.310 Unvaccinated for COVID-19
CPT/HCPCS: 0241U; 36000; 36415; 74176; 80053; 81015; 81025; 82150; 83605; 83690; 85025; 87040; 96360; 96361; 96374; 96375; 99284; J1170; J2405

== ENCOUNTER 2023-12-19 23:32 | Emergency (ER) | payer BC, MEDICAID ==
[2023-12-19 23:50] VITALS: RESP 16; TEMP 97.7
--- NOTE | 2023-12-20 00:02 | ERPHSYRPT ---
- History of Present Illness Time Seen by Provider: 12/19/23 23:57 Source: patient Exam Limitations: no limitations Patient Subjective Stated Complaint: pt states she had a sharp shooting pain to her lower back Triage Nursing Assessment: pt ambulated into the er; pt is axo x4; c/o back pain; pt states 8/10 pain to lower back; no bruising or deformity present to back; good ROM; skin PDW; no respiratory distress present; vitals wnl Physician History: 28-year-old female presents to our ED for evaluation and treatment of acute on chronic back pain. Patient works at a local [employer]. 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 Patient states her back pain typically improves with Tylenol. Patient's pain has not improved. Pain described as an ache that radiates into her legs. No change in bowel bladder function. No saddle anesthesia. No falls no injuries. Pain rated 8 out of 10. Patient denies fever or recent back procedure. Patient that she is otherwise healthy. She voices no other complaints or concerns at this time. Portions of this note were created with voice recognition technology. There may be grammatical, spelling, punctuation or sound alike errors Timing/Duration: yesterday Severity: moderate Modifying Factors: Improves With: movement Associated Symptoms: denies symptoms Allergies/Adverse Reactions: No Known Drug Allergies Allergy (Verified 12/19/23 23:37) Home Medications: NIFEdipine [Nifedipine ER] 60 mg PO BID 08/14/20 [History] Labetalol HCl 100 mg [Trandate 100 MG] 200 mg PO BID 03/02/21 [History] Ergocalciferol (Vitamin D2) [Vitamin D2] 1 cap PO WEEKLY 12/19/23 [History] Metformin HCl 500 mg [Glucophage 500 MG] 500 mg PO BIDWM 12/19/23 [History] Hx Tetanus, Diphtheria Vaccination/Date Given: No Hx Influenza Vaccination/Date Given: Yes Hx Pneumococcal Vaccination/Date Given: No Immunizations Up to Date: No Travel Risk - International Travel Have you traveled outside of the country in past 3 weeks: No - Emerging Infectious Disease Are you exhibiting symptoms associated with any current EIDs: No - Review of Systems Constitutional: No Symptoms, No Fever, No Chills Eyes: No Symptoms Ears, Nose, & Throat: No Symptoms Respiratory: No Symptoms, No Cough, No Dyspnea Cardiac: No Symptoms, No Chest Pain, No Edema, No Syncope Abdominal/Gastrointestinal: No Symptoms, No Abdominal Pain, No Nausea, No Vomiting, No Diarrhea Genitourinary Symptoms: No Symptoms, No Dysuria Musculoskeletal: No Symptoms, No Back Pain, No Neck Pain Skin: No Symptoms, No Rash Neurological: No Symptoms, No Dizziness, No Focal Weakness, No Sensory Changes Psychological: No Symptoms Endocrine: No Symptoms Hematologic/Lymphatic: No Symptoms Immunological/Allergic: No Symptoms All Other Systems: Reviewed and Negative - Past Medical History Pertinent Past Medical History: Yes Neurological History: Migraines ENT History: No Pertinent History Cardiac History: Hypertension Respiratory History: No Pertinent History Endocrine Medical History: Diabetes Type II, Other Musculoskeletal History: No Pertinent History GI Medical History: Other, Gallbladder Disease History: No Pertinent History, Other Psycho-Social History: No Pertinent History Female Reproductive Disorders: No Pertinent History Other Medical History: GESTASIONAL DIABETES, GALLBLADDER REMOVED, UTI WITH - Past Surgical History Past Surgical History: Yes Neuro Surgical History: No Pertinent History Cardiac: No Pertinent History Respiratory: No Pertinent History Gastrointestinal: Cholecystectomy Genitourinary: No Pertinent History Musculoskeletal: No Pertinent History Female Surgical History: Section, Tubal Ligation - Female History Hx Now: No - Social History Smoking Status: Never smoker Exposure to second hand smoke: No Drug Use: none Patient Lives Alone: No - Nursing Vital Signs Nursing Vital Signs: Initial Vital Signs Temperature 97.7 F 12/19/23 23:41 Pulse Rate 73 12/19/23 23:41 Respiratory Rate 16 12/19/23 23:41 Blood Pressure 133/86 12/19/23 23:41 O2 Sat by Pulse Oximetry 98 12/19/23 23:41 Pain Scale Pain Intensity [Lower Back] 8 Pain Intensity 7 - Physical Exam General Appearance: no apparent distress, alert Eye Exam: PERRL/EOMI, eyes nml inspection Ears, Nose, Throat Exam: normal ENT inspection, moist mucous membranes Neck Exam: normal inspection, non-tender, supple, full range of motion Respiratory Exam: normal breath sounds, lungs clear, airway intact, No respiratory distress Cardiovascular Exam: regular rate/rhythm, normal heart sounds, normal peripheral pulses Gastrointestinal/Abdomen Exam: soft, normal bowel sounds, No tenderness, No mass Back Exam: normal inspection, normal range of motion, other (Tenderness to palpation lumbar spine), No CVA tenderness, No vertebral tenderness Extremity Exam: normal inspection, normal range of motion, pelvis stable Neurologic Exam: alert, oriented x 3, cooperative, normal mood/affect, sensation nml, No motor deficits Skin Exam: normal color, warm, dry, No rash Lymphatic Exam: No adenopathy SpO2 Interpretation: normal SpO2: 98 O2 Delivery: Room Air - Course Nursing assessment & vital signs reviewed: Yes - CT Exams Lumbar Spine CT Interpretation: Tele-radiologist Report (L3-L4 disc bulge L5-S1 disc bulge with mild neuroforaminal narrowing) Ordered Tests: Active Orders 24 hr Category Date Time Status LUMBAR SPINE W/O [CT] Stat Exams 12/19/23 23:54 Completed HCG QUALITATIVE, URINE Stat Lab 12/20/23 00:47 Completed UA W/RFX UR CULTURE Stat Lab 12/20/23 00:23 Completed Medication Summary Discontinued Medications Generic Name Dose Route Start Last Admin Trade Name Freq PRN Reason Stop Dose Admin Dexamethasone Sodium Phosphate 10 mg 12/19/23 23:55 12/20/23 00:20 Dexamethasone Sod Phosphate 10 Mg/Ml IM 12/19/23 23:56 10 mg STAT ONE Administration Dexamethasone Sodium Phosphate Confirm 12/20/23 00:12 Dexamethasone Sod Phosphate 10 Mg/Ml Administered 12/20/23 00:13 Dose 10 mg .ROUTE .STK-MED ONE Ketorolac Tromethamine 60 mg 12/19/23 23:56 12/20/23 00:20 Ketorolac Tromethamine 30 Mg/Ml Inj IM 12/19/23 23:57 60 mg STAT ONE Administration Ketorolac Tromethamine Confirm 12/20/23 00:12 Ketorolac Tromethamine 30 Mg/Ml Inj Administered 12/20/23 00:13 Dose 60 mg .ROUTE .STK-MED ONE Lab/Rad Data: Laboratory Results 12/20/23 12/20/23 Range/Units 00:47 00:23 Urine Color Dark Yellow A (Yellow) Urine Appearance Clear (Clear) Urine pH 5.5 (4.6-8.0) Ur Specific [place] >=1.030 A (1.005-1.030) Urine Protein 30 (Negative) Urine Glucose (UA) Negative (Negative) mg/dL Urine Ketones Negative (Negative) Urine Blood Negative (Negative) Urine Nitrite Negative (Negative) Urine Bilirubin Small A (Negative) Urine Urobilinogen 1.0 A (0.2) mg/dL Ur Leukocyte Esterase Negative (Negative) U Hyaline Cast (Auto) NONE SEEN (0-2) /LPF Urine Microscopic RBC 3-5 (0-5) /HPF Urine Microscopic WBC 0-2 (0-5) /HPF Ur Epithelial Cells Rare (None Seen) /HPF Calcium Oxalate Crystal 11-25 A (None Seen) /HPF Urine Bacteria None Seen (None Seen) /HPF Urine Culture Reflexed NO (NO) Urine HCG, Qual NEGATIVE (NEGATIVE) - Progress Progress: improved Progress Note: 28-year-old female presents emergency department for evaluation of low back pain. Physical exam reveals tenderness along the lumbar spine. UA negative for UTI. test negative. Patient has a disc bulge at L3-L4 and L5-S1. There is mild neuroforaminal narrowing. Patient reassessed. Pain significantly improved. Patient is ready for discharge vital stable. No indication for further workup at this time. Will discharge home. Patient agrees to follow-up with her primary care doctor within 48 hours for evaluation. Portions of this note were created with voice recognition technology. There may be grammatical, spelling, punctuation or sound alike errors Complexity problem addressed is moderate acute complicated. No critical care time. Complexity data reviewed and analyzed is moderate. Test ordered test reviewed results analyzed and correlated clinically with history physical examination. Risk of complication and or risk morbidity/mortality patient management is moderate. Prescription for Toradol forwarded to patient's pharmacy. Vital stable. Time spent to discharge patient approximately 20 minutes. Plan of care established for shared decision making. No social determinants of health present impede follow-up. Portions of this note were created with voice recognition technology. There may be grammatical, spelling, punctuation or sound alike errors 12/20/23 01:34 Counseled pt/family regarding: lab results, diagnosis, need for follow-up, rad results - Departure Departure Disposition: Home Clinical Impression: Back pain, Lumbosacral strain, Disc bulge Condition: Stable Critical Care Time: No Referrals: BABAR ALDANA DO [Primary Care Provider] - Follow up/PCP as directed Additional Instructions: Discharge/Care Plan WAI [facility]NA DEBORAH was seen on 12/20/23 in the Emergency Room. The patient was counseled regarding Diagnosis,Lab results, Imaging studies, need for follow up and when to return to the Emergency Room. Prescriptions given: Discharge Note I have spoken with the patient and/or caregivers. I have explained the patient's condition, diagnosis and treatment plan based on the information available to me at this time. I have answered the patient's and/or caregiver's questions and addressed any concerns. The patient and/or caregivers have as good understanding of the patient's diagnosis, condition and treatment plan as can be expected at this point. The vital signs have been stable. The patient's condition is stable and appropriate for discharge from the emergency department. The patient will pursue further outpatient evaluation with the primary care physician or other designated or consulting physician as outlined in the disch arge instructions. The patient and/or caregivers are agreeable to this plan of care and follow-up instructions have been explained in detail. The patient and/or caregivers have received these instruction. The patient/and or caregivers are aware that any significant change in condition or worsening of symptoms should prompt an immediate return to this or the closest emergency department or call 911. Prescriptions: Ketorolac Trometh 10 mg Tab [TORAdol 10 MG TABLET] 10 mg PO TID 5 Days #15 tablet
[2023-12-20] MEDS ORDERED: DECADRON 10MG INJ. ONE (00:12)
[2023-12-20] MEDS ORDERED: TORAdol 30 mg Injection ONE (00:12)
[2023-12-20] MEDS: DECADRON 10MG INJ. IM ONE (00:20)
[2023-12-20] MEDS: TORAdol 30 mg Injection IM ONE (00:20)
[2023-12-20 01:05] LABS: HCG URINE TEST NEGATIVE (NEGATIVE)
[2023-12-20 01:15] LABS: Appearance Clear (Clear); Bacteria None Seen /HPF (None Seen); Bilirubin Small (Negative); Blood Negative (Negative); Epithelial Cells Rare /HPF (None Seen); Glucose, Urine Negative (Negative); Hyaline Casts NONE SEEN /LPF (0-2); Ketones Negative (Negative); Leukocyte Esterase Negative (Negative); Nitrite Negative (Negative); Ph 5.5 (4.6-8.0); Protein,Urine Dip 30 (Negative); Specific Gravity >=1.030 (1.005-1.030); WBC 0-2 /HPF (0-5)
[2023-12-20 01:16] LABS: ADD URINE CULTURE? NO (NO)
--- NOTE | 2023-12-20 01:17 | XRAY ---
CLINICAL HISTORY: pain COMPARISON: None TECHNIQUE: Multiple axial sections of the lumbar spine were acquired without intravenous contrast administration. Sagittal and coronal reformatted images were obtained. One of the following dose reduction techniques were utilized for this exam: Automated exposure control, adjustment of the mA and/or kV according to patient size, use of iterative reconstruction FINDINGS: Straightening of normal lumbar lordosis, likely due to associated muscle spasm or sprain. The vertebral body heights are maintained. No acute fracture or dislocation. The intervertebral disc spaces are preserved. The posterior elements appear grossly normal. [id number] analysis is as follows At L1-L2: Mild narrowing of intervertebral disc spaces noted. No posterior disc bulge. No neural foraminal or spinal canal narrowing. At L2-L3: Mild narrowing of intervertebral disc spaces noted. No posterior disc bulge. No neural foraminal or spinal canal narrowing. At L3-L4: Minimal 1.5 mm posterior disc bulge is noted without significant neuroforaminal narrowing or spinal canal stenosis. Disc spaces preserved. At L4-L5: No disc space narrowing. No neural foraminal or spinal canal stenosis. At L5-S1: A Schmorl's node with suggestion of elevated periosteum/calcification is seen along the posterosuperior endplate of S1. A 4.5 mm posterior disc bulge is noted with mild narrowing of right neural foramina. Patent left neural foramina. No spinal canal stenosis. Visualized sections of the abdomen demonstrate no acute abnormality. Subtle asymmetric sclerosis is seen along the right aspect of the right SI joint. Unremarkable paraspinal soft tissues. IMPRESSION: 1. No acute vertebral fracture or traumatic subluxation. 2. A Schmorl's node with suggestion of elevated periosteum/calcification is seen along the posterosuperior endplate of S1 with a 4.5 mm posterior disc bulge causing mild narrowing of right neural foramina at L5-S1. 3. Mild disc space narrowing is seen at L1-L2 and L2-L3. 4. Subtle asymmetric right SI joint sclerosis. 5. Consider MRI for further assessment if warranted clinically. 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 Electronically Signed by: Hang Garcia MD. (12/20/2023 01:12:51 EDT)
[2023-12-20 01:38] VITALS: O2SAT 98
[2023-12-20 01:43] VITALS: BP 116/73; PULSE 60
== END 2023-12-20 01:46 | disposition home or self-care (01) ==
LOC: ED 23:32
DX: S39.012A Strain of muscle, fascia and tendon of lower back, initial encounter (principal); M54.50 Low back pain, unspecified; M51.36 Other intervertebral disc degeneration, lumbar region; M51.37 Other intervertebral disc degeneration, lumbosacral region; I10 Essential (primary) hypertension; E11.9 Type 2 diabetes mellitus without complications; Z79.84 Long term (current) use of oral hypoglycemic drugs; Z79.899 Other long term (current) drug therapy
CPT/HCPCS: 72131; 81001; 81025; 96372; 99284; J1100; J1885

== ENCOUNTER 2024-01-01 15:11 | Emergency (ER) | payer BC, MEDICAID ==
[2024-01-01 16:33] VITALS: BP 137/87; PULSE 61; RESP 20; TEMP 97.6; O2SAT 98
[2024-01-01] MEDS ORDERED: TORAdol 30 mg Injection ONE (17:05)
[2024-01-01] MEDS ORDERED: Norflex 60 MG/2 ML ONE (17:05)
[2024-01-01] MEDS: TORAdol 30 mg Injection IM ONE (17:08)
[2024-01-01] MEDS: Norflex 60 MG/2 ML IM ONE (17:08)
--- NOTE | 2024-01-01 17:31 | ERPHSYRPT ---
- History of Present Illness Time Seen by Provider: 01/01/24 16:00 Source: patient Exam Limitations: no limitations Patient Subjective Stated Complaint: Lower back pain Triage Nursing Assessment: Patient ambulated back to ED and transferred self to bed. Patient A+O X3. Patient's skin pink, warm and dry. Patient states she was seen on 12/19/2023 for the same thing and her PCP is scheduling her an MRI and to see a spine dr. Patient states today she was at work and walked upstairs and her pain got worse. Patient complais of lower back pain 01/14 Physician History: 28-year-old female with history of chronic back pain with L5-S1 mild disc bulge and L1-L2/L2/L3 disc space narrowing scheduled to have outpatient MRI presented in the ER with acute worsening of low back pain after she was taking a flight of stairs earlier. Patient reports moderate intensity pain with some radiation to the right lower extremity. She always have radiation to right lower extremity. Patient denies any saddle anesthesia, numbness tingling or weakness of lower extremities. No loss of bowel or bladder control. Denies any direct trauma to the back. Allergies/Adverse Reactions: No Known Drug Allergies Allergy (Verified 01/01/24 16:27) Home Medications: NIFEdipine [Nifedipine ER] 60 mg PO BID 08/14/20 [History] Labetalol HCl 100 mg [Trandate 100 MG] 200 mg PO BID 03/02/21 [History] Ergocalciferol (Vitamin D2) [Vitamin D2] 1 cap PO WEEKLY 12/19/23 [History] Metformin HCl 500 mg [Glucophage 500 MG] 500 mg PO BIDWM 12/19/23 [History] Hx Tetanus, Diphtheria Vaccination/Date Given: No Hx Influenza Vaccination/Date Given: Yes Hx Pneumococcal Vaccination/Date Given: No Immunizations Up to Date: Yes Travel Risk - International Travel Have you traveled outside of the country in past 3 weeks: No - Emerging Infectious Disease Are you exhibiting symptoms associated with any current EIDs: No - Review of Systems Constitutional: No Symptoms Ears, Nose, & Throat: No Symptoms Respiratory: No Symptoms Cardiac: No Symptoms Abdominal/Gastrointestinal: No Symptoms Genitourinary Symptoms: No Symptoms Musculoskeletal: Back Pain Skin: No Symptoms Neurological: No Symptoms Endocrine: No Symptoms - Past Medical History Pertinent Past Medical History: Yes Neurological History: Migraines ENT History: No Pertinent History Cardiac History: Hypertension Respiratory History: No Pertinent History Endocrine Medical History: Diabetes Type II, Other Musculoskeletal History: No Pertinent History GI Medical History: Other, Gallbladder Disease History: No Pertinent History, Other Psycho-Social History: No Pertinent History Female Reproductive Disorders: No Pertinent History Other Medical History: GESTASIONAL DIABETES, GALLBLADDER REMOVED, UTI WITH - Past Surgical History Past Surgical History: Yes Neuro Surgical History: No Pertinent History Cardiac: No Pertinent History Respiratory: No Pertinent History Gastrointestinal: Cholecystectomy Genitourinary: No Pertinent History Musculoskeletal: No Pertinent History Female Surgical History: Section, Tubal Ligation - Female History Hx Last Menstrual Period: mirena Hx Now: No - Social History Smoking Status: Never smoker Exposure to second hand smoke: No Drug Use: none Patient Lives Alone: No - Nursing Vital Signs Nursing Vital Signs: Initial Vital Signs Temperature 97.6 F 01/01/24 16:29 Pulse Rate 61 01/01/24 16:29 Respiratory Rate 20 01/01/24 16:29 Blood Pressure 137/87 01/01/24 16:29 O2 Sat by Pulse Oximetry 98 01/01/24 16:29 Pain Scale Pain Intensity 6 - Physical Exam General Appearance: no apparent distress Eye Exam: PERRL/EOMI Neck Exam: normal inspection, full range of motion Respiratory Exam: normal breath sounds, lungs clear Cardiovascular Exam: regular rate/rhythm, normal heart sounds Gastrointestinal Exam: soft, normal bowel sounds, No tenderness Back Exam: normal inspection, muscle spasm (Mild lower lumbar spinal and paraspinal area tenderness. No step-off deformity. Straight leg raising test positive at 60 degrees on the right. Distal neurovascular intact lower extremities with 2+ symmetric patellar and Achilles reflexes.), point tenderness Extremity Exam: normal inspection, normal range of motion Neurologic Exam: alert, oriented x 3, cooperative Skin Exam: normal color SpO2 Interpretation: normal SpO2: 98 O2 Delivery: Room Air Ordered Tests: Medication Summary Discontinued Medications Generic Name Dose Route Start Last Admin Trade Name Freq PRN Reason Stop Dose Admin Ketorolac Tromethamine 30 mg 01/01/24 17:01 01/01/24 17:08 Ketorolac Tromethamine 30 Mg/Ml Inj IM 01/01/24 17:02 30 mg STAT ONE Administration Ketorolac Tromethamine Confirm 01/01/24 17:05 Ketorolac Tromethamine 30 Mg/Ml Inj Administered 01/01/24 17:06 Dose 30 mg .ROUTE .STK-MED ONE Orphenadrine Citrate 60 mg 01/01/24 17:01 01/01/24 17:08 Orphenadrine Citrate 60 Mg/2 Ml Vial IM 01/01/24 17:02 60 mg STAT ONE Administration Orphenadrine Citrate Confirm 01/01/24 17:05 Orphenadrine Citrate 60 Mg/2 Ml Vial Administered 01/01/24 17:06 Dose 60 mg .ROUTE .STK-MED ONE - Progress Progress: improved Progress Note: 01/01/24 17:29 28-year-old female is evaluated for acute on chronic low back pain with some radiation to right lower extremity. She has negative neuro exam in lower extremities, no sign symptoms suggesting cauda equina. Do not think she needs imaging or workup today. She is given symptomatic treatment with Toradol and Norflex, on reevaluation her pain is better. I will continue with ibuprofen and Flexeril to go home and outpatient follow-up recommended. She is encouraged to keep her MRI appointment. Discussed signs symptoms of worsening needing return to ER which she seems understanding. Stable for discharge. 01/01/24 17:30 Counseled pt/family regarding: diagnosis, need for follow-up Medical Desision Making - Risk of complications The pt has a mod risk of morbidity or mortality based on: Need for prescription drug management - Departure Departure Disposition: Home Clinical Impression: Acute exacerbation of chronic low back pain Condition: Stable Critical Care Time: No Referrals: BABAR ALDANA DO [Primary Care Provider] - Follow up with PCP 1 day Instructions: Sciatica (DC), Low Back Pain (DC) Additional Instructions: Take Tylenol/ibuprofen as needed. Follow-up with your primary care for reevaluation. Keep appointment for MRI. Return to ER for intractable pain, numbness tingling weakness of lower extremity, perineal numbness or if loss of bowel or bladder control etc. Prescriptions: Ibuprofen 600 mg PO Q6HPRN PRN 10 Days #20 tablet PRN Reason: Pain Cyclobenzaprine HCl 10 mg [Flexeril 10 MG] 10 mg PO TID #12 tablet
== END 2024-01-01 17:50 | disposition home or self-care (01) ==
LOC: ED 15:11
DX: G89.29 Other chronic pain (principal); M54.50 Low back pain, unspecified; E11.9 Type 2 diabetes mellitus without complications; I10 Essential (primary) hypertension; Z79.84 Long term (current) use of oral hypoglycemic drugs; Z79.899 Other long term (current) drug therapy
CPT/HCPCS: 96372; 99283; J1885; J2360

== ENCOUNTER 2024-01-08 12:20 | Emergency (ER) | payer BC, MEDICAID ==
--- NOTE | 2024-01-08 13:47 | XRAY ---
Indication: Paresthesia. No known injury. Multiple contiguous images obtained through the cervical spine. Sagittal and coronal reformatted images obtained. Comparison: None Normal bones, articulation, and noncontrasted soft tissues. Impression: Normal CT cervical spine.
--- NOTE | 2024-01-08 13:51 | XRAY ---
Indication: Paresthesia. No known injury. Multiple contiguous axial images obtained through the lumbar spine. Sagittal and coronal reformatted images obtained. Comparison: December 20, 2023 Axial images demonstrate stable mild broad-based right lateral disc bulge at L5-S1 level with subsequent right foraminal narrowing. Remaining levels again negative for large disc herniation or spinal canal stenosis. Facets symmetric. Sagittal and coronal reformatted images again demonstrate normal alignment with minimal L5-S1 disc space narrowing. No acute compression fracture or subluxation. Visualized noncontrasted soft tissues again demonstrates nonobstructing right renal micro-calculi. Impression: No change compared to ER CT L-spine exam 3 weeks ago. Stable L5-S1 right lateral broad-based disc bulge with right foraminal narrowing. Again incidental nonobstructing right renal micro-calculi. No new/acute abnormalities.
[2024-01-08 14:27] VITALS: RESP 16; O2SAT 98
[2024-01-08] MEDS ORDERED: Kenalog-40 ONE (14:32)
--- NOTE | 2024-01-08 14:35 | ERPHSYRPT ---
- History of Present Illness Time Seen by Provider: 01/08/24 12:45 Source: patient Exam Limitations: no limitations Patient Subjective Stated Complaint: C/O Low back pain. Patient states she had low back pain for over 3 years (since her with her son) but indicates that her pain has been different over the past 2 days with some new symptoms. Patient states she has an MRI scheduled near the middle of this month related to her back pain issues. She denies any recent falls, injuries, or traumas. Triage Nursing Assessment: Patient ambulated back to ER without difficulties. She is alert and oriented. No SOB. Skin tone normal. HURTADO WNL. No skin alterations noted to reported areas of pain. Physician History: Patient is a 28-year-old white female presents for her third visit and approximately 3 weeks with a complaint of pain in her lower back radiated to the legs and now new paresthesias in both forearms. She has had a CT of the lumbar spine on 18 December and she alsoScheduled for an MRI. Timing/Duration: week(s) (3) Severity: moderate Modifying Factors: Improves With: movement, ibuprofen Allergies/Adverse Reactions: No Known Drug Allergies Allergy (Verified 01/08/24 12:29) Home Medications: NIFEdipine [Nifedipine ER] 60 mg PO DAILY 08/14/20 [History] Labetalol HCl 100 mg [Trandate 100 MG] 200 mg PO BID 03/02/21 [History] Ergocalciferol (Vitamin D2) [Vitamin D2] 1 cap PO WEEKLY 12/19/23 [History] Metformin HCl 500 mg [Glucophage 500 MG] 500 mg PO BIDWM 12/19/23 [History] Hx Tetanus, Diphtheria Vaccination/Date Given: Yes Hx Influenza Vaccination/Date Given: Yes Hx Pneumococcal Vaccination/Date Given: No Immunizations Up to Date: Yes Travel Risk - International Travel Have you traveled outside of the country in past 3 weeks: No - Emerging Infectious Disease Are you exhibiting symptoms associated with any current EIDs: No - Review of Systems Constitutional: No Fever, No Chills Eyes: No Symptoms Ears, Nose, & Throat: No Symptoms Respiratory: No Cough, No Dyspnea Cardiac: No Chest Pain, No Edema, No Syncope Abdominal/Gastrointestinal: No Abdominal Pain, No Nausea, No Vomiting, No Diarrhea Genitourinary Symptoms: No Dysuria Musculoskeletal: No Back Pain, No Neck Pain Skin: No Rash Neurological: Parasthesia, No Dizziness, No Focal Weakness, No Sensory Changes Psychological: No Symptoms Endocrine: No Symptoms All Other Systems: Reviewed and Negative - Past Medical History Pertinent Past Medical History: Yes Neurological History: Migraines ENT History: No Pertinent History Cardiac History: Hypertension Respiratory History: No Pertinent History Endocrine Medical History: Diabetes Type II, Other Musculoskeletal History: No Pertinent History GI Medical History: Other, Gallbladder Disease History: No Pertinent History, Other Psycho-Social History: No Pertinent History Female Reproductive Disorders: No Pertinent History Other Medical History: GESTASIONAL DIABETES - Past Surgical History Past Surgical History: Yes Neuro Surgical History: No Pertinent History Cardiac: No Pertinent History Respiratory: No Pertinent History Gastrointestinal: Cholecystectomy Genitourinary: No Pertinent History Musculoskeletal: No Pertinent History Female Surgical History: Section, Tubal Ligation Other Surgical History: states tubes have been removed - Female History Hx Now: No - Social History Smoking Status: Never smoker Exposure to second hand smoke: No Drug Use: none Patient Lives Alone: No - Social Determinants of Health Will the patient participate in the screening: Yes Do you worry about a steady place to live?: No Do you have any problems with any of the following?: No known problems In the past 12 months,have you had to go without utilities?: No Transportation Issues: No Has anyone in your support network made you feel unsafe?: No Have you or anyone in your house had to go without enough: No - Nursing Vital Signs Nursing Vital Signs: Initial Vital Signs Pulse Rate 81 01/08/24 12:34 Respiratory Rate 22 01/08/24 12:34 Blood Pressure 114/71 01/08/24 12:34 O2 Sat by Pulse Oximetry 97 01/08/24 12:34 Pain Scale Pain Intensity 6 - Physical Exam General Appearance: mild distress, alert Eye Exam: PERRL/EOMI, eyes nml inspection Ears, Nose, Throat Exam: normal ENT inspection, TMs normal, pharynx normal, moist mucous membranes Neck Exam: normal inspection, non-tender, supple, full range of motion Respiratory Exam: normal breath sounds, lungs clear, No respiratory distress Cardiovascular Exam: regular rate/rhythm, normal heart sounds, normal peripheral pulses Gastrointestinal/Abdomen Exam: soft, normal bowel sounds, No tenderness, No mass Back Exam: normal inspection, normal range of motion, No CVA tenderness, No vertebral tenderness Extremity Exam: normal inspection, normal range of motion, pelvis stable Neurologic Exam: alert, oriented x 3, cooperative, normal mood/affect, nml cerebellar function, nml station & gait, sensation nml, No motor deficits Skin Exam: normal color, warm, dry, No rash Lymphatic Exam: No adenopathy SpO2: 98 - Course Nursing assessment & vital signs reviewed: Yes - CT Exams Cervical Spine CT Interpretation: Negative, Other (Reviewed by ED physician) Lumbar Spine CT Interpretation: Other (Reviewed by ED physician this test was repeated because of change in symptomatology including paresthesias in the lower back and down the legs.) Ordered Tests: Active Orders 24 hr Category Date Time Status CERVICAL SPINE WO CONTRAST [CT] Stat Exams 01/08/24 12:47 Completed LUMBAR SPINE W/O [CT] Stat Exams 01/08/24 12:47 Completed Medication Summary Generic Name Dose Route Start Last Admin Trade Name Freq PRN Reason Stop Dose Admin Ketorolac Tromethamine 60 mg 01/08/24 14:30 Ketorolac Tromethamine 30 Mg/Ml Inj IM 01/08/24 14:31 STAT ONE Discontinued Medications Generic Name Dose Route Start Last Admin Trade Name Freq PRN Reason Stop Dose Admin Triamcinolone Acetonide 40 mg 01/08/24 14:30 Triamcinolone Acetonide 40 Mg/Ml Ml IM 01/08/24 14:31 STAT ONE - Progress Progress: unchanged Medical Desision Making - Diagnostic Testing Radiological Interpretation: Reviewed by me - Risk of complications Low Risk: Low risk of morbidity from additional dx testing or treatment - Departure Departure Disposition: Home Clinical Impression: Paresthesias Condition: Stable Critical Care Time: No Referrals: BABAR ALDANA DO [Primary Care Provider] - Follow up/PCP as directed
[2024-01-08] MEDS: Kenalog-40 IM ONE (14:36)
[2024-01-08] MEDS ORDERED: TORAdol 30 mg Injection ONE (14:37)
[2024-01-08] MEDS: TORAdol 30 mg Injection IM ONE (14:38)
[2024-01-08 14:51] VITALS: BP 112/68; PULSE 70
== END 2024-01-08 14:52 | disposition home or self-care (01) ==
LOC: ED 12:20
DX: R20.2 Paresthesia of skin (principal); M54.50 Low back pain, unspecified; I10 Essential (primary) hypertension; E11.9 Type 2 diabetes mellitus without complications; Z79.84 Long term (current) use of oral hypoglycemic drugs; Z79.899 Other long term (current) drug therapy
CPT/HCPCS: 72125; 72131; 96372; 99284; J1885; J3301

== ENCOUNTER 2024-05-08 12:18 | Day surgery (SDC) | payer BC, MEDICAID ==
[2024-05-08] MEDS ORDERED: Depo-Medrol 40 MG/ML IM ONE (12:19)
[2024-05-08] MEDS ORDERED: BUPIVACAINE 0.5% VIAL IJ ONE (12:19)
[2024-05-08 12:33] LABS: HCG URINE TEST NEGATIVE (NEGATIVE)
[2024-05-08] MEDS ORDERED: DIPRIVAN 200 MG/20 ML IV ONE (14:04)
[2024-05-08] MEDS ORDERED: Lactated Ringers 1,000 ML IV ONE (14:48)
--- NOTE | 2024-05-08 14:50 | XRAY ---
Indication: Bilateral SI joint injection. Intraoperative fluoroscopy provided for 21 seconds. 2 digital spot images submitted for interpretation demonstrates posterior needle tips projecting over left and right SI joints. Small amount of contrast was injected for both needle tip placement. Correlate with intraoperative findings/report.
--- NOTE | 2024-05-08 15:01 | XRAY ---
21 seconds of fluoroscopy was used in surgery for a bilateral sacroiliac joint injection.
== END 2024-05-08 14:33 | disposition home or self-care (01) ==
LOC: SDC-PAIN 12:18
PROVIDERS: ATTEND Psychiatry & Neurology Pain Medicine
DX: M46.1 Sacroiliitis, not elsewhere classified (principal)
CPT/HCPCS: 27096; 72202; 77002; 81025; J2704; Q9966; G0260

== ENCOUNTER 2024-07-18 10:37 | Day surgery (SDC) | payer BC ==
[2024-07-18] MEDS ORDERED: BUPIVACAINE 0.5% VIAL IJ ONE (10:38)
[2024-07-18] MEDS ORDERED: LIDOCAINE HCL 1% AMPUL 5 ML IJ ONE (10:38)
[2024-07-18] MEDS ORDERED: Depo-Medrol 40 MG/ML IM ONE (10:38)
[2024-07-18 11:35] LABS: HCG URINE TEST NEGATIVE (NEGATIVE)
[2024-07-18] MEDS ORDERED: DIPRIVAN 200 MG/20 ML IV ONE ×2 (12:45→12:59)
--- NOTE | 2024-07-18 13:55 | XRAY ---
Indication: Bilateral hip injection. Intraoperative fluoroscopy provided for 1 minute 2 seconds. 2 digital spot image submitted for interpretation demonstrates needle tip lateral to left/right femur necks. Small amount of contrast injected for needle tip placement. Correlate with intraoperative findings/report.
--- NOTE | 2024-07-18 14:45 | XRAY ---
One minute and 2 seconds of fluoroscopy was used in surgery for a bilateral intra-articular hip injection.
== END 2024-07-18 13:26 | disposition home or self-care (01) ==
LOC: SDC 10:37
PROVIDERS: ATTEND Psychiatry & Neurology Pain Medicine
DX: M16.0 Bilateral primary osteoarthritis of hip (principal)
CPT/HCPCS: 20610; 73521; 77002; 81025; J2704; Q9966

== ENCOUNTER 2024-09-16 18:14 | Emergency (ER) | payer BC ==
--- NOTE | 2024-09-16 20:23 | ERPHSYRPT ---
- History of Present Illness Time Seen by Provider: 09/16/24 20:23 Historian: patient, family Exam Limitations: no limitations Physician History: This is an obese 28-year-old white female patient of Dr. Aldana who arrives by private vehicle with a complaint of headache, body aches, sore throat, mild cough and intermittent vomiting and diarrhea for the last 6 days. She also complains of some sinus pressure. Patient states that she was seen on 09/14/2024 and had a negative strep test. No other swabs were performed per her report. Patient was placed on amoxicillin. She has taken this for approximately 2 days and her sore throat is slightly improving. Patient has a history of migraine headache, hypertension and type 2 diabetes. Patient denies chest pain. Timing/Duration: day(s) (6), worse Severity of Pain-Max: none Severity of Pain-Current: none Modifying Factors: Improves With: coughing, vomiting Associated Symptoms: diarrhea, loss of appetite, nausea, vomiting Previous symptoms: no prior history, recently seen Allergies/Adverse Reactions: No Known Drug Allergies Allergy (Verified 01/08/24 12:29) Home Medications: NIFEdipine [Nifedipine ER] 60 mg PO DAILY 08/14/20 [History] Labetalol HCl 100 mg [Trandate 100 MG] 200 mg PO BID 03/02/21 [History] Ergocalciferol (Vitamin D2) [Vitamin D2] 1 cap PO WEEKLY 12/19/23 [History] Metformin HCl 500 mg [Glucophage 500 MG] 500 mg PO BIDWM 12/19/23 [History] Amoxicillin 500 mg PO TID 09/16/24 [History] Hx Tetanus, Diphtheria Vaccination/Date Given: Yes Hx Influenza Vaccination/Date Given: Yes Hx Pneumococcal Vaccination/Date Given: No Travel Risk - International Travel Have you traveled outside of the country in past 3 weeks: No - Emerging Infectious Disease Are you exhibiting symptoms associated with any current EIDs: Yes Symptoms: Cough: New Onset, Headaches/Body Aches/, Other (Please Comment) (Sore throat) - Review of Systems Constitutional: No Symptoms Eyes: No Symptoms Ears, Nose, & Throat: Throat Pain Respiratory: Cough Cardiac: No Symptoms Abdominal/Gastrointestinal: Vomiting, Diarrhea, Appetite Changes Genitourinary Symptoms: No Symptoms Musculoskeletal: Arthralgias, Myalgias Skin: No Symptoms Neurological: No Symptoms Psychological: No Symptoms Endocrine: No Symptoms Hematologic/Lymphatic: No Symptoms Immunological/Allergic: No Symptoms All Other Systems: Reviewed and Negative - Past Medical History Pertinent Past Medical History: Yes Neurological History: Migraines ENT History: No Pertinent History Cardiac History: Hypertension Respiratory History: No Pertinent History Endocrine Medical History: Diabetes Type II, Other Musculoskeletal History: No Pertinent History GI Medical History: Other, Gallbladder Disease History: No Pertinent History, Other Psycho-Social History: No Pertinent History Female Reproductive Disorders: No Pertinent History Other Medical History: GESTASIONAL DIABETES - Past Surgical History Past Surgical History: Yes Neuro Surgical History: No Pertinent History Cardiac: No Pertinent History Respiratory: No Pertinent History Gastrointestinal: Cholecystectomy Genitourinary: No Pertinent History Musculoskeletal: No Pertinent History Female Surgical History: Section, Tubal Ligation Other Surgical History: states tubes have been removed - Social History Smoking Status: Never smoker Exposure to second hand smoke: No Drug Use: none Patient Lives Alone: No - Social Determinants of Health Will the patient participate in the screening: Yes Do you worry about a steady place to live?: No In the past 12 months,have you had to go without utilities?: No Transportation Issues: No Has anyone in your support network made you feel unsafe?: No Have you or anyone in your house had to go without enough: No - Nursing Vital Signs Nursing Vital Signs: Initial Vital Signs Temperature 96.7 F 09/16/24 20:22 Pulse Rate 64 09/16/24 20:22 Respiratory Rate 18 09/16/24 20:22 Blood Pressure 139/98 09/16/24 20:22 O2 Sat by Pulse Oximetry 96 09/16/24 20:22 Pain Scale Pain Intensity 6 - Physical Exam General Appearance: no apparent distress, alert, anxiety, obese Eye Exam: PERRL/EOMI, eyes nml inspection Ears, Nose, Throat Exam: TMs normal, moist mucous membranes, pharyngeal erythema (Mild) Neck Exam: normal inspection, non-tender, supple, full range of motion Respiratory Exam: normal breath sounds, lungs clear, airway intact, No chest tenderness, No respiratory distress Cardiovascular Exam: regular rate/rhythm, normal heart sounds, normal peripheral pulses Gastrointestinal/Abdomen Exam: soft, normal bowel sounds, No tenderness Pelvic Exam: not done Rectal Exam: not done Back Exam: normal inspection, normal range of motion, No CVA tenderness, No vertebral tenderness Extremity Exam: normal inspection, normal range of motion, pelvis stable Neurologic Exam: alert, oriented x 3, 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, 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, nml cerebellar function, nml station & gait, sensation nml Skin Exam: normal color, warm, dry Lymphatic Exam: No adenopathy SpO2 Interpretation: normal O2 Delivery: Room Air - Course Nursing assessment & vital signs reviewed: Yes Ordered Tests: Active Orders 24 hr Category Date Time Status IV Insertion STAT Care 09/16/24 21:06 Active Pulse Oximetry (ED) STAT Care 09/16/24 21:06 Active CBC W DIFF Stat Lab 09/16/24 21:06 Completed CMP Stat Lab 09/16/24 21:15 Completed CULTURE,URINE Stat Lab 09/16/24 21:11 Received HCG QUALITATIVE, URINE Stat Lab 09/16/24 21:20 Completed MONO SCREEN Stat Lab 09/16/24 21:20 Completed UA W/RFX UR CULTURE Stat Lab 09/16/24 21:11 Completed Medication Summary Generic Name Dose Route Start Last Admin Trade Name Fremoniqeu PRN Reason Stop Dose Admin Ceftriaxone Sodium 1 gm in 100 mls @ 200 mls/hr 09/16/24 22:17 09/16/24 22:23 Rocephin 1 Gm / 100 Ml Nacl IV 09/16/24 22:46 200 mls/hr STAT ONE 200 mls/hr Administration Discontinued Medications Generic Name Dose Route Start Last Admin Trade Name Freq PRN Reason Stop Dose Admin Sodium Chloride 1,000 mls @ 999 mls/hr 09/16/24 21:06 09/16/24 22:18 Sodium Chloride 0.9% 1000 Ml IV 09/16/24 22:06 Infused .Q1H1M STA Infusion Sodium Chloride Confirm 09/16/24 21:11 Sodium Chloride 0.9% 1000 Ml Administered 09/16/24 21:12 Dose 1,000 mls @ ud .ROUTE .STK-MED ONE Ceftriaxone Sodium Confirm 09/16/24 22:22 Rocephin 1 Gm / 100 Ml Nacl Administered 09/16/24 22:23 Dose 1 gm in 100 mls @ ud IV .STK-MED ONE Ondansetron HCl 4 mg 09/16/24 21:06 09/16/24 21:14 Ondansetron Hcl 4 Mg/2 Ml Vial IV 09/16/24 21:07 4 mg STAT STA Administration Ondansetron HCl Confirm 09/16/24 21:11 Ondansetron Hcl 4 Mg/2 Ml Vial Administered 09/16/24 21:12 Dose 4 mg .ROUTE .[facility] ONE Lab/Rad Data: Laboratory Result Diagrams 09/16/24 21:06 09/16/24 21:15 Laboratory Results 09/16/24 09/16/24 09/16/24 Range/Units 21:30 21:20 21:15 WBC (3.98-10.04) x10^3/uL RBC (3.93-5.22) x10^6/uL Hgb (11.2-15.7) g/dL Hct (34.1-44.9) % MCV (79.4-94.8) fL MCH (25.6-32.2) pg MCHC (32.2-35.5) g/dL RDW (11.7-14.4) % Plt Count (182-369) x10^3/uL MPV (9.4-12.3) fL Gran % (34.0-71.1) % Immature Gran % (Auto) (0.001-0.429) % Nucleat RBC Rel Count (0.00-0.2) % Eos # (Auto) (0.04-0.36) x10^3/uL Immature Gran # (Auto) (0.001-0.031) x10^3u/L Absolute Lymphs (auto) (1.18-3.74) x10^3/uL Absolute Monos (auto) (0.24-0.86) x10^3/uL Absolute Nucleated RBC (0.00-0.012) x10^3u/L Lymphocytes % (19.3-51.7) % Monocytes % (4.7-12.5) % Eosinophils % (0.7-5.8) % Basophils % (0.1-1.2) % Absolute Granulocytes (1.56-6.13) x10^3/uL Basophils # (0.01-0.08) x10^3/uL Sodium 140 (135-145) mmol/L Potassium 3.5 (3.5-5.1) mmol/L Chloride 101 (98-107) mmol/L Carbon Dioxide 28 (22-30) mmol/L Anion Gap 13.7 (5-15) MEQ/L BUN 9 (7-17) mg/dL Creatinine 0.67 (0.52-1.04) mg/dL Estimated GFR 121.3 ML/MIN Glucose 88 (74-106) mg/dL Calcium 9.5 (8.4-10.2) mg/dL Total Bilirubin 1.60 H (0.2-1.3) mg/dL AST 45 H (14-36) U/L ALT 52 H (0-35) U/L Alkaline Phosphatase 76 (38-126) U/L Serum Total Protein 8.1 (6.3-8.2) g/dL Albumin 4.8 (3.5-5.0) g/dL Urine Color (Yellow) Urine Appearance (Clear) Urine pH (4.6-8.0) Ur Specific [place] (1.005-1.030) Urine Protein (Negative) Urine Glucose (UA) (Negative) mg/dL Urine Ketones (Negative) Urine Blood (Negative) Urine Nitrite (Negative) Urine Bilirubin (Negative) Urine Urobilinogen (0.2) mg/dL Ur Leukocyte Esterase (Negative) U Hyaline Cast (Auto) (0-2) /LPF Urine Microscopic RBC (0-5) /HPF Urine Microscopic WBC (0-5) /HPF Ur Epithelial Cells (None Seen) /HPF Urine Bacteria (None Seen) /HPF Urine Mucus (NEGATIVE) /HPF Urine Culture Reflexed (NO) Urine HCG, Qual NEGATIVE (NEGATIVE) Monoscreen NEGATIVE (NEGATIVE) Influenza Type A Ag NEGATIVE (NEGATIVE) Influenza Type B Ag NEGATIVE (NEGATIVE) RSV (PCR) NEGATIVE (NEGATIVE) SARS-CoV-2 (PCR) NEGATIVE (NEGATIVE) 09/16/24 09/16/24 Range/Units 21:11 21:06 WBC 11.6 H (3.98-10.04) x10^3/uL RBC 4.73 (3.93-5.22) x10^6/uL Hgb 13.7 (11.2-15.7) g/dL Hct 40.9 (34.1-44.9) % MCV 86.5 (79.4-94.8) fL MCH 29.0 (25.6-32.2) pg MCHC 33.5 (32.2-35.5) g/dL RDW 12.8 (11.7-14.4) % Plt Count 423 H (182-369) x10^3/uL MPV 9.5 (9.4-12.3) fL Gran % 66.7 (34.0-71.1) % Immature Gran % (Auto) 0.3 (0.001-0.429) % Nucleat RBC Rel Count 0.0 (0.00-0.2) % Eos # (Auto) 0.17 (0.04-0.36) x10^3/uL Immature Gran # (Auto) 0.03 (0.001-0.031) x10^3u/L Absolute Lymphs (auto) 2.93 (1.18-3.74) x10^3/uL Absolute Monos (auto) 0.69 (0.24-0.86) x10^3/uL Absolute Nucleated RBC 0.00 (0.00-0.012) x10^3u/L Lymphocytes % 25.2 (19.3-51.7) % Monocytes % 5.9 (4.7-12.5) % Eosinophils % 1.5 (0.7-5.8) % Basophils % 0.4 (0.1-1.2) % Absolute Granulocytes 7.75 H (1.56-6.13) x10^3/uL Basophils # 0.05 (0.01-0.08) x10^3/uL Sodium (135-145) mmol/L Potassium (3.5-5.1) mmol/L Chloride (98-107) mmol/L Carbon Dioxide (22-30) mmol/L Anion Gap (5-15) MEQ/L BUN (7-17) mg/dL Creatinine (0.52-1.04) mg/dL Estimated GFR ML/MIN Glucose (74-106) mg/dL Calcium (8.4-10.2) mg/dL Total Bilirubin (0.2-1.3) mg/dL AST (14-36) U/L ALT (0-35) U/L Alkaline Phosphatase (38-126) U/L Serum Total Protein (6.3-8.2) g/dL Albumin (3.5-5.0) g/dL Urine Color [place] A (Yellow) Urine Appearance Turbid A (Clear) Urine pH 5.0 (4.6-8.0) Ur Specific [place] >=1.030 A (1.005-1.030) Urine Protein 100 A (Negative) Urine Glucose (UA) Negative (Negative) mg/dL Urine Ketones Negative (Negative) Urine Blood Large A (Negative) Urine Nitrite Positive A (Negative) Urine Bilirubin Moderate A (Negative) Urine Urobilinogen 0.2 (0.2) mg/dL Ur Leukocyte Esterase Small A (Negative) U Hyaline Cast (Auto) 20-50 (0-2) /LPF Urine Microscopic RBC >100 A (0-5) /HPF Urine Microscopic WBC 11-20 A (0-5) /HPF Ur Epithelial Cells Many A (None Seen) /HPF Urine Bacteria Many A (None Seen) /HPF Urine Mucus Many A (NEGATIVE) /HPF Urine Culture Reflexed YES (NO) Urine HCG, Qual (NEGATIVE) Monoscreen (NEGATIVE) Influenza Type A Ag (NEGATIVE) Influenza Type B Ag (NEGATIVE) RSV (PCR) (NEGATIVE) SARS-CoV-2 (PCR) (NEGATIVE) - Progress Progress: improved, re-examined Progress Note: 09/16/24 21:11 My medical decision making and the assignment of moderate complexity to this patient's medical issue today is based on review of the patient's past medical history, review of the patient's medication list, reviewed patient drug allergy list, history present illness and physical findings on examination. The workup in this patient includes placement of a intravenous line, infusion of normal saline solution, infusion of Zofran, CBC, CMP, amylase, lipase, viral swabs, monotest, urinalysis, urine test. Differential diagnosis includes but is not limited to , urinary tract infection, dehydration, viral illness, mononucleosis, electrolyte abnormalities 09/16/24 22:17 I interpreted the patient's laboratory data results. Based on the laboratory data results, the patient has a leukocytosis as well as a significant urinary tract infection. Counseled pt/family regarding: lab results, diagnosis, need for follow-up Medical Desision Making - Diagnostic Testing Diagnostic test were ordered, analyzed, and reviewed by me: Yes - Risk of complications The pt has a mod risk of morbidity or mortality based on: Need for prescription drug management - Departure Departure Disposition: Home Clinical Impression: Leukocytosis, Urinary tract infection, Vomiting Condition: Stable Critical Care Time: No Referrals: BABAR ALDANA DO [Primary Care Provider] - Follow up/PCP as directed Additional Instructions: Drink plenty of clear liquids before advancing your diet. Stop the amoxicillin. Take your new antibiotics as prescribed. Call your primary care provider karin hall, 09/17/2024, to make arranges for follow-up appointment for further evaluation management. Prescriptions: Ondansetron ODT 4 MG [Zofran Odt 4 mg] 4 mg PO Q6H PRN PRN #10 tablet PRN Reason: Vomiting Cefdinir 300 mg PO BID #14 cap
[2024-09-16 20:30] VITALS: TEMP 96.7
[2024-09-16] MEDS ORDERED: Sodium Chloride 0.9% 1000 ML 1,000 ML ONE (21:11)
[2024-09-16] MEDS ORDERED: Zofran 4 MG/2 ML VIAL ONE (21:11)
[2024-09-16] MEDS: Sodium Chloride 0.9% 1000 ML 1,000 ML IV STA (21:14)
[2024-09-16] MEDS: Zofran 4 MG/2 ML VIAL IV STA (21:14)
[2024-09-16 21:41] LABS: Absolute Neutrophil Ct (ANC) 7.75 x10^3/uL (1.56-6.13); BASOPHIL % 0.4 % (0.1-1.2); Basophil (Absolute #) 0.05 x10^3/uL (0.01-0.08); Eosinophil % 1.5 % (0.7-5.8); Eosinophil (Absolute #) 0.17 x10^3/uL (0.04-0.36); Hematocrit 40.9 % (34.1-44.9); Hemoglobin 13.7 g/dL (11.2-15.7); IMMATURE GRAN # 0.03 x10^3u/L (0.001-0.031); IMMATURE GRAN % 0.3 % (0.001-0.429); Lymphocyte (Absolute #) 2.93 x10^3/uL (1.18-3.74); Lymphocytes % 25.2 % (19.3-51.7); Mean Cell Volume 86.5 fL (79.4-94.8); Mean Corpuscular Hgb Concent. 33.5 g/dL (32.2-35.5); Mean Platelet Volume 9.5 fL (9.4-12.3); Monocyte (Absolute #) 0.69 x10^3/uL (0.24-0.86); Monocytes % 5.9 % (4.7-12.5); Neutrophil % 66.7 % (34.0-71.1); Platelet Count 423 x10^3/uL (182-369); Red Blood Count 4.73 x10^6/uL (3.93-5.22); Red Cell Distribution Width 12.8 % (11.7-14.4); White Blood Count 11.6 x10^3/uL (3.98-10.04)
[2024-09-16 21:44] LABS: HCG URINE TEST NEGATIVE (NEGATIVE)
[2024-09-16 22:02] LABS: ALBUMIN 4.8 g/dL (3.5-5.0); ANION GAP 13.7 MEQ/L (5-15); BILIRUBIN,TOTAL 1.6 mg/dL (0.2-1.3); Calcium 9.5 mg/dL (8.4-10.2); Creatinine 1 0.67 mg/dL (0.52-1.04); EST GLOMERULAR FILTRATION RATE 121.3 ML/MIN; Potassium 3.5 mmol/L (3.5-5.1); Total Protein 8.1 g/dL (6.3-8.2)
[2024-09-16 22:04] LABS: Appearance Turbid (Clear); Bacteria Many /HPF (None Seen); Bilirubin Moderate (Negative); Blood Large (Negative); Epithelial Cells Many /HPF (None Seen); Glucose, Urine Negative (Negative); Ketones Negative (Negative); Leukocyte Esterase Small (Negative); Nitrite Positive (Negative); Protein,Urine Dip 100 (Negative); RBC >100 /HPF (0-5); Specific Gravity >=1.030 (1.005-1.030); Urobilinogen 0.2 mg/dL (0.2)
[2024-09-16 22:05] LABS: Hyaline Casts 20-50 /LPF (0-2); Mucus Many /HPF (NEGATIVE)
[2024-09-16 22:18] LABS: INFLUENZA A NEGATIVE (NEGATIVE); INFLUENZA B NEGATIVE (NEGATIVE); RESPIRATORY SYNCTIAL VIRUS NEGATIVE (NEGATIVE); SARS-CoV-2 Xpert Express NEGATIVE (NEGATIVE)
[2024-09-16] MEDS ORDERED: ROCEPHIN 1 GM / 100 ML NaCl 1 GM/100 ML IVPB IV ONE (22:22)
[2024-09-16] MEDS: ROCEPHIN 1 GM / 100 ML NaCl 1 GM/100 ML IVPB IV ONE (22:23)
[2024-09-16 22:58] VITALS: BP 129/89; PULSE 64; RESP 18; O2SAT 99
== END 2024-09-16 22:55 | disposition home or self-care (01) ==
LOC: ED 18:14
DX: D72.829 Elevated white blood cell count, unspecified (principal); N39.0 Urinary tract infection, site not specified; R11.2 Nausea with vomiting, unspecified; R51.9 Headache, unspecified; M79.10 Myalgia, unspecified site; J02.9 Acute pharyngitis, unspecified; R05.1 Acute cough; I10 Essential (primary) hypertension; E11.9 Type 2 diabetes mellitus without complications; Z79.84 Long term (current) use of oral hypoglycemic drugs; Z79.899 Other long term (current) drug therapy
CPT/HCPCS: 0241U; 36415; 80053; 81001; 81025; 85025; 86308; 87086; 94760; 96374; 96375; 99284; J0696; J2405